=== PATIENT | male | born 1945 | race Caucasian/White ===

== ENCOUNTER 2020-06-03 08:02 | Outpatient (REF) | payer MEDICARE, SELFPAY ==
[2020-06-03 12:08] LABS: INTERNATIONAL NORM RATIO 2.5 (0.9-1.1); Prothrombin Time 30.5 SEC (10.8-13.0)
== END 2020-06-03 08:03 | disposition home or self-care (01) ==
LOC: HO.LHD 08:02
PROVIDERS: Visit Provider Family Medicine
DX: I48.0 Paroxysmal atrial fibrillation (principal); Z79.01 Long term (current) use of anticoagulants
CPT/HCPCS: 36415; 85610

== ENCOUNTER 2020-06-17 08:21 | Outpatient (REF) | payer MEDICARE, SELFPAY ==
[2020-06-17 11:37] LABS: INTERNATIONAL NORM RATIO 2.1 (0.9-1.1); Prothrombin Time 25.1 SEC (10.8-13.0)
== END 2020-06-17 08:22 | disposition home or self-care (01) ==
LOC: HO.LHD 08:21
PROVIDERS: Visit Provider Family Medicine
DX: I48.0 Paroxysmal atrial fibrillation (principal); Z79.01 Long term (current) use of anticoagulants
CPT/HCPCS: 36415; 85610

== ENCOUNTER 2020-07-01 04:15 | Outpatient (REF) | payer MEDICARE, SELFPAY ==
[2020-07-01 10:42] LABS: Basophils Percent Auto 0.1 % (0-2); Eosinophils Absolute Auto 0.1 X10*3/uL (0.0-0.4); Eosinophils Percent Auto 1.6 % (0-4); Lymphocytes Absolute Auto 0.9 X10*3/uL (1.2-4.9)
[2020-07-01 10:44] LABS: Hematocrit 44.4 % (42-52); Hemoglobin 14.1 g/dl (14.0-18.0); Imm Gran Abs Auto 0.01 X10*3/uL (0.00-0.03); Imm Gran Pct Auto 0.1 % (0.0-0.4); Lymphocytes Percent Auto 11.4 % (20-40); Mean Corpuscular HGB Conc 31.8 g/dl (31.0-36.0); Mean Corpuscular Hemoglobin 31.5 pg (27.0-33.0); Mean Corpuscular Volume 99.3 fL (80-98); Mean Platelet Volume 10.9 fL (9.4-12.4); Monocytes Absolute Auto 0.4 X10*3/uL (0.1-1.2); Monocytes Percent Auto 5.9 % (2-11); Neutrophils Percent Auto 80.9 % (45-73); Red Blood Count 4.47 X10*6/uL (4.60-5.80); White Blood Count 7.5 X10*3/uL (4.8-10.8)
[2020-07-01 10:48] LABS: Platelet Count 63 X10*3/uL (160-400)
[2020-07-01 11:04] LABS: Lithium 0.53 mmol/L (0.60-1.20); Prothrombin Time 24.1 SEC (10.8-13.0)
[2020-07-01 11:16] LABS: Anion Gap 13 (12-20); Blood Urea Nitrogen 17 mg/dL (9-16); Carbon Dioxide 27 mmol/L (22-29); Chloride 108 mmol/L (96-108); Estimated Glomerular Filt Rate > 60; Potassium 4.4 mmol/l (3.3-5.1); Sodium 144 mmol/L (135-145)
== END 2020-07-01 04:16 | disposition home or self-care (01) ==
LOC: HO.LHD 04:15
PROVIDERS: Visit Provider Family Medicine
DX: D69.6 Thrombocytopenia, unspecified (principal); I10 Essential (primary) hypertension; Z79.899 Other long term (current) drug therapy; I48.0 Paroxysmal atrial fibrillation
CPT/HCPCS: 36415; 80051; 80178; 82565; 84520; 85025; 85610

== ENCOUNTER 2020-07-15 05:08 | Outpatient (REF) | payer MEDICARE, SELFPAY ==
[2020-07-15 10:51] LABS: INTERNATIONAL NORM RATIO 3.2 (0.9-1.1); Prothrombin Time 38.1 SEC (10.8-13.0)
== END 2020-07-15 05:09 | disposition home or self-care (01) ==
LOC: HO.LHD 05:08
PROVIDERS: Visit Provider Family Medicine
DX: I48.0 Paroxysmal atrial fibrillation (principal); Z79.01 Long term (current) use of anticoagulants
CPT/HCPCS: 36415; 85610

== ENCOUNTER 2020-07-22 08:10 | Outpatient (REF) | payer MEDICARE, SELFPAY ==
[2020-07-22 11:35] LABS: INTERNATIONAL NORM RATIO 3.6 (0.9-1.1); Prothrombin Time 43.9 SEC (10.8-13.0)
== END 2020-07-22 08:11 | disposition home or self-care (01) ==
LOC: HO.LHD 08:10
PROVIDERS: Visit Provider Family Medicine
DX: I48.0 Paroxysmal atrial fibrillation (principal); Z79.01 Long term (current) use of anticoagulants
CPT/HCPCS: 36415; 85610

== ENCOUNTER 2020-07-28 | Outpatient (REF) | payer MEDICARE, SELFPAY ==
[2020-07-28 11:42] LABS: INTERNATIONAL NORM RATIO 1.3 (0.9-1.1); Prothrombin Time 15.4 SEC (10.8-13.0)
== END 2020-07-28 00:01 | disposition home or self-care (01) ==
LOC: HO.LHD
PROVIDERS: Visit Provider Family Medicine
DX: I48.91 Unspecified atrial fibrillation (principal); Z79.01 Long term (current) use of anticoagulants
CPT/HCPCS: 36415; 85610

== ENCOUNTER 2020-07-31 | Outpatient (REF) | payer MEDICARE, SELFPAY ==
[2020-07-31 10:50] LABS: INTERNATIONAL NORM RATIO 1.1 (0.9-1.1); Prothrombin Time 13.4 SEC (10.8-13.0)
== END 2020-07-31 00:01 | disposition home or self-care (01) ==
LOC: HO.LHD
PROVIDERS: Visit Provider Family Medicine
DX: I48.0 Paroxysmal atrial fibrillation (principal); Z79.01 Long term (current) use of anticoagulants
CPT/HCPCS: 36415; 85610

== ENCOUNTER 2020-08-08 08:49 | Outpatient (REF) | payer MEDICARE, SELFPAY ==
[2020-08-08 11:37] LABS: INTERNATIONAL NORM RATIO 2.7 (0.9-1.1); Prothrombin Time 32.3 SEC (10.8-13.0)
== END 2020-08-08 08:50 | disposition home or self-care (01) ==
LOC: HO.LHD 08:49
PROVIDERS: Visit Provider Family Medicine
DX: I48.0 Paroxysmal atrial fibrillation (principal); Z79.01 Long term (current) use of anticoagulants
CPT/HCPCS: 36415; 85610

== ENCOUNTER 2020-08-13 08:22 | Outpatient (REF) | payer MEDICARE, SELFPAY ==
[2020-08-13 11:19] LABS: Prothrombin Time 35.6 SEC (10.8-13.0)
== END 2020-08-13 08:23 | disposition home or self-care (01) ==
LOC: HO.LHD 08:22
PROVIDERS: Visit Provider Family Medicine
DX: I48.0 Paroxysmal atrial fibrillation (principal); Z79.01 Long term (current) use of anticoagulants
CPT/HCPCS: 36415; 85610

== ENCOUNTER 2020-08-20 05:33 | Outpatient (REF) | payer MEDICARE, SELFPAY ==
[2020-08-20 11:01] LABS: Prothrombin Time 35.5 SEC (10.8-13.0)
== END 2020-08-20 05:34 | disposition home or self-care (01) ==
LOC: HO.LHD 05:33
PROVIDERS: Visit Provider Family Medicine
DX: I48.0 Paroxysmal atrial fibrillation (principal); Z79.01 Long term (current) use of anticoagulants
CPT/HCPCS: 36415; 85610

== ENCOUNTER 2020-09-03 | Outpatient (REF) | payer MEDICARE, SELFPAY ==
[2020-09-03 10:59] LABS: Prothrombin Time 48.3 SEC (10.8-13.0)
== END 2020-09-03 00:01 ==
LOC: HO.LHD
PROVIDERS: Visit Provider Family Medicine
DX: I48.0 Paroxysmal atrial fibrillation (principal); Z79.01 Long term (current) use of anticoagulants
CPT/HCPCS: 36415; 85610

== ENCOUNTER 2020-09-10 | Outpatient (REF) | payer MEDICARE, SELFPAY ==
[2020-09-10 11:15] LABS: INTERNATIONAL NORM RATIO 3.5 (0.9-1.1); Prothrombin Time 42.2 SEC (10.8-13.0)
== END 2020-09-10 00:01 | disposition home or self-care (01) ==
LOC: HO.LHD
PROVIDERS: Visit Provider Family Medicine
DX: I48.0 Paroxysmal atrial fibrillation (principal); Z79.01 Long term (current) use of anticoagulants
CPT/HCPCS: 36415; 85610

== ENCOUNTER 2020-09-18 05:00 | Outpatient (REF) | payer MEDICARE, SELFPAY ==
[2020-09-18 11:27] LABS: INTERNATIONAL NORM RATIO 2.6 (0.9-1.1); Prothrombin Time 30.7 SEC (10.8-13.0)
== END 2020-09-18 05:01 | disposition home or self-care (01) ==
LOC: HO.LHD 05:00
PROVIDERS: Visit Provider Family Medicine
DX: I48.0 Paroxysmal atrial fibrillation (principal); Z79.01 Long term (current) use of anticoagulants
CPT/HCPCS: 36415; 85610

== ENCOUNTER 2020-10-02 13:52 | Outpatient (REF) | payer MEDICARE, SELFPAY ==
[2020-10-02 11:23] LABS: INTERNATIONAL NORM RATIO 3.9 (0.9-1.1); Prothrombin Time 46.5 SEC (10.8-13.0)
== END 2020-10-02 13:53 | disposition home or self-care (01) ==
LOC: HO.LHD 13:52
PROVIDERS: Visit Provider Family Medicine
DX: E03.9 Hypothyroidism, unspecified (principal)
CPT/HCPCS: 36415; 84439; 85610

== ENCOUNTER 2020-10-04 09:57 | Outpatient (REF) | payer MEDICARE, SELFPAY ==
--- NOTE | ~2020-10-04 | XR_ITS ---
EXAMINATION: XR CHEST CLINICAL INFORMATION: Shortness of breath. COMPARISON: 09/27/2018 chest radiograph. TECHNIQUE: 2 views of the chest were obtained. FINDINGS: An infiltrate is seen in the right lower lobe. The right upper lung field and left lung are clear. There are no pleural effusions. The heart and mediastinal structures are unremarkable. A left-sided pacemaker appears in good position. XR/XR chest 2V IMPRESSION: Right lower lobe infiltrate.
[2020-10-04 11:13] LABS: Eosinophils Absolute Auto 0.1 X10*3/uL (0.0-0.4); Hemoglobin 13.9 g/dl (14.0-18.0); Imm Gran Abs Auto 0.01 X10*3/uL (0.00-0.03); Imm Gran Pct Auto 0.2 % (0.0-0.4); MANUAL DIFF FLAG SCAN; Monocytes Absolute Auto 0.3 X10*3/uL (0.1-1.2); PLT CLUMP 1; SCAN SMEAR FLAG 1
[2020-10-04 11:15] LABS: Hematocrit 42.9 % (42-52); Lymphocytes Absolute Auto 0.6 X10*3/uL (1.2-4.9); Lymphocytes Percent Auto 11.8 % (20-40); Mean Corpuscular HGB Conc 32.4 g/dl (31.0-36.0); Mean Corpuscular Volume 95.5 fL (80-98); Mean Platelet Volume 10.8 fL (9.4-12.4); Monocytes Percent Auto 6.6 % (2-11); Neutrophils Absolute Auto 4.2 X10*3/uL (2.0-8.3); Neutrophils Percent Auto 80.4 % (45-73); Red Blood Count 4.49 X10*6/uL (4.60-5.80); Red Cell Distribution Width 14.2 % (11.0-16.0); White Blood Count 5.2 X10*3/uL (4.8-10.8)
[2020-10-04 11:19] LABS: Platelet Count 63 X10*3/uL (160-400)
[2020-10-04 11:37] LABS: Lithium 0.62 mmol/L (0.60-1.20)
[2020-10-04 11:42] LABS: SLIDE REVIEW VERIFIED
[2020-10-04 11:51] LABS: Alanine Aminotransferase 17 U/L (0-40); Albumin Level 3.8 g/dL (3.5-5.0); Alkaline Phosphatase 110 U/L (39-117); Anion Gap 12 (12-20); Aspartate Amino Transferase 13 U/L (5-37); Bilirubin Total 0.6 mg/dL (0.0-1.0); Blood Urea Nitrogen 12 mg/dL (9-16); Calcium 7.9 mg/dL (8.4-10.2); Carbon Dioxide 25 mmol/L (22-29); Chloride 107 mmol/L (96-108); Estimated Glomerular Filt Rate 54; Glucose Fasting 125 mg/dL (60-99); Sodium 140 mmol/L (135-145); Total Protein 6.5 g/dL (6.5-8.0)
== END 2020-10-04 09:58 | disposition home or self-care (01) ==
LOC: HO.LAB 09:57
PROVIDERS: PCP Family Medicine; Visit Provider Family Medicine
DX: R06.02 Shortness of breath (principal); R63.1 Polydipsia; Z79.899 Other long term (current) drug therapy
CPT/HCPCS: 36415; 71046; 80053; 80178; 85025

== ENCOUNTER 2020-10-28 07:10 | Outpatient (REF) | payer MEDICARE, SELFPAY ==
[2020-10-28 11:21] LABS: INTERNATIONAL NORM RATIO 2.1 (0.9-1.1); Prothrombin Time 25.4 SEC (10.8-13.0)
== END 2020-10-28 07:11 | disposition home or self-care (01) ==
LOC: HO.LHD 07:10
PROVIDERS: Visit Provider Family Medicine
DX: I48.0 Paroxysmal atrial fibrillation (principal); Z79.01 Long term (current) use of anticoagulants
CPT/HCPCS: 36415; 85610

== ENCOUNTER 2020-11-11 06:56 | Outpatient (REF) | payer MEDICARE, SELFPAY ==
[2020-11-11 11:24] LABS: INTERNATIONAL NORM RATIO 2.2 (0.9-1.1); Prothrombin Time 26.9 SEC (10.8-13.0)
== END 2020-11-11 06:57 | disposition home or self-care (01) ==
LOC: HO.LHD 06:56
PROVIDERS: Visit Provider Family Medicine
DX: I48.0 Paroxysmal atrial fibrillation (principal)
CPT/HCPCS: 36415; 85610

== ENCOUNTER 2020-11-25 07:01 | Outpatient (REF) | payer MEDICARE, SELFPAY ==
[2020-11-25 12:04] LABS: INTERNATIONAL NORM RATIO 3.9 (0.9-1.1); Prothrombin Time 47.5 SEC (10.8-13.0)
== END 2020-11-25 07:02 | disposition home or self-care (01) ==
LOC: HO.LHD 07:01
PROVIDERS: Visit Provider Family Medicine
DX: I48.0 Paroxysmal atrial fibrillation (principal)
CPT/HCPCS: 36415; 85610

== ENCOUNTER 2020-11-27 07:19 | Outpatient (REF) | payer MEDICARE, SELFPAY ==
[2020-11-27 11:44] LABS: INTERNATIONAL NORM RATIO 3.9 (0.9-1.1)
== END 2020-11-27 07:20 | disposition home or self-care (01) ==
LOC: HO.LHD 07:19
PROVIDERS: Visit Provider Family Medicine
DX: I48.0 Paroxysmal atrial fibrillation (principal)
CPT/HCPCS: 36415; 85610

== ENCOUNTER 2020-12-04 00:10 | Outpatient (REF) | payer MEDICARE, SELFPAY ==
[2020-12-04 11:15] LABS: INTERNATIONAL NORM RATIO 1.9 (0.9-1.1); Prothrombin Time 22.2 SEC (10.8-13.0)
== END 2020-12-04 00:11 | disposition home or self-care (01) ==
LOC: HO.LHD 00:10
PROVIDERS: Visit Provider Family Medicine
DX: I48.0 Paroxysmal atrial fibrillation (principal)
CPT/HCPCS: 36415; 85610

== ENCOUNTER 2020-12-11 01:50 | Outpatient (REF) | payer MEDICARE, SELFPAY ==
[2020-12-11 13:17] LABS: INTERNATIONAL NORM RATIO 1.9 (0.9-1.1); Prothrombin Time 23.1 SEC (10.8-13.0)
== END 2020-12-11 01:51 | disposition home or self-care (01) ==
LOC: HO.LHD 01:50
PROVIDERS: Visit Provider Family Medicine
DX: I48.0 Paroxysmal atrial fibrillation (principal); Z79.01 Long term (current) use of anticoagulants; Z51.81 Encounter for therapeutic drug level monitoring
CPT/HCPCS: 36415; 85610

== ENCOUNTER 2020-12-25 01:07 | Outpatient (REF) | payer MEDICARE, SELFPAY ==
[2020-12-25 11:50] LABS: INTERNATIONAL NORM RATIO 1.7 (0.9-1.1); Prothrombin Time 19.8 SEC (10.8-13.0)
== END 2020-12-25 01:08 | disposition home or self-care (01) ==
LOC: HO.LHD 01:07
PROVIDERS: Visit Provider Family Medicine
DX: I48.0 Paroxysmal atrial fibrillation (principal)
CPT/HCPCS: 36415; 85610

== ENCOUNTER 2021-01-08 00:35 | Outpatient (REF) | payer MEDICARE, SELFPAY ==
[2021-01-08 11:40] LABS: INTERNATIONAL NORM RATIO 1.5 (0.9-1.1); Prothrombin Time 17.6 SEC (10.8-13.0)
== END 2021-01-08 00:36 | disposition home or self-care (01) ==
LOC: HO.LHD 00:35
PROVIDERS: Visit Provider Family Medicine
DX: I48.0 Paroxysmal atrial fibrillation (principal)
CPT/HCPCS: 36415; 85610

== ENCOUNTER 2021-01-30 08:36 | Outpatient (REF) | payer MEDICARE, SELFPAY ==
[2021-01-30 11:15] LABS: INTERNATIONAL NORM RATIO 1.4 (0.9-1.1); Prothrombin Time 17.2 SEC (10.8-13.0)
== END 2021-01-30 08:37 | disposition home or self-care (01) ==
LOC: HO.LHD 08:36
PROVIDERS: Visit Provider Family Medicine
DX: I48.0 Paroxysmal atrial fibrillation (principal)
CPT/HCPCS: 36415; 85610

== ENCOUNTER 2021-02-05 06:37 | Outpatient (REF) | payer MEDICARE, SELFPAY ==
[2021-02-05 11:09] LABS: INTERNATIONAL NORM RATIO 1.6 (0.9-1.1); Prothrombin Time 18.6 SEC (10.8-13.0)
== END 2021-02-05 06:38 | disposition home or self-care (01) ==
LOC: HO.LHD 06:37
PROVIDERS: Visit Provider Family Medicine
DX: I48.0 Paroxysmal atrial fibrillation (principal)
CPT/HCPCS: 36415; 85610

== ENCOUNTER 2021-02-19 00:39 | Outpatient (REF) | payer MEDICARE, SELFPAY ==
[2021-02-19 11:59] LABS: INTERNATIONAL NORM RATIO 1.9 (0.9-1.1); Prothrombin Time 23.3 SEC (10.8-13.0)
== END 2021-02-19 00:40 | disposition home or self-care (01) ==
LOC: HO.LHD 00:39
PROVIDERS: Visit Provider Family Medicine
DX: I48.0 Paroxysmal atrial fibrillation (principal)
CPT/HCPCS: 36415; 85610

== ENCOUNTER → 2021-02-23 14:35 | Outpatient (BNVA) | payer MEDICARE, SELFPAY | PROVIDERS: PCP Family Medicine; Visit Provider Internal Medicine Cardiovascular Disease | DX: Z45.018 Encounter for adjustment and management of other part of cardiac pacemaker (principal); R06.02 Shortness of breath; I48.92 Unspecified atrial flutter | CPT/HCPCS: 93005; 99212 ==

== ENCOUNTER 2021-03-05 01:12 | Outpatient (REF) | payer MEDICARE, SELFPAY ==
[2021-03-05 11:23] LABS: INTERNATIONAL NORM RATIO 1.8 (0.9-1.1); Prothrombin Time 20.8 SEC (9.9-13.0)
== END 2021-03-05 01:13 | disposition home or self-care (01) ==
LOC: HO.LHD 01:12
PROVIDERS: Visit Provider Family Medicine
DX: Z13.89 Encounter for screening for other disorder (principal)
CPT/HCPCS: 36415; 85610

== ENCOUNTER 2021-03-17 10:08 | Emergency (ER) | payer MEDICARE, SELFPAY ==
--- NOTE | 2021-03-17 | ECG_ITS ---
Test Reason : SOB,RAPID HR Blood Pressure : / mmHG Vent. Rate : 061 BPM Atrial Rate : 078 BPM P-R Int : 242 ms QRS Dur : 162 ms QT Int : 478 ms P-R-T Axes : -28 -32 122 degrees QTc Int : 481 ms Poor data quality AV dual-paced rhythm Abnormal ECG When compared with ECG of 27-SEP-2018 12:45, Poor data quality in current ECG precludes serial comparison Referred By: Radha Florian Electronically Signed By:FAYE HIGGINS MD
--- NOTE | ~2021-03-17 | XR_ITS ---
EXAMINATION: XR CHEST CLINICAL INFORMATION: SOB, chest pain COMPARISON: None TECHNIQUE: 2 views of the chest were obtained. FINDINGS: The lungs are well-expanded and clear of acute process. The heart size and pulmonary vascularity is normal. There are dual pacer electrodes in right atrium and right ventricle. No gross bony abnormality seen. XR/XR chest 2V IMPRESSION: Unremarkable chest exam.
[2021-03-17 10:15] VITALS: BP 158/90; PULSE 65; O2SAT 94
[2021-03-17 10:17] VITALS: BP 156/78; PULSE 64; RESP 18; TEMP 36.8; O2SAT 97; BMI 34.7
--- NOTE | 2021-03-17 10:33 | ED.ARRPALP ---
HPI - Arrhythmia/Palpitations General Chief Complaint: Arrhythmia/Palpitations Stated Complaint: tachy, dizzy Time Seen by Provider: 03/17/21 10:19 Source: patient and EMS Mode of arrival: EMS Limitations: no limitations History of Present Illness HPI narrative: 75-year-old male with a past medical history of atrial flutter on coumadin, SSS s/p pacemaker, hypertension, thrombocytopenia, asthma here with complaints of shortness of breath, palpitations. Patient tells me he has chronic shortness of breath and has had this intermittently on off for months. He did note this morning when he woke up at 04:00 to the bathroom he had a sensation of chest ?fluttering. This has been intermittent throughout the morning since. He does not feel like it is worsened with position changes. He denies any associated pain, leg swelling, leg pain, fevers, chills, cough. Of note, the patient was seen by Dr. Martini on February 23. At that time he was complaining of shortness of breath. He had his pacemaker interrogated. Due to complaints of shortness of breath an echocardiogram was ordered to r/o LV dysfunction which has not been completed. Related Data Home Medications Medication Instructions Recorded Confirmed atorvastatin 80 mg tablet 80 mg PO DAILY 02/23/21 02/23/21 bupropion HCl 300 mg 24 hr tablet, 300 mg PO QAM 02/23/21 02/23/21 extended release folic acid 1 mg tablet 1 mg PO DAILY 02/23/21 02/23/21 gabapentin 300 mg capsule 300 mg PO BID 02/23/21 02/23/21 levothyroxine 50 mcg capsule 50 mcg PO DAILY 02/23/21 02/23/21 lithium carbonate 300 mg capsule 300 mg PO BID 02/23/21 02/23/21 metoprolol tartrate 25 mg tablet 25 mg PO DAILY 02/23/21 02/23/21 warfarin 1 mg tablet 1 mg PO DAILY 02/23/21 02/23/21 warfarin 5 mg tablet 5 mg PO DAILY 02/23/21 02/23/21 Allergies Allergy/AdvReac Type Severity Reaction Status Date / Time methylphenidate [Ritalin] Allergy Unknown Verified 04/17/20 00:00 ragweed pollen [RAGWEED] Allergy Unknown SNEEZE Unverified 05/15/20 15:13 tizanidine [Zanaflex] Allergy Unknown Verified 04/17/20 00:00 Review of Systems Review of Systems: Yes all other systems are reviewed and are negative Constitutional: Constitutional: Reports no additional constitutional complaints, Denies body ache(s), Denies chills, Denies fever(s), Denies headache(s) and Denies weakness Eyes: Eyes: Reports no additional eye complaints and Denies change in vision ENT: Reports system reviewed and no additional complaints, except as documented, Denies dizziness, Denies headache(s), Denies nasal congestion, Denies nasal discharge and Denies neck pain Cardiovascular: Cardiovascular: Reports no additional cardiovascular complaints, Denies chest pain, Denies leg edema, Reports palpitations and Reports dyspnea Respiratory: Respiratory: Reports no additional respiratory complaints, Denies cough and Reports dyspnea Gastrointestinal: Gastrointestinal: Reports no additional gastrointestinal complaints, Denies abdominal pain, Denies diarrhea, Denies nausea and Denies vomiting Genitourinary: Genitourinary: Denies urinary incontinence Musculoskeletal: Musculoskeletal: Reports no additional musculoskeletal complaints, Denies back pain, Denies arthralgias, Denies joint swelling, Denies neck pain, Denies numbness and Denies tingling Integumentary/Breasts: Skin/Breast: Reports system reviewed and no additional complaints, except as docu and Denies rash Neurologic: Reports system reviewed and no additional complaints, except as documented, Denies Abnormal speech present, Denies dizziness, Denies headache(s), Denies numbness, Denies tingling and Denies weakness Endocrine: Endocrine: Reports palpitations PMFSH Past Medical History Attestation statement: The following information was validated with the patient. Source: old records reviewed and nursing notes reviewed Medical History (Updated 03/17/21 @ 13:49 by Ashu Brooke NP) Asthma Cardiac pacemaker in situ DJD (degenerative joint disease) High cholesterol HTN (hypertension) Hypothyroidism IBS (irritable bowel syndrome) Parkinsons Paroxysmal atrial flutter Peripheral neuropathy Psychiatric diagnosis Sick sinus syndrome Social History Social History Alcohol intake: current Alcohol intake frequency: a few times a week Alcohol type: beer Patient Tobacco Use Status: Former Tobacco user Use of substances other than those prescribed or required for medical reasons: No Advance Directives: Yes Advance Directives on File: Yes Advance Directives Date on File: 03/17/21 Physical Exam Vital Signs: Vital Signs: Last Vital Signs Temp 98.2 F 03/17/21 10:17 Pulse 68 03/17/21 12:23 Resp 18 03/17/21 12:23 BP 117/67 03/17/21 12:23 Pulse Ox 93 03/17/21 12:23 Oxygen Flow Rate 3 03/17/21 10:17 Body Mass Index 34.7 Const: General: cooperative, healthy appearing, comfortable and no acute distress Orientation/consciousness: patient oriented x3 Limitations: no limitations HENMT: Head: Yes normal to inspection Ears: hearing grossly normal bilaterally General nose exam: Normal external nose present Face and sinus: Yes normal facial exam Mouth: Normal oral and palatal mucosa present Throat: Yes posterior oropharynx normal Eyes: General: appearance normal, both eyes and all related structures Pupils: Equal, round and reactive pupils present Neck: Neck: Yes normal visual inspection Chest: Chest palpation & inspection: normal inspection of the chest Resp: Other: Diminished breath sounds bilaterally. Speaking short phrases Effort & Inspection: normal respiratory effort Cardio: Rate: regular rate Rhythm: regular rhythm Peripheral pulses: Peripheral pulses 2+ throughout GI: Inspection: Yes normal to inspection Palpation (GI): Soft to palpation and nontender Auscultation: normal bowel sounds Back/Spine/Pelvis: Thoracic/Lumbar Spine: thoracic and lumbar spine normal to inspection Skin: General skin exam: no rashes or lesions noted Neuro: General: patient oriented x3, no focal motor deficits and normal sensation to monofilament Cranial nerves: Yes Equal, round and reactive pupils present Cognition (Neuro): normal cognition Speech: No Abnormal speech present Gait exam (Neuro): Normal gait present Motor exam (neuro): 5/5 motor strength present throughout Extrem: General: Yes normal to inspection, Yes no pedal edema and Yes no calf tenderness Course Course Course Narrative: 75-year-old male here with complaints of a chronic shortness of breath now with symptoms of chest fluttering intermittent since 04:00. No other complaints. Patient is hemodynamically stable. He has a atrial paced rhythm with a rate of 61 on arrival. Mild shortness of breath noted with speaking. Diminished breath sounds with stable saturations 94% on room air. Will check EKG, chest x-ray, labs. 1040-reviewed records from Dr. Roy office. 1115-chest x-ray unremarkable. Initial set of labs showed indeterminate troponin but otherwise labs look at baseline for patient. EKG shows no ischemic changes. He does have an atrial paced rhythm with a rate of 60. Plan for repeat 3 hour troponin. Will also perform an ambulatory oxygen saturation. 1133-patient walked with a steady gait with a pulse oximeter of 93-95% with no tachypnea on RA. 1430-repeat troponin delta. Patient is speaking full sentences. Oxygen saturation stable on room air. He can follow up outpatient with his providers. Reviewed worrisome signs and symptoms and when to return to the emergency department. Comfortable discharge home. MDM - Arrhythmia/Palpitations Differential Diagnosis Differential diagnosis: Likely palpitations, anxiety and artial flutter Medical Records Attestation: I reviewed the patient's medical records. Lab Data Attestation: I reviewed the patient's lab results. Result diagrams: 03/17/21 10:33 03/17/21 10:33 Labs: Lab Results 03/17/21 03/17/21 03/17/21 Range/Units 10:33 10:33 10:33 WBC 8.8 (4.8-10.8) X10*3/uL RBC 4.44 L (4.60-5.80) X10*6/uL Hgb 14.2 (14.0-18.0) g/dl Hct 44.0 (42-52) % MCV 99.1 H (80-98) fL MCH 32.0 (27.0-33.0) pg MCHC 32.3 (31.0-36.0) g/dl RDW 14.5 (11.0-16.0) % Plt Count 62 L (160-400) X10*3/uL MPV 10.9 (9.4-12.4) fL Immature Gran % (Auto) 0.5 H (0.0-0.4) % Neut % (Auto) 81.6 H (45-73) % Lymph % (Auto) 10.7 L (20-40) % Smith % (Auto) 5.7 (2-11) % Eos % (Auto) 1.4 (0-4) % Baso % (Auto) 0.1 (0-2) % Lymph # (Auto) 1.0 L (1.2-4.9) X10*3/uL Smith # (Auto) 0.5 (0.1-1.2) X10*3/uL Eos # (Auto) 0.1 (0.0-0.4) X10*3/uL Baso # (Auto) 0.0 (0.0-0.2) X10*3/uL Abs Immat Gran (auto) 0.04 H (0.00-0.03) X10*3/uL Absolute Neuts (auto) 7.2 (2.0-8.3) X10*3/uL Absolute Nucleated RBC 0.000 (0.0-0.012) X10*3/uL Nucleated RBC % (auto) 0.0 (0.0-0.2) /100WBC PT 18.6 H (9.9-13.0) SEC INR 1.6 H (0.9-1.1) Sodium 141 (135-145) mmol/L Potassium 4.1 (3.3-5.1) mmol/L Chloride 110 H (96-108) mmol/L Carbon Dioxide 25 (22-29) mmol/L Anion Gap 10 L (12-20) BUN 20 H D (9-16) mg/dL Creatinine 1.14 (0.5-1.4) mg/dL Estim Creat Clear Calc 76.6 Estimated GFR > 60 Random Glucose 103 (60-115) mg/dL Calcium 8.2 L (8.4-10.2) mg/dL Magnesium (1.6-2.6) mg/dL Total Bilirubin (0.0-1.0) mg/dL Direct Bilirubin (0.0-0.5) mg/dL AST (5-37) U/L ALT (0-40) U/L Alkaline Phosphatase (39-117) U/L Troponin I High Sens (<3.5-35.0) ng/L B-Natriuretic Peptide (<100) pg/mL Total Protein (6.5-8.0) g/dL Albumin (3.5-5.0) g/dL 03/17/21 03/17/21 03/17/21 Range/Units 10:33 10:33 13:15 WBC (4.8-10.8) X10*3/uL RBC (4.60-5.80) X10*6/uL Hgb (14.0-18.0) g/dl Hct (42-52) % MCV (80-98) fL MCH (27.0-33.0) pg MCHC (31.0-36.0) g/dl RDW (11.0-16.0) % Plt Count (160-400) X10*3/uL MPV (9.4-12.4) fL Immature Gran % (Auto) (0.0-0.4) % Neut % (Auto) (45-73) % Lymph % (Auto) (20-40) % Smith % (Auto) (2-11) % Eos % (Auto) (0-4) % Baso % (Auto) (0-2) % Lymph # (Auto) (1.2-4.9) X10*3/uL Smith # (Auto) (0.1-1.2) X10*3/uL Eos # (Auto) (0.0-0.4) X10*3/uL Baso # (Auto) (0.0-0.2) X10*3/uL Abs Immat Gran (auto) (0.00-0.03) X10*3/uL Absolute Neuts (auto) (2.0-8.3) X10*3/uL Absolute Nucleated RBC (0.0-0.012) X10*3/uL Nucleated RBC % (auto) (0.0-0.2) /100WBC PT (9.9-13.0) SEC INR (0.9-1.1) Sodium (135-145) mmol/L Potassium (3.3-5.1) mmol/L Chloride (96-108) mmol/L Carbon Dioxide (22-29) mmol/L Anion Gap (12-20) BUN (9-16) mg/dL Creatinine (0.5-1.4) mg/dL Estim Creat Clear Calc Estimated GFR Random Glucose (60-115) mg/dL Calcium (8.4-10.2) mg/dL Magnesium 2.3 (1.6-2.6) mg/dL Total Bilirubin 0.5 (0.0-1.0) mg/dL Direct Bilirubin 0.2 (0.0-0.5) mg/dL AST 13 (5-37) U/L ALT < 6 (0-40) U/L Alkaline Phosphatase 91 (39-117) U/L Troponin I High Sens 4.1 5.4 (<3.5-35.0) ng/L B-Natriuretic Peptide 57 (<100) pg/mL Total Protein 6.5 (6.5-8.0) g/dL Albumin 3.8 (3.5-5.0) g/dL Imaging Data Chest x-ray: Attestation: I personally reviewed and interpreted this imaging study as follows: Radiologist's impression: [facility] [place], [place] [id number] ReportSigned Patient: Louie Cloud CMR#: [id number]: 1945cct:[id number]/Sex: 75 / MADM Date: 03/17/21Loc: EDAttending Dr: Ordering Physician: ASHU BROOKE NP Date of Service: 03/17/21 Procedure(s): XR chest 2V Accession Number(s): [id number] cc: ASHU BROOKE NP~ EXAMINATION: XR CHEST CLINICAL INFORMATION: SOB, chest pain COMPARISON: None TECHNIQUE: 2 views of the chest were obtained. FINDINGS: The lungs are well-expanded and clear of acute process. The heart size and pulmonary vascularity is normal. There are dual pacer electrodes in right atrium and right ventricle. No gross bony abnormality seen. XR/XR chest 2V IMPRESSION: Unremarkable chest exam. ECG Data Attestation: I personally reviewed and interpreted this ECG as follows: ECG interpretation date: 03/17/21 ECG interpretation time: 10:14 Interpretation: Atrial paced rhythm with a rate of 61 Discharge Plan Discharge Clinical Impression: SOB (shortness of breath) on exertion, Palpitations Patient Disposition: Home, Self-Care Instructions: Heart Palpitations (ED), Dyspnea (ED) Additional Instructions: Your EKG, chest x-ray and labs are all normal Prescriptions: No Action gabapentin 300 mg capsule 300 mg PO BID RF: 0 warfarin 5 mg tablet 5 mg PO DAILY RF: 0 levothyroxine 50 mcg capsule 50 mcg PO DAILY RF: 0 metoprolol tartrate 25 mg tablet 25 mg PO DAILY RF: 0 warfarin 1 mg tablet 1 mg PO DAILY RF: 0 folic acid 1 mg tablet 1 mg PO DAILY RF: 0 atorvastatin 80 mg tablet 80 mg PO DAILY RF: 0 bupropion HCl 300 mg tablet extended release 24 hr 300 mg PO QAM RF: 0 lithium carbonate 300 mg capsule 300 mg PO BID RF: 0 Referrals: Manjit Roy MD [Primary Care Provider] - 2 days Interventions: ED Discharge Assessment Last Done: 03/17/21 14:17 Discharge Date/Time: 03/17/21 14:18
[2021-03-17 10:36] VITALS: PULSE 64
--- NOTE | 2021-03-17 10:37 | PC.NURSE ---
IV placed to left AC by EMS. Labs obtained and sent to lab. Pt in x-ray for cxr. VSS. A-fib v-paced on monitor.
[2021-03-17 10:43] LABS: Basophils Percent Auto 0.1 % (0-2); Eosinophils Absolute Auto 0.1 X10*3/uL (0.0-0.4); Red Cell Distribution Width 14.5 % (11.0-16.0)
[2021-03-17 10:45] LABS: Eosinophils Percent Auto 1.4 % (0-4); Hemoglobin 14.2 g/dl (14.0-18.0); Imm Gran Abs Auto 0.04 X10*3/uL (0.00-0.03); Imm Gran Pct Auto 0.5 % (0.0-0.4); Lymphocytes Percent Auto 10.7 % (20-40); Mean Corpuscular HGB Conc 32.3 g/dl (31.0-36.0); Mean Corpuscular Volume 99.1 fL (80-98); Mean Platelet Volume 10.9 fL (9.4-12.4); Monocytes Absolute Auto 0.5 X10*3/uL (0.1-1.2); Monocytes Percent Auto 5.7 % (2-11); Neutrophils Absolute Auto 7.2 X10*3/uL (2.0-8.3); Neutrophils Percent Auto 81.6 % (45-73); Platelet Count 62 X10*3/uL (160-400); Red Blood Count 4.44 X10*6/uL (4.60-5.80); White Blood Count 8.8 X10*3/uL (4.8-10.8)
[2021-03-17 10:47] LABS: INTERNATIONAL NORM RATIO 1.6 (0.9-1.1); MANUAL DIFF FLAG NO; Prothrombin Time 18.6 SEC (9.9-13.0)
[2021-03-17 11:04] LABS: Anion Gap 10 (12-20); Blood Urea Nitrogen 20 mg/dL (9-16); Calcium 8.2 mg/dL (8.4-10.2); Carbon Dioxide 25 mmol/L (22-29); Chloride 110 mmol/L (96-108); Creatinine Clr Calc Pharmacy 76.6; Estimated Glomerular Filt Rate > 60; Glucose Random 103 mg/dL (60-115); Potassium 4.1 mmol/L (3.3-5.1); Sodium 141 mmol/L (135-145)
[2021-03-17 11:07] LABS: B Type Natriuretic Peptide 57 pg/mL (<100); Troponin-I High Sensitivity 4.1 ng/L (<3.5-35.0)
[2021-03-17 11:08] LABS: Alanine Aminotransferase < 6 U/L (0-40); Albumin Level 3.8 g/dL (3.5-5.0); Alkaline Phosphatase 91 U/L (39-117); Aspartate Amino Transferase 13 U/L (5-37); Bilirubin Direct 0.2 mg/dL (0.0-0.5); Bilirubin Total 0.5 mg/dL (0.0-1.0); Magnesium 2.3 mg/dL (1.6-2.6); Total Protein 6.5 g/dL (6.5-8.0)
[2021-03-17 11:27] VITALS: BP 157/78; PULSE 80; RESP 20; O2SAT 94
--- NOTE | 2021-03-17 11:29 | PC.NURSE ---
Pt's sats 93-95% on room air. Sats do not change/drop with ambulation.
[2021-03-17 12:23] VITALS: BP 117/67; PULSE 68; RESP 18; O2SAT 93
--- NOTE | 2021-03-17 13:25 | PC.NURSE ---
Repeat trop sent, pt remains a fib on tele, denies complaints or needs.
[2021-03-17 13:43] LABS: Troponin-I High Sensitivity 5.4 ng/L (<3.5-35.0)
== END 2021-03-17 14:18 | disposition home or self-care (01) ==
PROVIDERS: Nurse Practitioner Family; Emergency Provider Emergency Medicine; PCP Family Medicine
DX: R06.02 Shortness of breath (principal); R00.2 Palpitations; I48.92 Unspecified atrial flutter; I10 Essential (primary) hypertension; J45.909 Unspecified asthma, uncomplicated; G20 Parkinson's disease; Z79.01 Long term (current) use of anticoagulants; Z79.899 Other long term (current) drug therapy; Z95.0 Presence of cardiac pacemaker
CPT/HCPCS: 36415; 71046; 80048; 80076; 83735; 83880; 84484; 85025; 85610; 93005; 99285

== ENCOUNTER 2021-03-19 07:22 | Outpatient (REF) | payer MEDICARE, SELFPAY ==
[2021-03-19 12:23] LABS: Prothrombin Time 22.7 SEC (9.9-13.0)
== END 2021-03-19 07:23 | disposition home or self-care (01) ==
LOC: HO.LHD 07:22
PROVIDERS: Visit Provider Family Medicine
DX: I48.0 Paroxysmal atrial fibrillation (principal)
CPT/HCPCS: 36415; 85610

== ENCOUNTER 2021-04-02 07:20 | Outpatient (REF) | payer MEDICARE, SELFPAY ==
[2021-04-02 11:32] LABS: INTERNATIONAL NORM RATIO 1.9 (0.9-1.1); Prothrombin Time 22.3 SEC (9.9-13.0)
[2021-04-02 12:03] LABS: Free T4 (Free Thyroxine) 1.04 ng/dL (0.71-1.85); Thyroid Stimulating Hormone 1.08 uIU/mL (0.32-4.0)
== END 2021-04-02 07:21 | disposition home or self-care (01) ==
LOC: HO.LHD 07:20
PROVIDERS: Visit Provider Family Medicine
DX: I48.0 Paroxysmal atrial fibrillation (principal); E03.9 Hypothyroidism, unspecified; Z79.899 Other long term (current) drug therapy
CPT/HCPCS: 36415; 80178; 84439; 84443; 85610

== ENCOUNTER → 2021-04-16 07:03 | Outpatient (REF) | payer MEDICARE, SELFPAY ==
[2021-04-16 10:45] LABS: INTERNATIONAL NORM RATIO 1.4 (0.9-1.1); Prothrombin Time 16.4 SEC (9.9-13.0)
--- NOTE | 2021-04-16 12:53 | CA_ITS ---
Transthoracic Echocardiogram Patient (Last, First, Middle): Louie Cloud C Gender: Male Date of : 1945 Age: 76 Procedure Date: 04/16/2021 Procedure Type: Transthoracic Echocardiogram Location: OP Height: 187.96 cm Weight: 122.47 kg BSA: 2.47 m2 Heart Rate: bpm BP: 130 / 70 mmHg Compound Worker: Referring MD: Fly Martini MD Corporate Human Resources Manager: Fly Martini MD Symptoms: R06.02 - Shortness of breath Study Quality: Fair ECG Rhythm: Sinus Conclusions: - 1. Normal LV systolic function with impaired relaxation filling pattern 2. Normal cardiac valvular Doppler 3. Normal RV systolic pressure 4. Mildly dilated ascending aorta at 3.9 cm 5. No gross pericardial effusion Findings Left Ventricle Normal left ventricular size, thickness, and systolic function. The visually estimated ejection fraction is between 55-60%. There is paradoxical septal motion consistent with a right ventricular pacemaker. Spectral Doppler is indicative of an impaired relaxation filling pattern. E/E prime ratio is between 8 and 15 consistent with indeterminate filling pressures. Right Ventricle Normal right ventricular cavity size and systolic function. There is a pacemaker wire seen in the right ventricle. Atria The left atrium is likely dilated. Interatrial shunt cannot be excluded. The right atrium is normal in size. A pacemaker wire is identified in the right atrium. Aortic Valve The aortic valve was not well visualized. There is no aortic valve stenosis. There is no aortic valve regurgitation. Mitral Valve There is mild anterior mitral leaflet thickening. There is mild mitral annular calcification. There is trace mitral valve regurgitation. There is no mitral valve stenosis. Pulmonic Valve The pulmonic valve was not well visualized. Tricuspid Valve Likely normal tricuspid valve structure and function. There is trace tricuspid valve regurgitation. The right ventricular systolic pressure is normal. The right ventricular systolic pressure is 34 mmHg. Normal right atrial pressure. There is no evidence of pulmonary hypertension. Great Vessels The pulmonary artery was not well visualized. There is mild dilatation of the ascending aorta measuring 3.90 cm. Venous The inferior vena cava is normal in size and collapses greater than 50% with inspiration. Pericardium/Pleural There is no evidence of pericardial effusion. Prior Study Comparison Changes noted compared to prior study dated: 04/07/2020. Ascending aorta is noted to be mildly dilated on this study. Measurements 2D Linear Measurements RVIDd: 3.50 RVIDd Index: 1.42 IVSd: 0.97 0.6-0.9/0.6-1.0 cm LVIDd: 5.92 3.9-5.3/4.2-5.9 cm LVIDd Index: 2.40 2.4-3.2/2.2-3.1 cm/m2 LVIDs: 3.86 2.0-3.6 cm LVPWd: 1.24 0.7-1.1 cm Ao Root: 3.70 2.1-3.5 cm LA Diam: 4.80 2.7-3.8/3.0-4.0 cm LAIDs Index: 1.94 1.5-2.3 cm/m2 LV Mass: 343.30 67-162/88-224 g LV Mass Index: 138.99 43-95/49-115 g/m2 LVOT Diam: 2.40 3.0+(-)1.3 cm 2D Systolic Function EF 4C: 48.00 >55% EF 2C: 70.90 >55% EF BiP: 60.20 >55% Mitral Valve MV Pk E: 0.48 MV PK A: 0.91 MV Decel Time: 403.00 E/A: 0.50 E'Lateral: 5.98 E'Medial: 3.92 E/E' Med: 12.20 E/E' Lat: 8.00 Aortic Valve AoV Pk Navid: 1.43 AoV Mn Navid: 1.09 AoV VTI: 0.28 AoV Pk Grad: 8.00 Aov Mn Grad: 5.00 LIZZ Cont.VTI: 3.30 LVOT LVOT Pk Navid: 0.97 LVOT Mn Navid: 0.65 LVOT VTI: 0.20 LVOT Pk Grad: 4.00 LVOT Mn Grad: 2.00 LVOT Diam: 2.40 LVOT Area: 4.52 Diastolic Function MV Pk E: 0.48 MV Pk A: 0.91 E/A: 0.50 E'Medial: 3.92 E/E' Med: 12.20 E' Laterial: 5.98 E/E' Lat: 8.00 Right Ventricle TAPSE (mm): 18.00 TVS' Navid: 9.60 Tricuspid Valve TR Pk Navid: 2.55 TR Pk Grad: 26.00 RA Press: 8.00 RVSP: 34.00 Great Vessels Aorta Ao Root-2D: 3.70 2.0-3.7 cm Ao Asc: 3.90 2.1-3.4 cm Ao Arch: 3.50 Updated in Other Vendor System with Status of Final Fly Martini MD electronically signed on 04/17/2021 3:22:20 PM with status of Final
== END ==
LOC: HO.CARD 07:03
PROVIDERS: Family Medicine; Visit Provider Internal Medicine Cardiovascular Disease
DX: R06.02 Shortness of breath (principal); I48.0 Paroxysmal atrial fibrillation
CPT/HCPCS: 36415; 85610; 93306

== ENCOUNTER → 2021-04-21 14:52 | Outpatient (BNVA) | payer MEDICARE, SELFPAY | PROVIDERS: PCP Family Medicine; Referring Provider Family Medicine; Visit Provider Internal Medicine Cardiovascular Disease | DX: I48.92 Unspecified atrial flutter (principal); Z79.01 Long term (current) use of anticoagulants; Z45.018 Encounter for adjustment and management of other part of cardiac pacemaker | CPT/HCPCS: 99212 ==

== ENCOUNTER 2021-04-23 08:17 | Outpatient (REF) | payer MEDICARE, SELFPAY ==
[2021-04-23 10:00] LABS: INTERNATIONAL NORM RATIO 1.7 (0.9-1.1); Prothrombin Time 19.5 SEC (9.9-13.0)
== END 2021-04-23 08:18 | disposition home or self-care (01) ==
LOC: HO.LHD 08:17
PROVIDERS: Visit Provider Family Medicine
DX: I48.0 Paroxysmal atrial fibrillation (principal)
CPT/HCPCS: 36415; 85610

== ENCOUNTER 2021-05-07 05:00 | Outpatient (REF) | payer MEDICARE, SELFPAY ==
[2021-05-07 13:13] LABS: INTERNATIONAL NORM RATIO 1.7 (0.9-1.1); Prothrombin Time 19.2 SEC (9.9-13.0)
== END 2021-05-07 05:01 ==
LOC: HO.LHD 05:00
PROVIDERS: Visit Provider Family Medicine
DX: I48.0 Paroxysmal atrial fibrillation (principal)
CPT/HCPCS: 36415; 85610

== ENCOUNTER 2021-05-21 10:54 | Outpatient (REF) | payer MEDICARE, SELFPAY ==
[2021-05-21 10:10] LABS: INTERNATIONAL NORM RATIO 1.7 (0.9-1.1); Prothrombin Time 19.6 SEC (9.9-13.0)
== END 2021-05-21 10:55 | disposition home or self-care (01) ==
LOC: HO.LDS 10:54
PROVIDERS: Visit Provider Family Medicine
DX: I48.0 Paroxysmal atrial fibrillation (principal)
CPT/HCPCS: 36415; 85610

== ENCOUNTER 2021-06-04 11:47 | Outpatient (REF) | payer MEDICARE, SELFPAY ==
[2021-06-04 11:38] LABS: INTERNATIONAL NORM RATIO 1.5 (0.9-1.1); Prothrombin Time 16.8 SEC (9.9-13.0)
== END 2021-06-04 11:48 | disposition home or self-care (01) ==
LOC: HO.LHD 11:47
PROVIDERS: Family Medicine; Visit Provider Internal Medicine
DX: I48.0 Paroxysmal atrial fibrillation (principal)
CPT/HCPCS: 36415; 85610

== ENCOUNTER 2021-06-18 06:54 | Outpatient (REF) | payer MEDICARE, SELFPAY ==
[2021-06-18 10:24] LABS: Prothrombin Time 23.5 SEC (9.9-13.0)
== END 2021-06-18 06:55 | disposition home or self-care (01) ==
LOC: HO.LHD 06:54
PROVIDERS: Visit Provider Family Medicine
DX: I48.0 Paroxysmal atrial fibrillation (principal)
CPT/HCPCS: 36415; 85610

== ENCOUNTER 2021-07-02 05:47 | Outpatient (REF) | payer MEDICARE, SELFPAY ==
[2021-07-02 11:37] LABS: INTERNATIONAL NORM RATIO 1.5 (0.9-1.1); Prothrombin Time 16.6 SEC (9.9-13.0)
== END 2021-07-02 05:48 | disposition home or self-care (01) ==
LOC: HO.LHD 05:47
PROVIDERS: Visit Provider Family Medicine
DX: I48.0 Paroxysmal atrial fibrillation (principal)
CPT/HCPCS: 36415; 85610

== ENCOUNTER 2021-07-16 13:19 | Outpatient (REF) | payer MEDICARE, SELFPAY ==
[2021-07-16 11:04] LABS: INTERNATIONAL NORM RATIO 1.6 (0.9-1.1); Prothrombin Time 18.4 SEC (9.9-13.0)
== END 2021-07-16 13:20 | disposition home or self-care (01) ==
LOC: HO.LHD 13:19
PROVIDERS: Visit Provider Family Medicine
DX: I48.0 Paroxysmal atrial fibrillation (principal)
CPT/HCPCS: 36415; 85610

== ENCOUNTER 2021-07-30 12:03 | Outpatient (REF) | payer MEDICARE, SELFPAY ==
[2021-07-30 10:43] LABS: Prothrombin Time 22.7 SEC (9.9-13.0)
== END 2021-07-30 12:04 | disposition home or self-care (01) ==
LOC: HO.LHD 12:03
PROVIDERS: Visit Provider Family Medicine
DX: I48.0 Paroxysmal atrial fibrillation (principal)
CPT/HCPCS: 36415; 85610

== ENCOUNTER 2021-08-13 06:59 | Outpatient (REF) | payer MEDICARE, SELFPAY ==
[2021-08-13 11:37] LABS: INTERNATIONAL NORM RATIO 1.7 (0.9-1.1); Prothrombin Time 19.4 SEC (9.9-13.0)
== END 2021-08-13 07:00 | disposition home or self-care (01) ==
LOC: HO.LHD 06:59
PROVIDERS: Visit Provider Family Medicine
DX: I48.0 Paroxysmal atrial fibrillation (principal)
CPT/HCPCS: 36415; 85610

== ENCOUNTER 2021-08-27 12:41 | Outpatient (REF) | payer MEDICARE, SELFPAY ==
[2021-08-27 11:47] LABS: INTERNATIONAL NORM RATIO 1.7 (0.9-1.1); Prothrombin Time 19.2 SEC (9.9-13.0)
== END 2021-08-27 12:42 | disposition home or self-care (01) ==
LOC: HO.LHD 12:41
PROVIDERS: Visit Provider Family Medicine
DX: I48.0 Paroxysmal atrial fibrillation (principal)
CPT/HCPCS: 36415; 85610

== ENCOUNTER 2021-09-10 11:12 | Outpatient (REF) | payer MEDICARE, SELFPAY ==
[2021-09-10 11:56] LABS: INTERNATIONAL NORM RATIO 1.6 (0.9-1.1); Prothrombin Time 18.6 SEC (9.9-13.0)
== END 2021-09-10 11:13 | disposition home or self-care (01) ==
LOC: HO.LHD 11:12
PROVIDERS: Visit Provider Family Medicine
DX: I48.0 Paroxysmal atrial fibrillation (principal)
CPT/HCPCS: 36415; 85610

== ENCOUNTER 2021-09-24 14:14 | Outpatient (REF) | payer MEDICARE, SELFPAY ==
[2021-09-24 10:24] LABS: INTERNATIONAL NORM RATIO 2.7 (0.9-1.1); Prothrombin Time 30.9 SEC (9.9-13.0)
== END 2021-09-24 14:15 | disposition home or self-care (01) ==
LOC: HO.LHD 14:14
PROVIDERS: Visit Provider Family Medicine
DX: I48.0 Paroxysmal atrial fibrillation (principal)
CPT/HCPCS: 36415; 85610

== ENCOUNTER 2021-10-01 10:22 | Outpatient (REF) | payer MEDICARE, SELFPAY ==
[2021-10-01 09:38] LABS: INTERNATIONAL NORM RATIO 2.7 (0.9-1.1); Prothrombin Time 31.2 SEC (9.9-13.0)
== END 2021-10-01 10:23 | disposition home or self-care (01) ==
LOC: HO.LHD 10:22
PROVIDERS: Visit Provider Family Medicine
DX: I48.0 Paroxysmal atrial fibrillation (principal)
CPT/HCPCS: 36415; 85610

== ENCOUNTER 2021-10-15 13:23 | Outpatient (REF) | payer MEDICARE, SELFPAY ==
[2021-10-15 11:08] LABS: Prothrombin Time 22.6 SEC (9.9-13.0)
== END 2021-10-15 13:24 | disposition home or self-care (01) ==
LOC: HO.LHD 13:23
PROVIDERS: Visit Provider Family Medicine
DX: I48.0 Paroxysmal atrial fibrillation (principal)
CPT/HCPCS: 36415; 85610

== ENCOUNTER → 2021-10-20 15:18 | Outpatient (BNVA) | payer MEDICARE, SELFPAY | PROVIDERS: PCP Family Medicine; Visit Provider Internal Medicine Cardiovascular Disease | DX: Z45.018 Encounter for adjustment and management of other part of cardiac pacemaker (principal); I48.92 Unspecified atrial flutter | CPT/HCPCS: 99212 ==

== ENCOUNTER 2021-10-29 11:16 | Outpatient (REF) | payer MEDICARE, SELFPAY ==
[2021-10-29 12:03] LABS: INTERNATIONAL NORM RATIO 2.1 (0.9-1.1); Prothrombin Time 23.8 SEC (9.9-13.0)
== END 2021-10-29 11:17 | disposition home or self-care (01) ==
LOC: HO.LHD 11:16
PROVIDERS: Visit Provider Family Medicine
DX: I48.0 Paroxysmal atrial fibrillation (principal)
CPT/HCPCS: 36415; 85610

== ENCOUNTER 2021-11-11 08:54 | Outpatient (REF) | payer MEDICARE, SELFPAY ==
[2021-11-11 12:49] LABS: MANUAL DIFF FLAG NO
[2021-11-11 12:56] LABS: INTERNATIONAL NORM RATIO 1.2 (0.9-1.1); Prothrombin Time 13.7 SEC (9.9-13.0)
[2021-11-11 13:01] LABS: Eosinophils Absolute Auto 0.1 X10*3/uL (0.0-0.4); Eosinophils Percent Auto 1.6 % (0-4); Hematocrit 43.7 % (42.0-52.0); Hemoglobin 13.2 g/dl (14.0-18.0); Imm Gran Abs Auto 0.04 X10*3/uL (0.00-0.03); Imm Gran Pct Auto 0.4 % (0.0-0.4); Lymphocytes Absolute Auto 1.1 X10*3/uL (1.2-4.9); Lymphocytes Percent Auto 12.6 % (20-40); Mean Corpuscular HGB Conc 30.2 g/dl (31.0-36.0); Mean Corpuscular Hemoglobin 30.5 pg (27.0-33.0); Mean Corpuscular Volume 100.9 fL (80.0-98.0); Mean Platelet Volume 10.9 fL (9.4-12.4); Monocytes Absolute Auto 0.4 X10*3/uL (0.1-1.2); Monocytes Percent Auto 4.3 % (2-11); Neutrophils Absolute Auto 7.3 x10*3/uL (2.0-8.3); Neutrophils Percent Auto 81.1 % (45-73); Platelet Count 67 X10*3/uL (160-400); Red Blood Count 4.33 X10*6/uL (4.60-5.80); Red Cell Distribution Width 14.3 % (11.0-16.0)
[2021-11-11 13:21] LABS: Alanine Aminotransferase 8 U/L (0-40); Albumin Level 3.5 g/dL (3.5-5.0); Alkaline Phosphatase 83 U/L (39-117); Anion Gap 12 (12-20); Aspartate Amino Transferase 10 U/L (5-37); Bilirubin Total 0.5 mg/dL (0.0-1.0); Blood Urea Nitrogen 15 mg/dL (9-16); Calcium 8.6 mg/dL (8.4-10.2); Carbon Dioxide 26 mmol/L (22-29); Chloride 110 mmol/L (96-108); Estimated Glomerular Filt Rate 55; Glucose Random 114 mg/dL (60-115); Sodium 144 mmol/L (135-145); Total Protein 6.5 g/dL (6.5-8.0)
[2021-11-11 13:41] LABS: Free T4 (Free Thyroxine) 1.08 ng/dL (0.71-1.85)
[2021-11-11 13:47] LABS: Lithium 0.67 mmol/L (0.60-1.20)
== END 2021-11-11 08:55 | disposition home or self-care (01) ==
LOC: HO.LHD 08:54
PROVIDERS: Visit Provider Family Medicine
DX: I48.0 Paroxysmal atrial fibrillation (principal); I10 Essential (primary) hypertension; D64.9 Anemia, unspecified; E03.9 Hypothyroidism, unspecified; Z79.899 Other long term (current) drug therapy
CPT/HCPCS: 36415; 80053; 80178; 84439; 85025; 85610

== ENCOUNTER 2021-11-16 | Outpatient (REF) | payer MEDICARE, SELFPAY ==
[2021-11-16 12:25] LABS: INTERNATIONAL NORM RATIO 1.2 (0.9-1.1); Prothrombin Time 13.5 SEC (9.9-13.0)
== END 2021-11-16 00:01 ==
LOC: HO.LHD
PROVIDERS: Visit Provider Family Medicine
DX: I48.0 Paroxysmal atrial fibrillation (principal)
CPT/HCPCS: 36415; 85610

== ENCOUNTER 2021-11-23 11:30 | Outpatient (REF) | payer MEDICARE, SELFPAY ==
[2021-11-23 10:47] LABS: INTERNATIONAL NORM RATIO 1.5 (0.9-1.1); Prothrombin Time 16.9 SEC (9.9-13.0)
== END 2021-11-23 11:31 | disposition home or self-care (01) ==
LOC: HO.LHD 11:30
PROVIDERS: Visit Provider Family Medicine
DX: I48.0 Paroxysmal atrial fibrillation (principal)
CPT/HCPCS: 36415; 85610

== ENCOUNTER 2021-11-30 09:04 | Outpatient (REF) | payer MEDICARE, SELFPAY ==
[2021-11-30 13:06] LABS: INTERNATIONAL NORM RATIO 2.7 (0.9-1.1); Prothrombin Time 31.9 SEC (9.9-13.0)
== END 2021-11-30 09:05 | disposition home or self-care (01) ==
LOC: HO.LHD 09:04
PROVIDERS: Visit Provider Family Medicine
DX: I48.0 Paroxysmal atrial fibrillation (principal)
CPT/HCPCS: 36415; 85610

== ENCOUNTER 2021-12-10 06:56 | Outpatient (REF) | payer MEDICARE, SELFPAY ==
[2021-12-10 11:05] LABS: INTERNATIONAL NORM RATIO 1.8 (0.9-1.1); Prothrombin Time 21.1 SEC (9.9-13.0)
== END 2021-12-10 06:57 | disposition home or self-care (01) ==
LOC: HO.LHD 06:56
PROVIDERS: Visit Provider Family Medicine
DX: I48.0 Paroxysmal atrial fibrillation (principal)
CPT/HCPCS: 36415; 85610

== ENCOUNTER 2021-12-24 | Outpatient (REF) | payer MEDICARE, SELFPAY ==
[2021-12-24 10:51] LABS: INTERNATIONAL NORM RATIO 2.6 (0.9-1.1); Prothrombin Time 29.9 SEC (9.9-13.0)
== END 2021-12-24 00:01 | disposition home or self-care (01) ==
LOC: HO.LHD
PROVIDERS: Visit Provider Family Medicine
DX: I48.0 Paroxysmal atrial fibrillation (principal)
CPT/HCPCS: 36415; 85610

== ENCOUNTER 2022-01-07 13:16 | Outpatient (REF) | payer MEDICARE, SELFPAY ==
[2022-01-07 11:56] LABS: Prothrombin Time 65.9 SEC (9.9-13.0)
[2022-01-07 13:09] LABS: INTERNATIONAL NORM RATIO 5.6 (0.9-1.1)
== END 2022-01-07 13:17 | disposition home or self-care (01) ==
LOC: HO.LHD 13:16
PROVIDERS: Visit Provider Family Medicine
DX: I48.0 Paroxysmal atrial fibrillation (principal)
CPT/HCPCS: 36415; 85610

== ENCOUNTER 2022-01-07 15:20 | Emergency (ER) | payer MEDICARE, SELFPAY ==
--- NOTE | ~2022-01-07 | XR_ITS ---
EXAMINATION: XR CHEST CLINICAL INFORMATION: Cough, shortness of breath COMPARISON: Chest x-ray 03/17/2021 TECHNIQUE: Frontal view of the chest was obtained. 5:22 PM FINDINGS: No change position of pacemaker leads in right atrium and right ventricle. Cardiac and mediastinal contours unchanged. No acute abnormality. There is no pulmonary vascular congestion. No focal consolidation, pleural effusion or pneumothorax. Degenerative spur of the left humeral head and glenoid at the inferior glenohumeral joint. Joint narrowing of the right glenohumeral joint. Mild degenerative spondylosis of dorsal spine. XR/XR chest 1V IMPRESSION: No acute abnormality of chest.
[2022-01-07 16:35] VITALS: BP 96/69; PULSE 100; RESP 16; TEMP 35.7; O2SAT 100; BMI 35.4
--- NOTE | 2022-01-07 16:44 | ECG_ITS ---
Test Reason : WEAKNESS Blood Pressure : / mmHG Vent. Rate : 101 BPM Atrial Rate : 104 BPM P-R Int : 000 ms QRS Dur : 184 ms QT Int : 474 ms P-R-T Axes : 000 -32 110 degrees QTc Int : 614 ms Ventricular-paced rhythm Underlying atrial rhythm is undetermined,? atrial flutter Abnormal ECG When compared with ECG of 17-MAR-2021 10:14, Vent. rate has increased BY 40 BPM Referred By: Generic ED Physician Electronically Signed By:FAYE HIGGINS MD
[2022-01-07 17:13] LABS: MANUAL DIFF FLAG NO
[2022-01-07 17:17] LABS: Basophils Percent Auto 0.1 % (0-2); Eosinophils Absolute Auto 0.1 X10*3/uL (0.0-0.4); Eosinophils Percent Auto 1.3 % (0-4); Hematocrit 37.3 % (42.0-52.0); Hemoglobin 11.3 g/dl (14.0-18.0); Imm Gran Abs Auto 0.02 X10*3/uL (0.00-0.03); Imm Gran Pct Auto 0.2 % (0.0-0.4); Lymphocytes Absolute Auto 0.8 X10*3/uL (1.2-4.9); Lymphocytes Percent Auto 8.7 % (20-40); Mean Corpuscular HGB Conc 30.3 g/dl (31.0-36.0); Mean Corpuscular Hemoglobin 29.5 pg (27.0-33.0); Mean Corpuscular Volume 97.4 fL (80.0-98.0); Mean Platelet Volume 11.9 fL (9.4-12.4); Monocytes Absolute Auto 0.5 X10*3/uL (0.1-1.2); Monocytes Percent Auto 5.1 % (2-11); Neutrophils Absolute Auto 8.1 x10*3/uL (2.0-8.3); Neutrophils Percent Auto 84.6 % (45-73); Red Blood Count 3.83 X10*6/uL (4.60-5.80); Red Cell Distribution Width 14.3 % (11.0-16.0); White Blood Count 9.5 X10*3/uL (4.8-10.8)
[2022-01-07 17:19] LABS: Platelet Count 62 X10*3/uL (160-400)
[2022-01-07 17:33] LABS: Troponin-I High Sensitivity 5.8 ng/L (<3.5-35.0)
[2022-01-07 17:34] LABS: B Type Natriuretic Peptide 1045 pg/mL (<100)
[2022-01-07 17:36] LABS: COVID-19 Test Negative (Negative)
[2022-01-07 17:36] LABS: Alanine Aminotransferase < 6 U/L (0-40); Albumin Level 3.7 g/dL (3.5-5.0); Alkaline Phosphatase 90 U/L (39-117); Anion Gap 11 (12-20); Aspartate Amino Transferase 7 U/L (5-37); Bilirubin Direct 0.6 mg/dL (0.0-0.5); Bilirubin Total 1.3 mg/dL (0.0-1.0); Blood Urea Nitrogen 17 mg/dL (9-16); Calcium 8.9 mg/dL (8.4-10.2); Carbon Dioxide 25 mmol/L (22-29); Chloride 108 mmol/L (96-108); Creatinine Clr Calc Pharmacy 56.1; Estimated Glomerular Filt Rate 44; Glucose Random 109 mg/dL (60-115); Potassium 4.6 mmol/L (3.3-5.1); Sodium 139 mmol/L (135-145); Total Protein 6.7 g/dL (6.5-8.0)
[2022-01-07 17:59] LABS: IDNOW Serial# 16C4AD1C; Influenza A Negative (Negative); Influenza B2 Negative (Negative)
[2022-01-07 18:07] LABS: INTERNATIONAL NORM RATIO 5.6 (0.9-1.1)
--- NOTE | 2022-01-07 18:13 | PC.NURSE ---
CRITICAL INR 5.6 DR. HOWARD AWARE.
== END 2022-01-07 20:55 | disposition left against medical advice (07) ==
PROVIDERS: Emergency Provider Emergency Medicine; PCP Family Medicine
DX: R06.02 Shortness of breath (principal); R26.2 Difficulty in walking, not elsewhere classified; Z20.822 Contact with and (suspected) exposure to COVID-19
CPT/HCPCS: 36415; 71045; 80048; 80076; 83880; 84484; 85025; 85610; 87502; 87635; 93005; 99281; 99283

== ENCOUNTER 2022-01-19 14:12 | Outpatient (REF) | payer MEDICARE, SELFPAY ==
[2022-01-19 11:57] LABS: Prothrombin Time 46.5 SEC (9.9-13.0)
== END 2022-01-19 14:13 | disposition home or self-care (01) ==
LOC: HO.LHD 14:12
PROVIDERS: Visit Provider Internal Medicine
DX: I48.0 Paroxysmal atrial fibrillation (principal)
CPT/HCPCS: 36415; 85610

== ENCOUNTER 2022-01-22 10:02 | Inpatient (IN) | payer MEDICARE, SELFPAY ==
[2022-01-22] VITALS (13 sets, daily range): BP systolic 88–122; BP diastolic 58–82; PULSE 93–104; RESP 15–22; TEMP 36.5–36.8; O2SAT 93–100; BMI 32.6
--- NOTE | ~2022-01-22 | CT_ITS ---
EXAMINATION: CT CHEST WITHOUT IV CONTRAST CT ABDOMEN AND PELVIS WITHOUT IV CONTRAST CLINICAL INFORMATION: Left flank ecchymosis. Status post fall. COMPARISON: CXR from 01/22/2022 TECHNIQUE: Noncontrast multidetector CT imaging examination of the chest, abdomen and pelvis was performed. Axial images are displayed at 0.6 mm and 5 mm slice thickness. Coronal and sagittal reformatted images were generated at the technologist's workstation and submitted for review. This CT examination was performed using dose optimization techniques as appropriate, variously including the following: *Automated exposure control *Adjustment of mA and/or kV according to patient size (this includes techniques or standardized protocols for targeted exams where dose is matched to indication/reason for exam; i.e. extremities or head) *Use of iterative reconstruction technique DLP: 1460 mGy-cm FINDINGS: CHEST - LUNGS AND PLEURA: Mild centrilobular emphysema. Bronchial hicks appear to be diffusely thickened. Patchy groundglass opacities are predominantly centrally distributed in both lungs, particularly upper lobes. Also, there is smooth thickening of interlobular septa. Findings are consistent with pulmonary edema. 0.6 cm noncalcified subpleural nodule at the lateral right lung apex (image 73, series 7). Several micronodules are detected in the right lung, as well. Small pleural effusions. No pneumothorax. MEDIASTINUM/LOWER NECK: Left prepectoral region cardiac pacemaker with intact transvenous leads extending to the right atrium and apex of right ventricle. Cardiomegaly. No pericardial effusion. Atherosclerotic calcification of coronary arteries. Mild atherosclerosis of thoracic aorta. The mildly dilated ascending thoracic aorta measures up to 4 cm AP diameter. The esophagus has normal wall thickness. No mediastinal mass. Thyroid gland is grossly unremarkable. LYMPHATICS: No pathologic sized axillary, hilar or mediastinal lymph nodes. CHEST WALL/BONES: The patchy opacity in subcutaneous tissues tissues anterior to the left pectoralis major muscle could represent mild hemorrhage. Correlate for bruising in this region. No sternal fracture. No fracture or malalignment of the degenerated thoracic spine. Severe osteoarthritis of glenohumeral joints. Moderate osteoarthritis of sternoclavicular joints. ABDOMEN AND PELVIS - HEPATOBILIARY: Liver has normal size, contour and attenuation. Gallbladder is unremarkable. No intrahepatic or extrahepatic bile duct dilatation. PANCREAS: No edema, mass or pancreatic ductal dilatation. SPLEEN: Normal. ADRENAL GLANDS: Normal. KIDNEYS AND URETERS: Mild bilateral renal cortical atrophy. Mild nonspecific bilateral perinephric edema. No nephrolithiasis or hydronephrosis. 2.5 cm simple cyst of the left kidney. No imaging follow-up is recommended for simple cysts. A small, 0.9 cm focus of the posterior right lower pole appears to represent a cyst. No suspicious renal lesion detected on these noncontrast images. BOWEL AND PERITONEUM: No dilated bowel loops. There appears to be a small lipoma of the third portion of the duodenum. Diverticula of the colon without diverticulitis. No abdominal free fluid or pneumoperitoneum. ABDOMINAL WALL: Unremarkable. VESSELS: Atherosclerotic calcification of the abdominal aorta without aneurysm. No retroperitoneal hematoma. LYMPH NODES: No pathologic sized lymph nodes in the abdomen or pelvis. No inguinal lymphadenopathy. BLADDER AND PELVIC VISCERA: Urinary bladder is grossly normal. Prostate gland is unremarkable. No pelvic free fluid. MUSCULOSKELETAL: Lumbar vertebra have well preserved height and alignment. Degenerative loss of disc space, vacuum disc phenomenon and osteophyte formation at L4-5 and L5-S1. Multilevel facet arthropathy lumbar spine. Mild osteoarthritis of the hips. No evidence of proximal femoral fracture or acetabular injury. CT/CT abdomen pelvis wo con IMPRESSION: * A focal area of patchy opacity in subcutaneous tissues in the left prepectoral region could represent minor hemorrhage from recent trauma. Query if there is any bruising of the left chest wall. No evidence of rib fracture or pneumothorax. * Mild pulmonary emphysema and several micronodules in the right lung. Also, there is a 0.6 cm nodule of the lateral right lung apex. Based on use of Fleischner Society guidelines, recommend chest CT follow-up in the next 3-6 months. * Cardiomegaly, pulmonary edema and small pleural effusions. * No acute skeletal findings.
--- NOTE | ~2022-01-22 | CT_ITS ---
EXAMINATION: CT HEAD WITHOUT CONTRAST CLINICAL INFORMATION: Unresponsive. Evaluate for stroke. COMPARISON: None TECHNIQUE: Contiguous axial imaging was performed from the skull base to vertex without intravenous administration of contrast. This CT examination was performed using dose optimization techniques as appropriate, variously including the following: *Automated exposure control *Adjustment of mA and/or kV according to patient size (this includes techniques or standardized protocols for targeted exams where dose is matched to indication/reason for exam; i.e. extremities or head) *Use of iterative reconstruction technique DLP: 989 mGy-cm FINDINGS: There is no evidence of acute intracranial hemorrhage or territorial infarction. No abnormal mass effect or midline shift is seen. Diop to white matter differentiation is well preserved. No extra-axial fluid collections are identified. Both lateral ventricles are symmetrical in size enlarged. There is diffuse periventricular hypodensity in both cerebral hemispheres without mass effect. The osseous structures and soft tissues are normal. The mastoid air cells and visualized portions of the paranasal sinuses are well aerated. There is an endotracheal tube in the mid phalanx. CT/CT head/brain wo con IMPRESSION: No acute intracranial process. Mild cerebral volume loss with chronic chronic small vessel ischemic changes. No major change compared to previous study 01/22/2022
--- NOTE | ~2022-01-22 | CT_ITS ---
EXAMINATION: CT HEAD W/O IV CONTRAST CT CERVICAL SPINE W/O IV CONTRAST CLINICAL INFORMATION: History of fall. COMPARISON: Brain MRI from 07/10/2018. TECHNIQUE: Head - Contiguous axial imaging of the head was performed from the skull base to the vertex without the administration of intravenous contrast, and axial images are reconstructed at 2 mm and 5 mm slice thickness. Cervical spine - A volumetric, helical CT acquisition of the cervical spine was obtained without contrast; in addition to the standard set of axial images, multiplanar reformatted images were provided in the coronal and sagittal imaging planes. This CT examination was performed using dose optimization techniques as appropriate, variously including the following: *Automated exposure control *Adjustment of mA and/or kV according to patient size (this includes techniques or standardized protocols for targeted exams where dose is matched to indication/reason for exam; i.e. extremities or head) *Use of iterative reconstruction technique DLP: 1556 mGy-cm (total) FINDINGS: HEAD: No intracranial hemorrhage, extra-axial fluid collection, focal mass effect or midline shift. Atherosclerotic calcification of cavernous carotid arteries. Chronic, mild small vessel ischemic changes of supratentorial white matter. The buck-white matter differentiation is maintained. No evidence of an acute major vascular territory infarction. Chronic moderate parenchymal volume loss with commensurate prominence of the ventricles and sulci; no hydrocephalus. No acute findings within the posterior fossa. The calvarium is intact. The visualized paranasal sinuses, mastoid air cells and middle ear cavities are well aerated. No acute intraorbital pathology. CERVICAL SPINE: The craniocervical junction is normal. The cervical vertebra are normal in height and alignment. No acute fractures or prevertebral soft tissue swelling. There is degenerative subarticular sclerosis and osseous spurring at the atlantodental articulation. Multilevel degenerative disc disease as manifest by loss of disc height, endplate irregularities, endplate sclerosis and osteophyte formation C3-C4, C4-C5, C5-C6 and C6-C7. Multilevel facet osteoarthritis and uncovertebral joint hypertrophy resulting in varying degrees of multilevel bilateral neural foraminal stenosis. No focal fluid collection or hematoma in the neck. Thyroid gland is grossly unremarkable but not optimally evaluated due to motion degradation of images through the lower neck. There is smooth interlobular septal thickening and groundglass opacity at the visualized lung apices. This could represent cardiogenic edema. No pneumothorax. CT/CT cervical spine wo con IMPRESSION: * No intracranial hemorrhage or other acute intracranial pathology. * No fracture or traumatic subluxation in the degenerated cervical spine. * The finding of interlobular septal thickening and groundglass opacity at the lung apices is probably from cardiogenic edema.
--- NOTE | ~2022-01-22 | XR_ITS ---
EXAMINATION: XR CHEST CLINICAL INFORMATION: Orogastric tube placement COMPARISON: January 27, 2022 TECHNIQUE: AP portable view of the chest was obtained. FINDINGS: Endotracheal tube tip is approximately 5 cm above the sonia. Enteric catheter is seen traversing below the diaphragm with weighted bulb and the region of the stomach. Right subclavian central venous catheter seen with its tip within the distal superior vena cava. Dual-chamber pacemaker in place. There are regions of airspace disease seen most prominently within the retrocardiac area as well as some streaky disease seen within the perihilar regions. This appears somewhat improved compared to previous study of January 27, 2022 and may represent some improvement in pulmonary edema. XR/XR chest 1V IMPRESSION: Enteric catheter seen traversing below the hemidiaphragms. Continued airspace disease but improved from previous study and may represent some improving pulmonary edema.
--- NOTE | ~2022-01-22 | XR_ITS ---
EXAMINATION: XR CHEST CLINICAL INFORMATION: Weakness. Fall. COMPARISON: Previous chest x-ray most recent December 2021 TECHNIQUE: Frontal view of the chest was obtained. FINDINGS: The cardiac silhouette is enlarged but stable. There is a left subclavian dual chamber pacemaker that appears unchanged. The lung volumes are low. There is crowding of the central bronchovascular markings. There is no pleural effusion or pneumothorax area there degenerative changes of the spine and shoulders. XR/XR chest 1V IMPRESSION: No evidence for acute disease in the chest. Low lung volumes and crowding of the central bronchovascular markings.
--- NOTE | ~2022-01-22 | XR_ITS ---
EXAMINATION: XR CHEST CLINICAL INFORMATION: Line placement and orogastric tube placement. COMPARISON: Portable chest 01/22/2022, 01/07/2022 TECHNIQUE: Portable supine AP view of the chest is performed at 1104 hours. FINDINGS: ET tube is 3.3 cm above sonia. Orogastric tube is in the abdomen with distal end extending into the distal stomach beyond field of view. There is a right subclavian central venous line with tip at mid superior vena cava. Bipolar pacemaker again seen. There is no basilar pneumothorax on this supine exam. Cardiopericardial silhouette is within limits of normal size. Vascularity within normal. There is patchy airspace opacities right suprahilar region, new from prior study. The costophrenic sulci are clear. XR/XR chest 1V IMPRESSION: -ET tubes 3.3 cm above sonia. -Orogastric tube below diaphragm overlying stomach. -Right central venous line tip mid SVC. -Right perihilar patchy airspace opacities, new from 01/22/2022. No effusion.
--- NOTE | ~2022-01-22 | XR_ITS ---
EXAMINATION: PORTABLE CHEST 1 VIEW CLINICAL INFORMATION: s/p cardiac arrest and CPR, w new hypoxemia . COMPARISON: Study earlier today. TECHNIQUE: Portable frontal view of the chest was obtained. FINDINGS: Endotracheal tube tip approximately 4 cm above the sonia. Right subclavian vein central venous catheter tip overlying the mid superior vena cava. Dobbhoff tube below level the diaphragm. Lungs are hypoexpanded with central vascular prominence and airspace disease with a bat wing configuration suggesting pulmonary edema more prominent than earlier today. Cardiac silhouette within normal limits for size for this technique. Dual-lead pacemaker seen with lead tips overlying expected right atrium and right ventricle. XR/XR chest 1V IMPRESSION: Tubes and lines as described. Increased batwing airspace disease in the perihilar distribution concerning for worsened pulmonary edema. Aspiration or infectious etiology considered less likely
--- NOTE | 2022-01-22 10:12 | ED_ITS ---
HPI - Weakness General Chief complaint: Weakness Stated complaint: GENERAL WEAKNESS PER EMS Time Seen by Provider: 01/22/22 10:12 Source: patient Mode of arrival: EMS Limitations: other (poor historian) History of Present Illness HPI Narrative: called by PCP - worsening weakness, FTT, not taking his medications for undisclosed past few weeks including lithium and coumadin he is hallucinating. He has been falling at home. He denies injury to me but admits he is not taking his medications. He has a flat affect and is withdrawn. MD Complaint: generalized weakness (not taking medications, falling) Onset (ago): week(s) (few) Duration: constant Location: generalized Severity: severe Quality: dull Relieving factors: rest Exacerbating factors: exertion Context: other (not compliant with medications - decompensated) Associated symptoms: loss of appetite and other (malaise, falls) Related Data Home Medications Medication Instructions Recorded Confirmed bupropion HCl 300 mg 24 hr tablet, 300 mg PO QAM 02/23/21 01/22/22 extended release gabapentin 300 mg capsule 600 mg PO BEDTIME 02/23/21 01/22/22 levothyroxine 50 mcg capsule 50 mcg PO DAILY 02/23/21 01/22/22 lithium carbonate 300 mg capsule 300 mg PO BID 02/23/21 01/22/22 warfarin 1 mg tablet 1 mg PO Q48H 02/23/21 01/22/22 warfarin 5 mg tablet 5 mg PO DAILY 02/23/21 01/22/22 carbidopa 25 mg-levodopa 100 mg 1 tab PO QID 10/20/21 01/22/22 tablet metoprolol succinate 50 mg 50 mg PO DAILY 10/20/21 01/22/22 tablet,extended release 24 hr albuterol sulfate 90 mcg/actuation 2 puff INHALATION Q4H PRN 01/22/22 01/22/22 aerosol inhaler atorvastatin 20 mg tablet 20 mg PO BEDTIME 01/22/22 01/22/22 folic acid 1 mg tablet 1 tab PO DAILY 01/22/22 01/22/22 Allergies Allergy/AdvReac Type Severity Reaction Status Date / Time methylphenidate [Ritalin] Allergy Unknown Verified 04/17/20 00:00 ragweed pollen [RAGWEED] Allergy Unknown SNEEZE Unverified 05/15/20 15:13 tizanidine [Zanaflex] Allergy Unknown Verified 04/17/20 00:00 Review of Systems Review of Systems: Constitutional : No Fever, No Chills, pos Fatigue, pos Malaise ENT/Mouth : No sore throat, No Rhinorrhea Eyes: No Eye Pain, No Swelling, No Redness Cardiovascular : No Chest Pain, No SOB Respiratory :pos Cough, No Sputum, No Wheezing Gastrointestinal : No Nausea, No Vomiting, No Diarrhea, No abdominal Pain Genitourinary : No Dysuria, No Urinary Frequency, No Hematuria, Musculoskeletal : No joint pain, No Myalgias, No Joint Swelling Skin : No Skin Lesions, No rash Neuro : pos Weakness, No Numbness, No Dizziness, No Headache Psych : No Anxiety/Panic, pos Depression, pos hallucinations Heme/Lymph: No Bruising, No Bleeding,No Lymphadenopathy Endocrine : No Polyuria, No Polydipsia All other systems reviewed and are negative [facility] Past Medical History Source: old records reviewed Medical History Asthma Cardiac pacemaker in situ DJD (degenerative joint disease) High cholesterol HTN (hypertension) Hypothyroidism IBS (irritable bowel syndrome) Parkinsons Paroxysmal atrial flutter Peripheral neuropathy Psychiatric diagnosis Sick sinus syndrome Social History Social History Alcohol intake: current Alcohol intake frequency: a few times a week Alcohol type: beer Patient Tobacco Use Status: Former Tobacco user Advance Directives: Yes Advance Directives on File: Yes Advance Directives Date on File: 03/17/21 Physical Exam Vital Signs: Vital Signs: Last Vital Signs Temp 97.7 F 01/22/22 14:37 Pulse 95 01/22/22 14:37 Resp 16 01/22/22 14:37 BP 103/61 01/22/22 14:37 Pulse Ox 99 01/22/22 12:24 BMI result Body Mass Index 32.6 Appearance: Alert. Oriented X2. No acute distress. Flat affect, unkempt, di sheveled Eyes: Pupils equal, round and reactive to light. ENT: Pharynx mild dry MM Neck: Normal inspection. Neck supple. CVS: Normal heart rate and rhythm. Pulses normal. Respiratory: No respiratory distress. Breath sounds normal. Abdomen: Soft and nontender. Contusions non tense and not firm noted L chest wall and L hip area but no large hematoma felt under the skin Skin: Skin warm and dry. Normal skin color. Normal skin turgor. Extremities: 1+ pitting bilateral lower extremity edema. No calf ttp bruising noted on both knees but full ROM Neuro: Oriented X 2 (thinks it is 2020). No motor deficit. No sensory deficit. CN 2-12 intact Course Course Course Narrative: lithium is elevated IVF x 2L ordered, patient apparently has been taking his lithium INR also elevated but HR stable H/H stable - CT scan ordered FFP and Vit K ordered patietn is obese IBW = 82 kg = 2460 30cc/kg bolus ordered H/H stable, no signs of internal bleeding will hold kcentra hypotension due to dehydration at this time and not infection or severe sepsis BP improved, CBC likely hemodilution , recheck of hematoma on L hip, L chest wall no expansion noted they are not tense some improvement in Cr patient is making urine MDM - Weakness MDM Narrative Medical decision making narrative: 76 yo male with hx of mental health disease, PAF on coumadin, SSS with PPM, HTN, HLD, comes from home with c/o not taking care of himself or taking his medications at this time will obtain villatoro labs, CT head/cspine given falls. Obtain UA and CXR for infection. If he is medically cleared will refer to psych team given hallucinations and decompensation off of his psychiatric medications. Lab Data Result diagrams: 01/22/22 15:26 01/22/22 15:26 Labs: Lab Results 01/22/22 01/22/22 01/22/22 Range/Units 10:54 10:54 10:54 WBC 8.3 (4.8-10.8) X10*3/uL RBC 3.68 L (4.60-5.80) X10*6/uL Hgb 10.7 L (14.0-18.0) g/dl Hct 36.7 L (42.0-52.0) % MCV 99.7 H (80.0-98.0) fL MCH 29.1 (27.0-33.0) pg MCHC 29.2 L (31.0-36.0) g/dl RDW 15.3 (11.0-16.0) % Plt Count 54 L (160-400) X10*3/uL MPV 12.0 (9.4-12.4) fL Immature Gran % (Auto) 0.6 H (0.0-0.4) % Neut % (Auto) 88.9 H (45-73) % Lymph % (Auto) 5.5 L (20-40) % Anderson % (Auto) 4.2 (2-11) % Eos % (Auto) 0.7 (0-4) % Baso % (Auto) 0.1 (0-2) % Lymph # (Auto) 0.5 L (1.2-4.9) X10*3/uL Anderson # (Auto) 0.4 (0.1-1.2) X10*3/uL Eos # (Auto) 0.1 (0.0-0.4) X10*3/uL Baso # (Auto) 0.0 (0.0-0.2) X10*3/uL Abs Immat Gran (auto) 0.05 H (0.00-0.03) X10*3/uL Absolute Neuts (auto) 7.4 (2.0-8.3) x10*3/uL Absolute Nucleated RBC 0.000 (0.0-0.012) X10*3/uL Nucleated RBC % (auto) 0.0 (0.0-0.2) /100WBC PT (9.9-13.0) SEC INR (0.9-1.1) APTT (24.1-38.0) SEC Sodium 137 (135-145) mmol/L Potassium 4.4 (3.3-5.1) mmol/L Chloride 105 (96-108) mmol/L Carbon Dioxide 24 (22-29) mmol/L Anion Gap 12 (12-20) BUN 33 H D (9-16) mg/dL Creatinine 1.84 H (0.5-1.4) mg/dL Estim Creat Clear Calc 45.4 Estimated GFR 36 Random Glucose 75 (60-115) mg/dL Calcium 8.7 (8.4-10.2) mg/dL Magnesium 2.6 (1.6-2.6) mg/dL Total Bilirubin 2.4 H (0.0-1.0) mg/dL Direct Bilirubin 1.2 H (0.0-0.5) mg/dL AST 10 D (5-37) U/L ALT < 6 (0-40) U/L Alkaline Phosphatase 102 (39-117) U/L Total Creatine Kinase 25 L (38-174) U/L Troponin I High Sens (<3.5-35.0) ng/L B-Natriuretic Peptide (<100) pg/mL Total Protein 6.6 (6.5-8.0) g/dL Albumin 3.5 (3.5-5.0) g/dL Lipase 39 (8-78) U/L TSH (0.32-4.0) uIU/mL Urine Color Urine Appearance Urine pH (5.0-8.0) Ur Specific [place] (1.005-1.025) Urine Protein (NEG-TRACE) MG/DL Urine Glucose (UA) (NEG) MG/DL Urine Ketones (NEG) MG/DL Urine Blood (NEG) Urine Nitrite (NEG) Ur Leukocyte Esterase (NEG) Salicylates < 5.0 L (15-30) mg/dL Acetaminophen < 1 (<30) mcg/mL [place] (0.60-1.20) mmol/L COVID-19 ([facility]) Negative (Negative) COVID-19 Clin Com See Note Blood Type Antibody Screen 01/22/22 01/22/22 01/22/22 Range/Units 10:54 10:54 10:54 WBC (4.8-10.8) X10*3/uL RBC (4.60-5.80) X10*6/uL Hgb (14.0-18.0) g/dl Hct (42.0-52.0) % MCV (80.0-98.0) fL MCH (27.0-33.0) pg MCHC (31.0-36.0) g/dl RDW (11.0-16.0) % Plt Count (160-400) X10*3/uL MPV (9.4-12.4) fL Immature Gran % (Auto) (0.0-0.4) % Neut % (Auto) (45-73) % Lymph % (Auto) (20-40) % Anderson % (Auto) (2-11) % Eos % (Auto) (0-4) % Baso % (Auto) (0-2) % Lymph # (Auto) (1.2-4.9) X10*3/uL [place] # (Auto) (0.1-1.2) X10*3/uL Eos # (Auto) (0.0-0.4) X10*3/uL Baso # (Auto) (0.0-0.2) X10*3/uL Abs Immat Gran (auto) (0.00-0.03) X10*3/uL Absolute Neuts (auto) (2.0-8.3) x10*3/uL Absolute Nucleated RBC (0.0-0.012) X10*3/uL Nucleated RBC % (auto) (0.0-0.2) /100WBC PT 124.1 H (9.9-13.0) SEC INR 10.4 H* D (0.9-1.1) APTT 70.8 H* (24.1-38.0) SEC Sodium (135-145) mmol/L Potassium (3.3-5.1) mmol/L Chloride (96-108) mmol/L Carbon Dioxide (22-29) mmol/L Anion Gap (12-20) BUN (9-16) mg/dL Creatinine (0.5-1.4) mg/dL Estim Creat Clear Calc Estimated GFR Random Glucose (60-115) mg/dL Calcium (8.4-10.2) mg/dL Magnesium (1.6-2.6) mg/dL Total Bilirubin (0.0-1.0) mg/dL Direct Bilirubin (0.0-0.5) mg/dL AST (5-37) U/L ALT (0-40) U/L Alkaline Phosphatase (39-117) U/L Total Creatine Kinase (38-174) U/L Troponin I High Sens 6.0 (<3.5-35.0) ng/L B-Natriuretic Peptide (<100) pg/mL Total Protein (6.5-8.0) g/dL Albumin (3.5-5.0) g/dL Lipase (8-78) U/L TSH 1.52 (0.32-4.0) uIU/mL Urine Color Urine Appearance Urine pH (5.0-8.0) Ur Specific [place] (1.005-1.025) Urine Protein (NEG-TRACE) MG/DL Urine Glucose (UA) (NEG) MG/DL Urine Ketones (NEG) MG/DL Urine Blood (NEG) Urine Nitrite (NEG) Ur Leukocyte Esterase (NEG) Salicylates (15-30) mg/dL Acetaminophen (<30) mcg/mL [place] (0.60-1.20) mmol/L COVID-19 ([facility]) (Negative) COVID-19 Clin Com Blood Type Antibody Screen 01/22/22 01/22/22 01/22/22 Range/Units 10:54 12:14 13:12 WBC (4.8-10.8) X10*3/uL RBC (4.60-5.80) X10*6/uL Hgb (14.0-18.0) g/dl Hct (42.0-52.0) % MCV (80.0-98.0) fL MCH (27.0-33.0) pg MCHC (31.0-36.0) g/dl RDW (11.0-16.0) % Plt Count (160-400) X10*3/uL MPV (9.4-12.4) fL Immature Gran % (Auto) (0.0-0.4) % Neut % (Auto) (45-73) % Lymph % (Auto) (20-40) % Anderson % (Auto) (2-11) % Eos % (Auto) (0-4) % Baso % (Auto) (0-2) % Lymph # (Auto) (1.2-4.9) X10*3/uL [place] # (Auto) (0.1-1.2) X10*3/uL Eos # (Auto) (0.0-0.4) X10*3/uL Baso # (Auto) (0.0-0.2) X10*3/uL Abs Immat Gran (auto) (0.00-0.03) X10*3/uL Absolute Neuts (auto) (2.0-8.3) x10*3/uL Absolute Nucleated RBC (0.0-0.012) X10*3/uL Nucleated RBC % (auto) (0.0-0.2) /100WBC PT (9.9-13.0) SEC INR (0.9-1.1) APTT (24.1-38.0) SEC Sodium (135-145) mmol/L Potassium (3.3-5.1) mmol/L Chloride (96-108) mmol/L Carbon Dioxide (22-29) mmol/L Anion Gap (12-20) BUN (9-16) mg/dL Creatinine (0.5-1.4) mg/dL Estim Creat Clear Calc Estimated GFR Random Glucose (60-115) mg/dL Calcium (8.4-10.2) mg/dL Magnesium (1.6-2.6) mg/dL Total Bilirubin (0.0-1.0) mg/dL Direct Bilirubin (0.0-0.5) mg/dL AST (5-37) U/L ALT (0-40) U/L Alkaline Phosphatase (39-117) U/L Total Creatine Kinase (38-174) U/L Troponin I High Sens (<3.5-35.0) ng/L B-Natriuretic Peptide 1391 H (<100) pg/mL Total Protein (6.5-8.0) g/dL Albumin (3.5-5.0) g/dL Lipase (8-78) U/L TSH (0.32-4.0) uIU/mL Urine Color Urine Appearance Urine pH (5.0-8.0) Ur Specific [place] (1.005-1.025) Urine Protein (NEG-TRACE) MG/DL Urine Glucose (UA) (NEG) MG/DL Urine Ketones (NEG) MG/DL Urine Blood (NEG) Urine Nitrite (NEG) Ur Leukocyte Esterase (NEG) Salicylates (15-30) mg/dL Acetaminophen (<30) mcg/mL [place] 1.95 H* (0.60-1.20) mmol/L COVID-19 ([facility]) (Negative) COVID-19 Clin Com Blood Type A Negative Antibody Screen NEGATIVE 01/22/22 01/22/22 01/22/22 Range/Units 14:47 15:26 15:26 WBC 8.1 (4.8-10.8) X10*3/uL RBC 3.27 L (4.60-5.80) X10*6/uL Hgb 9.5 L (14.0-18.0) g/dl Hct 33.0 L (42.0-52.0) % MCV 100.9 H (80.0-98.0) fL MCH 29.1 (27.0-33.0) pg MCHC 28.8 L (31.0-36.0) g/dl RDW 15.2 (11.0-16.0) % Plt Count 47 L (160-400) X10*3/uL MPV 12.9 H (9.4-12.4) fL Immature Gran % (Auto) (0.0-0.4) % Neut % (Auto) (45-73) % Lymph % (Auto) (20-40) % [place] % (Auto) (2-11) % Eos % (Auto) (0-4) % Baso % (Auto) (0-2) % Lymph # (Auto) (1.2-4.9) X10*3/uL [place] # (Auto) (0.1-1.2) X10*3/uL Eos # (Auto) (0.0-0.4) X10*3/uL Baso # (Auto) (0.0-0.2) X10*3/uL Abs Immat Gran (auto) (0.00-0.03) X10*3/uL Absolute Neuts (auto) (2.0-8.3) x10*3/uL Absolute Nucleated RBC 0.000 (0.0-0.012) X10*3/uL Nucleated RBC % (auto) 0.0 (0.0-0.2) /100WBC PT (9.9-13.0) SEC INR (0.9-1.1) APTT (24.1-38.0) SEC Sodium (135-145) mmol/L Potassium (3.3-5.1) mmol/L Chloride (96-108) mmol/L Carbon Dioxide (22-29) mmol/L Anion Gap (12-20) BUN (9-16) mg/dL Creatinine 1.72 H (0.5-1.4) mg/dL Estim Creat Clear Calc 48.5 Estimated GFR 39 Random Glucose (60-115) mg/dL Calcium (8.4-10.2) mg/dL Magnesium (1.6-2.6) mg/dL Total Bilirubin (0.0-1.0) mg/dL Direct Bilirubin (0.0-0.5) mg/dL AST (5-37) U/L ALT (0-40) U/L Alkaline Phosphatase (39-117) U/L Total Creatine Kinase (38-174) U/L Troponin I High Sens (<3.5-35.0) ng/L B-Natriuretic Peptide (<100) pg/mL Total Protein (6.5-8.0) g/dL Albumin (3.5-5.0) g/dL Lipase (8-78) U/L TSH (0.32-4.0) uIU/mL Urine Color YELLOW Urine Appearance CLEAR Urine pH 6.0 (5.0-8.0) Ur Specific [place] 1.010 (1.005-1.025) Urine Protein NEG (NEG-TRACE) MG/DL Urine Glucose (UA) NEG (NEG) MG/DL Urine Ketones NEG (NEG) MG/DL Urine Blood NEG (NEG) Urine Nitrite NEG (NEG) Ur Leukocyte Esterase NEG (NEG) Salicylates (15-30) mg/dL Acetaminophen (<30) mcg/mL [place] (0.60-1.20) mmol/L COVID-19 ([facility]) (Negative) COVID-19 Clin Com Blood Type Antibody Screen ECG Data Attestation: I personally reviewed and interpreted this ECG as follows: ECG interpretation date: 01/22/22 ECG interpretation time: 11:01 Interpretation: Rate: 100 Rhythm: ventricular paced [place]: left wide complex ST T wave : large t waves - paced rhythm qTC: prolonged prior studies: no acute ischemia The study has been interpreted contemporaneously by me. Critical Care Time Critical Care Time Critical Care Time: Yes Total Critical Care Time: 60 Attestation: repeat labs, IVF x 2L, reversal of elevated INR vit K and FFP, discussion with PCP, admission to hospital, villatoro CT scan for trauma I attest to this time spent taking care of the patient Discharge Plan Discharge Clinical Impression: Adult failure to thrive, AUGUST (acute kidney injury), Elevated INR, Elevated lithium level Patient Disposition: Admitted As Inpatient
--- NOTE | 2022-01-22 10:17 | ECG_ITS ---
Test Reason : weakness Blood Pressure : / mmHG Vent. Rate : 100 BPM Atrial Rate : 100 BPM P-R Int : 000 ms QRS Dur : 230 ms QT Int : 514 ms P-R-T Axes : 000 -44 109 degrees QTc Int : 663 ms Ventricular-paced rhythm Abnormal ECG When compared with ECG of 07-JAN-2022 16:52, No significant change was found Referred By: Erica Ventura Electronically Signed By:Sanjay Collins
[2022-01-22 11:00] LABS: MANUAL DIFF FLAG NO
[2022-01-22 11:01] LABS: Basophils Percent Auto 0.1 % (0-2); Eosinophils Absolute Auto 0.1 X10*3/uL (0.0-0.4); Eosinophils Percent Auto 0.7 % (0-4); Hematocrit 36.7 % (42.0-52.0); Hemoglobin 10.7 g/dl (14.0-18.0); Imm Gran Abs Auto 0.05 X10*3/uL (0.00-0.03); Imm Gran Pct Auto 0.6 % (0.0-0.4); Lymphocytes Absolute Auto 0.5 X10*3/uL (1.2-4.9); Lymphocytes Percent Auto 5.5 % (20-40); Mean Corpuscular HGB Conc 29.2 g/dl (31.0-36.0); Mean Corpuscular Hemoglobin 29.1 pg (27.0-33.0); Mean Corpuscular Volume 99.7 fL (80.0-98.0); Monocytes Absolute Auto 0.4 X10*3/uL (0.1-1.2); Monocytes Percent Auto 4.2 % (2-11); Neutrophils Absolute Auto 7.4 x10*3/uL (2.0-8.3); Neutrophils Percent Auto 88.9 % (45-73); Red Blood Count 3.68 X10*6/uL (4.60-5.80); Red Cell Distribution Width 15.3 % (11.0-16.0); White Blood Count 8.3 X10*3/uL (4.8-10.8)
[2022-01-22 11:02] LABS: Platelet Count 54 X10*3/uL (160-400)
[2022-01-22] MEDS: 0.9 % Sodium Chloride 500 ML IV ×2 (11:06→14:08)
[2022-01-22 11:16] LABS: Prothrombin Time 124.1 SEC (9.9-13.0)
[2022-01-22 11:17] LABS: COVID-19 Test Negative (Negative)
[2022-01-22 11:26] LABS: Acetaminophen LAB < 1 mcg/mL (<30); Alanine Aminotransferase < 6 U/L (0-40); Albumin Level 3.5 g/dL (3.5-5.0); Alkaline Phosphatase 102 U/L (39-117); Anion Gap 12 (12-20); Aspartate Amino Transferase 10 U/L (5-37); Bilirubin Direct 1.2 mg/dL (0.0-0.5); Bilirubin Total 2.4 mg/dL (0.0-1.0); Blood Urea Nitrogen 33 mg/dL (9-16); Calcium 8.7 mg/dL (8.4-10.2); Carbon Dioxide 24 mmol/L (22-29); Chloride 105 mmol/L (96-108); Creatinine Clr Calc Pharmacy 45.4; Estimated Glomerular Filt Rate 36; Glucose Random 75 mg/dL (60-115); Lipase 39 U/L (8-78); Lithium 1.95 mmol/L (0.60-1.20); Magnesium 2.6 mg/dL (1.6-2.6); Potassium 4.4 mmol/L (3.3-5.1); Salicylate < 5.0 mg/dL (15-30); Sodium 137 mmol/L (135-145); Total Protein 6.6 g/dL (6.5-8.0)
--- NOTE | 2022-01-22 11:26 | PHA.MEDREC ---
Pharmacy Consult ? Medication Reconciliation Pharmacy has completed the medication reconciliation. Per Dr. Ventura, patient does not know medications, reports he has not taking medications . I contacted Dr. Roy's office for an update list of medications. They reported that patient is on warfarin. They tried to switch him to Xarelto but that was not cover then Eliquis was too expensive so patient preferred to stay on warfarin. Current dose is 5 mg and 6 mg alternating however the office report that INR levels have been wacky therefore if patient is admitted or housed in the Emergency department INR will have to be closely monitor. Patient is receiving 1 mg and 5 mg from the pharmacy which could cause for patient error. On medication list from grayson's office - colace, lactulose and flexeril had not been recently filled therefore I left out of medication list. Agatha Donohue, BrianD
[2022-01-22 11:28] LABS: INTERNATIONAL NORM RATIO 10.4 (0.9-1.1)
[2022-01-22 11:29] LABS: Partial Thromboplastin Time 70.8 SEC (24.1-38.0)
[2022-01-22 11:44] LABS: TSH reflex Free T4 1.52 uIU/mL (0.32-4.0)
--- NOTE | 2022-01-22 11:50 | PC.NURSE ---
aware of hypotensiion. Second IV established. IVF infusing. Pt being moved to monitored bed.
[2022-01-22] MEDS: Phytonadione (Vit K1) 10 MG in 0.9 % Sodium Chloride 50 ML 51 MG IV (12:19)
[2022-01-22] MEDS: 0.9 % Sodium Chloride 1,000 ML 999 ML IV ×3 (12:20→16:55)
[2022-01-22 13:48] LABS: B Type Natriuretic Peptide 1391 pg/mL (<100)
[2022-01-22 15:11] LABS: Appearance Urine CLEAR; Color Urine YELLOW; Glucose Urine UA NEG (NEG); Leukocyte Esterase Urine NEG (NEG); Nitrite Urine NEG (NEG); Urine Blood NEG (NEG); Urine Ketones NEG (NEG); Urine Protein NEG (NEG-TRACE)
[2022-01-22 15:34] LABS: Hemoglobin 9.5 g/dl (14.0-18.0); Mean Corpuscular HGB Conc 28.8 g/dl (31.0-36.0); Mean Corpuscular Hemoglobin 29.1 pg (27.0-33.0); Mean Corpuscular Volume 100.9 fL (80.0-98.0); Mean Platelet Volume 12.9 fL (9.4-12.4); Red Blood Count 3.27 X10*6/uL (4.60-5.80); Red Cell Distribution Width 15.2 % (11.0-16.0); White Blood Count 8.1 X10*3/uL (4.8-10.8)
[2022-01-22 15:41] LABS: Platelet Count 47 X10*3/uL (160-400)
[2022-01-22 15:47] LABS: Creatinine Clr Calc Pharmacy 48.5; Estimated Glomerular Filt Rate 39
--- NOTE | 2022-01-22 16:58 | PC.NURSE ---
Addendum entered by Cruz Fierro 01/22/22 23:17: pt alert and oriented to self, not ox3 Original Note: pt a&ox3, hypotensive - bp 70s/50s, hospitalist notified. pt placed in trendelenburg. NaCl started per hospitalist order. bp 104/73. no new orders at this time.
--- NOTE | 2022-01-22 17:32 | P.HPHOSP_ITS ---
History of Present Illness Date of Service: 01/22/22 Attending physician on admission: Rose Marie Pa Chief Complaint: Generalized weakness/ Failure to thrive 76-year-old gentleman with past medical history of atrial fibrillation on Coumadin, history of Parkinson's disease, hypothyroidism, depression on lithium, hypertension sent to [facility] by PCP for not doing well for 1-1/2 weeks was evaluated by PCP few days ago with generalized weakness, decreased by mouth intake, no acute cause was found but since symptoms persisted with worsening lethargy falls, and confusion, patient unable to provide history in the emergency room therefore call patient's friend she helps him with his medications according to her patient has been mostly in bed for last 1 week has had only 2 meals , is unable to take his afternoon and evening medications of Sinemet otherwise has been taking all other medications, at baseline patient is able to ambulate and drive a car, she denies any recent stay travel, no sick contacts no recent bout of nausea vomiting diarrhea, no urinary symptoms of urgency frequency, in the emergency room workup revealed an elevated BNP of 1 391, lithium level of 1.95 TSH is within normal limits INR 10.4, patient noted to have significant left anterior chest wall bruising, he is confused noted to have low blood pressures patient treated in the emergency room with IV fluids, vitamin K, and FFP, underwent extensive imaging studies CT chest showed left prepectoral patchy opacity that seems to be consistent with left anterior chest wall bruising, no evidence of rib fractures or pneumothorax noted, CT abdomen showed no acute abnormality patient is now being admitted to [facility] due to lithium toxicity, supratherapeutic INR and failure to thrive. Review of Systems Review of Systems: General no headache, no dizziness no fever chills. CVS no chest pain, no palpitation. Respiratory no cough, no sob. Gastrointestinal no nausea no vomiting, no abdominal pain no urinary urgency, no frequency Musculoskeletal no pain Yes all other systems are reviewed and are negative [facility] Medical History Asthma Cardiac pacemaker in situ DJD (degenerative joint disease) High cholesterol HTN (hypertension) Hypothyroidism IBS (irritable bowel syndrome) Parkinsons Paroxysmal atrial flutter Peripheral neuropathy Psychiatric diagnosis Sick sinus syndrome Pertinent family history: History of coronary artery disease on dad's side of family Social History Alcohol intake: current Alcohol intake frequency: a few times a week Alcohol type: beer Patient Tobacco Use Status: Former Tobacco user Advance Directives: Yes Advance Directives on File: Yes Advance Directives Date on File: 03/17/21 service: No Current occupational status: disabled Meds Allergies Allergy/AdvReac Type Severity Reaction Status Date / Time methylphenidate [Ritalin] Allergy Unknown Verified 04/17/20 00:00 ragweed pollen [RAGWEED] Allergy Unknown SNEEZE Unverified 05/15/20 15:13 tizanidine [Zanaflex] Allergy Unknown Verified 04/17/20 00:00 Active Medications: Current Medications Acetaminophen (Acetaminophen 325 Mg Tablet) 650 mg PO Q6H PRN PRN Reason: Pain, Mild (Pain Scale 1-3) Albuterol Sulfate (Albuterol Sulfate 90 Mcg 8 Gm Inhaler) 2 puff INHALE Q4H PRN PRN Reason: Wheezing Atorvastatin Calcium (Atorvastatin Calcium 20 Mg Tablet) 20 mg PO BEDTIME [facility] Bupropion HCl (Bupropion Hcl Xl 300 Mg Tab.Er.24h) 300 mg PO DAILY [facility] Carbidopa/Levodopa (Carbidopa/Levodopa 25/100 Tablet) 1 tab PO QID ZACK Last Admin: 01/22/22 16:58 Dose: Not Given Documented by: Folic Acid (Folic Acid 1 Mg Tablet) 1 mg PO DAILY [facility] Gabapentin (Gabapentin 300 Mg Capsule) 600 mg PO BEDTIME [facility] Sodium Chloride (Ns) 1,000 mls @ 999 mls/hr IV .Q1H1M ZACK Stop: 01/22/22 18:00 Last Admin: 01/22/22 16:55 Dose: 999 mls/hr Documented by: Dextrose/Sodium Chloride (D5ns) 1,000 mls @ 100 mls/hr IVCONT .Q10H [facility] Levothyroxine Sodium (Levothyroxine Sodium 50 Mcg Tablet) 50 mcg PO DAILY@0600 [facility] Ondansetron HCl (Ondansetron Hcl 4 Mg/2 Ml Vial) 4 mg IVPUSH Q8H PRN PRN Reason: Nausea and Vomiting Pharmacy Consult (Consult Rx Perform Med Rec) 1 each MISCELLANE ONCE PRN PRN Reason: Consult order Sodium Chloride (0.9 % Sodium Chloride Flush 3 Ml Syringe) 3 ml IVFLUSH QSHIFT [facility] Home Medications Medication Instructions Recorded Confirmed Last Taken Type bupropion HCl 300 mg 24 hr tablet, 300 mg PO QAM 02/23/21 01/22/22 Unknown History extended release gabapentin 300 mg capsule 600 mg PO BEDTIME 02/23/21 01/22/22 Unknown History levothyroxine 50 mcg capsule 50 mcg PO DAILY 02/23/21 01/22/22 Unknown History lithium carbonate 300 mg capsule 300 mg PO BID 02/23/21 01/22/22 Unknown History warfarin 1 mg tablet 1 mg PO Q48H 02/23/21 01/22/22 Unknown History warfarin 5 mg tablet 5 mg PO DAILY 02/23/21 01/22/22 Unknown History carbidopa 25 mg-levodopa 100 mg 1 tab PO QID 10/20/21 01/22/22 Unknown History tablet metoprolol succinate 50 mg 50 mg PO DAILY 10/20/21 01/22/22 Unknown History tablet,extended release 24 hr albuterol sulfate 90 mcg/actuation 2 puff INHALATION Q4H PRN 01/22/22 01/22/22 Unknown History aerosol inhaler atorvastatin 20 mg tablet 20 mg PO BEDTIME 01/22/22 01/22/22 Unknown History folic acid 1 mg tablet 1 tab PO DAILY 01/22/22 01/22/22 Unknown History Physical Exam Vital Signs and Narrative: Vital Signs: Last Vital Signs Temp 97.7 F 01/22/22 14:37 Pulse 95 01/22/22 17:25 Resp 18 01/22/22 17:25 BP 96/63 01/22/22 17:25 Pulse Ox 100 01/22/22 16:00 BMI result Body Mass Index 32.6 Const: Other: General awake alert pleasantly confused, no acute distress. HEENT pupils equal round reactive to light and accommodation Neck supple no JVD. CVS regular rate rhythm, Respiratory lungs clear to auscultation, no respiratory distress, no wheeze, no rhonchi. Gastrointestinal abdomen obese, soft, nontender, bowel sounds audible, no guarding , no rigidity. Extremities no edema. Neuro nonfocal, moving all 4 extremity, speech clear. Skin large bruise left anterior chest wall, mild tenderness to palpation Psych poor insight Musculoskeletal no deformity Results Labs CBC and Chem 7: 01/22/22 15:26 01/23/22 04:58 Labs: Laboratory Results - last 24 hr 01/22/22 01/22/22 01/22/22 10:54 10:54 10:54 MCV 99.7 H MCH 29.1 MCHC 29.2 L RDW 15.3 Plt Count 54 L MPV 12.0 Immature Gran % (Auto) 0.6 H Neut % (Auto) 88.9 H Lymph % (Auto) 5.5 L [place] % (Auto) 4.2 Eos % (Auto) 0.7 Baso % (Auto) 0.1 Lymph # (Auto) 0.5 L [place] # (Auto) 0.4 Eos # (Auto) 0.1 Baso # (Auto) 0.0 Abs Immat Gran (auto) 0.05 H Absolute Neuts (auto) 7.4 Absolute Nucleated RBC 0.000 Nucleated RBC % (auto) 0.0 PT INR APTT Anion Gap 12 Estim Creat Clear Calc 45.4 Estimated GFR 36 Random Glucose 75 Calcium 8.7 Magnesium 2.6 Total Bilirubin 2.4 H Direct Bilirubin 1.2 H AST 10 D ALT < 6 Alkaline Phosphatase 102 Total Creatine Kinase 25 L Troponin I High Sens B-Natriuretic Peptide Total Protein 6.6 Albumin 3.5 Lipase 39 TSH Urine Color Urine Appearance Urine pH Ur Specific [place] Urine Protein Urine Glucose (UA) Urine Ketones Urine Blood Urine Nitrite Ur Leukocyte Esterase Salicylates < 5.0 L Acetaminophen < 1 [place] COVID-19 ([facility]) Negative COVID-19 Clin Com See Note Blood Type Antibody Screen 01/22/22 01/22/22 01/22/22 10:54 10:54 10:54 MCV MCH MCHC RDW Plt Count MPV Immature Gran % (Auto) Neut % (Auto) Lymph % (Auto) [place] % (Auto) Eos % (Auto) Baso % (Auto) Lymph # (Auto) [place] # (Auto) Eos # (Auto) Baso # (Auto) Abs Immat Gran (auto) Absolute Neuts (auto) Absolute Nucleated RBC Nucleated RBC % (auto) PT 124.1 H INR 10.4 H* D APTT 70.8 H* Anion Gap Estim Creat Clear Calc Estimated GFR Random Glucose Calcium Magnesium Total Bilirubin Direct Bilirubin AST ALT Alkaline Phosphatase Total Creatine Kinase Troponin I High Sens 6.0 B-Natriuretic Peptide Total Protein Albumin Lipase TSH 1.52 Urine Color Urine Appearance Urine pH Ur Specific [place] Urine Protein Urine Glucose (UA) Urine Ketones Urine Blood Urine Nitrite Ur Leukocyte Esterase Salicylates Acetaminophen [place] COVID-19 ([facility]) COVID-19 [employer] Com Blood Type Antibody Screen 01/22/22 01/22/22 01/22/22 10:54 12:14 13:12 MCV MCH MCHC RDW Plt Count MPV Immature Gran % (Auto) Neut % (Auto) Lymph % (Auto) [place] % (Auto) Eos % (Auto) Baso % (Auto) Lymph # (Auto) [place] # (Auto) Eos # (Auto) Baso # (Auto) Abs Immat Gran (auto) Absolute Neuts (auto) Absolute Nucleated RBC Nucleated RBC % (auto) PT INR APTT Anion Gap Estim Creat Clear Calc Estimated GFR Random Glucose Calcium Magnesium Total Bilirubin Direct Bilirubin AST ALT Alkaline Phosphatase Total Creatine Kinase Troponin I High Sens B-Natriuretic Peptide 1391 H Total Protein Albumin Lipase TSH Urine Color Urine Appearance Urine pH Ur Specific [place] Urine Protein Urine Glucose (UA) Urine Ketones Urine Blood Urine Nitrite Ur Leukocyte Esterase Salicylates Acetaminophen [place] 1.95 H* COVID-19 ([place]) [employer]19 [place] Blood Type A Negative Antibody Screen NEGATIVE 01/22/22 01/22/22 01/22/22 14:47 15:26 15:26 MCV 100.9 H MCH 29.1 MCHC 28.8 L RDW 15.2 Plt Count 47 L MPV 12.9 H Immature Gran % (Auto) Neut % (Auto) Lymph % (Auto) [place] % (Auto) Eos % (Auto) Baso % (Auto) Lymph # (Auto) [place] # (Auto) Eos # (Auto) Baso # (Auto) Abs Immat Gran (auto) Absolute Neuts (auto) Absolute Nucleated RBC 0.000 Nucleated RBC % (auto) 0.0 PT INR APTT Anion Gap Estim Creat Clear Calc 48.5 Estimated GFR 39 Random Glucose Calcium Magnesium Total Bilirubin Direct Bilirubin AST ALT Alkaline Phosphatase Total Creatine Kinase Troponin I High Sens B-Natriuretic Peptide Total Protein Albumin Lipase TSH Urine Color YELLOW Urine Appearance CLEAR Urine pH 6.0 Ur Specific [place] 1.010 Urine Protein NEG Urine Glucose (UA) NEG Urine Ketones NEG Urine Blood NEG Urine Nitrite NEG Ur Leukocyte Esterase NEG Salicylates Acetaminophen [place] COVID-19 ([place]) COVID-19 [employer] Com Blood Type Antibody Screen Imaging Radiologist's Impressions: Impressions Chest X-Ray 01/22/22 10:42 IMPRESSION: No evidence for acute disease in the chest. Low lung volumes and crowding of the central bronchovascular markings. Cervical Spine CT 01/22/22 11:17 IMPRESSION: * No intracranial hemorrhage or other acute intracranial pathology. * No fracture or traumatic subluxation in the degenerated cervical spine. * The finding of interlobular septal thickening and groundglass opacity at the lung apices is probably from cardiogenic edema. Head CT 01/22/22 11:17 IMPRESSION: * No intracranial hemorrhage or other acute intracranial pathology. * No fracture or traumatic subluxation in the degenerated cervical spine. * The finding of interlobular septal thickening and groundglass opacity at the lung apices is probably from cardiogenic edema. Abdomen/Pelvis CT 01/22/22 12:38 IMPRESSION: * A focal area of patchy opacity in subcutaneous tissues in the left prepectoral region could represent minor hemorrhage from recent trauma. Query if there is any bruising of the left chest wall. No evidence of rib fracture or pneumothorax. * Mild pulmonary emphysema and several micronodules in the right lung. Also, there is a 0.6 cm nodule of the lateral right lung apex. Based on use of Fleischner Society guidelines, recommend chest CT follow-up in the next 3-6 months. * Cardiomegaly, pulmonary edema and small pleural effusions. * No acute skeletal findings. Chest CT 01/22/22 12:38 IMPRESSION: * A focal area of patchy opacity in subcutaneous tissues in the left prepectoral region could represent minor hemorrhage from recent trauma. Query if there is any bruising of the left chest wall. No evidence of rib fracture or pneumothorax. * Mild pulmonary emphysema and several micronodules in the right lung. Also, there is a 0.6 cm nodule of the lateral right lung apex. Based on use of Fleischner Society guidelines, recommend chest CT follow-up in the next 3-6 months. * Cardiomegaly, pulmonary edema and small pleural effusions. * No acute skeletal findings. Assessment and Plan (1) Adult failure to thrive: Status: Acute (2) AUGUST (acute kidney injury): Status: Acute (3) Elevated INR: Status: Acute (4) Elevated lithium level: Status: Acute (5) HTN (hypertension): Status: Acute (6) Cardiac pacemaker in situ: Status: Acute (7) SOB (shortness of breath) on exertion: Status: Acute Plan 76-year-old gentleman with past medical history significant for atrial fibrillation, dyslipidemia, hypertension, Parkinson's disease, depression on lithium presented to [facility] with symptoms of generalized weakness decreased by mouth intake, confusion and lethargy patient diagnosed to have lithium toxicity, hypotension, supratherapeutic INR, acute encephalopathy and acute kidney injury patient will be admitted to intermediate care unit for continued monitoring and treatment. Acute toxic metabolic encephalopathy Likely due to lithium toxicity/will obtain respiratory viral panel to rule out infection, chest x-ray showed no acute abnormality, UA unremarkable, CT head showed no intracranial hemorrhage or acute abnormality Hallucinating, follow clinical course, hold lithium follow repeat level [place] toxicity Likely due to acute kidney injury, hold lithium repeat level, IV fluid Paroxysmal atrial flutter EKG showed ventricular paced rhythm on beta-blockers and Coumadin will hold both due to low blood pressure and elevated INR Supratherapeutic INR Patient received vitamin K and fresh frozen plasma will follow PT INR at a.m. hold Coumadin Acute kidney injury Due to poor by mouth intake likely pre renal will give IV fluids and follow renal function avoid nephrotoxins and hypotension Hypotension no evidence of sepsis likely due to decreased by mouth intake will aggressively treat with IV fluids hold metoprolol Dyslipidemia continue statin Parkinson's disease continue Sinemet Failure to thrive /falls left anterior chest wall hematoma likely due to fall, will obtain PT eval Thrombocytopenia seems chronic Elevated BNP 1391 clinically patient not in heart failure, follow clinical course. Right lung apex 0.6 cm nodule, outpatient CT chest in 3-6 months recommended DVT prophylaxis patient with supratherapeutic INR Spoke with patient's friend Stacy Jon [phone], verified history with her and informed her about patient's clinical condition, she administer medications to patient during daytime patient is supposed to take only Sinemet in afternoon and evening by himself. Patient will need 2 night inpatient hospitalization due to lithium toxicity with acute toxic metabolic encephalopathy and hypotension required IV hydration, medication adjustment and close clinical follow-up. Quality Stroke Does the patient have a stroke diagnosis?: No VTE Prior VTE?: No VTE Risk Level:: Medical - moderate - high VTE Device Contraindication: Treatment Not Indicated VTE Drug Contraindication: Treatment Not Indicated
[2022-01-22] MEDS: Dextrose 5 % and 0.9 % NaCl 1,000 ML 100 ML IVCONT (19:33)
[2022-01-22 22:11] LABS: INTERNATIONAL NORM RATIO 2.2 (0.9-1.1)
[2022-01-22] MEDS: Gabapentin 300 MG CAPSULE 600 MG PO (22:37)
[2022-01-22] MEDS: Atorvastatin Calcium 20 MG TABLET PO (22:37)
[2022-01-22] MEDS: Hydrocortisone Sod Succ/PF 100 MG VIAL IVPUSH (22:37)
[2022-01-22] MEDS: Carbidopa/Levodopa 25/100 TABLET 1 TAB PO (22:37)
[2022-01-22] MEDS: Albumin Human 25 % 100 ML IV (22:38)
--- NOTE | 2022-01-22 23:18 | PC.NURSE ---
pt sleeping, rousable, alert and oriented to self, pt remains hypotensive with a HR 80-106. medicated per provider order.
[2022-01-23] VITALS (7 sets, daily range): BP systolic 102–120; BP diastolic 63–82; PULSE 92–100; RESP 18–24; TEMP 36.2–36.6; O2SAT 92–97
[2022-01-23] MEDS: Albumin Human 25 % 100 ML IV (00:23)
[2022-01-23] MEDS: Midodrine HCl 5 MG TABLET PO (00:24)
[2022-01-23 06:10] LABS: INTERNATIONAL NORM RATIO 1.8 (0.9-1.1); Prothrombin Time 20.5 SEC (9.9-13.0)
[2022-01-23 06:28] LABS: Anion Gap 12 (12-20); Blood Urea Nitrogen 27 mg/dL (9-16); Calcium 7.9 mg/dL (8.4-10.2); Carbon Dioxide 18 mmol/L (22-29); Chloride 113 mmol/L (96-108); Creatinine Clr Calc Pharmacy 53.5; Estimated Glomerular Filt Rate 43; Glucose Random 124 mg/dL (60-115); Potassium 4.4 mmol/L (3.3-5.1); Sodium 139 mmol/L (135-145)
[2022-01-23] MEDS: Dextrose 5 % and 0.9 % NaCl 1,000 ML 100 ML IVCONT (06:36)
[2022-01-23] MEDS: Levothyroxine Sodium 50 MCG TABLET PO (06:36)
[2022-01-23] MEDS: buPROPion HCl XL 300 MG TAB.ER.24H PO (09:09)
[2022-01-23] MEDS: Carbidopa/Levodopa 25/100 TABLET 1 TAB PO ×4 (09:09→19:30)
[2022-01-23] MEDS: Folic Acid 1 MG TABLET PO (09:09)
[2022-01-23] MEDS: 0.9 % Sodium Chloride Flush 3 ML SYRINGE IVFLUSH (09:10)
--- NOTE | 2022-01-23 09:20 | MHC.CM.PN ---
PATIENT IS NOT ABLE TO ACCURATELY ANSWER ASSESSMENT QUESTIONS. HE IS ALERT TO SELF ONLY DURING CONVERSATION CALL TO HCP ANIKET @ [phone]. ANIKET HAS BEEN CARING FOR PATIENT FOR APPROXIMATELY TWENTY YEARS. HE LIVES ON THE FIRST FLOOR OF A TWO FAMILY HOME, AND HCP LIVES UPSTAIRS. ANIKET REPORTS THAT PATIENT BECAME ILL 2 WEEKS AGO AND STARTED HALLUCINATING 1.5 WEEKS AGO ANIKET STATES THAT PATIENT HAS BEEN NONCOMPLIANT WITH HIS MEDICATIONS. SHE CAN GET HIM TO TAKE HIS MORNING MEDICATIONS, BUT THEN PATIENT IS ALONE THROUGHOUT THE DAY AND DOES NOT TAKE THEM PATIENT SEES DR GEMMA LOPEZ FOR PSYCHIATRIC NEEDS AND DR ROJAS FOR PARKINSON'S MAMANGEMENT HE HAS BEEN COVID VACCINATED X 2 ANIKET WILL INFORM THIS INSULATION EXTRUDER OPERATOR OF DATES WHEN SHE LOCATES HIS CARD. REQUEST FOR REFERRALS TO [facility], NOW PLACED. IN THE EVENT THAT PATIENT IS UNABLE TO PARTICIPATE IN REHAB, ANIKET IS AWARE, AND AGREEABLE TO, [facility] APPLICATION REQUEST BEING SENT TO [facility] FACE SHEET FAXED TO [phone] IMM 01/23 DISCUSSED AND COPY IN CHART ORIGINAL TO BE MAILED CERTIFIED TO ANIKET'S ADDRESS ON FILE
[2022-01-23 13:35] LABS: Adenovirus PCR Not Detected (Not Detect.); Bordetella parapertussis PCR Not Detected (Not Detect.); Bordetella pertussis PCR Not Detected (Not Detect.); Chlamydia pneumoniae PCR Not Detected (Not Detect.); Coronavirus 229E PCR Not Detected (Not Detect.); Coronavirus HKU1 PCR Not Detected (Not Detect.); Coronavirus NL63 PCR Not Detected (Not Detect.); Coronavirus OC43 PCR Not Detected (Not Detect.); Human metapneumovirus PCR Not Detected (Not Detect.); Influenza A PCR Not Detected (Not Detect.); Influenza B PCR Not Detected (Not Detect.); Mycoplasma pneumoniae PCR Not Detected (Not Detect.); Parainfluenza 1 PCR Not Detected (Not Detect.); Parainfluenza 2 PCR Not Detected (Not Detect.); Parainfluenza 3 PCR Not Detected (Not Detect.); Parainfluenza 4 PCR Not Detected (Not Detect.); RSV PCR Not Detected (Not Detect.); Rhino/Enterovirus PCR Not Detected (Not Detect.); SARS-CoV-2 PCR Not Detected (Not Detect.)
--- NOTE | 2022-01-23 13:53 | HO.PM.IMPN ---
Subjective Subjective Date of Service: 01/23/22 Interval History: Patient more awake alert complaining of being thirsty, denies pain, no shortness of breath, no headache, no dizziness, remains pleasantly confused, no hallucinations noted this morning Review of Systems General no headache, no dizziness, no fever chills. CVS no chest pain, no palpitation. Respiratory no cough, no sob. Gastrointestinal no nausea, no vomiting, no abdominal pain Review of Systems: Yes all other systems are reviewed and are negative Physical Exam Vital Signs: Vital Signs: Last Vital Signs Temp 97.8 F 01/23/22 11:28 Pulse 98 01/23/22 11:28 Resp 18 01/23/22 11:28 BP 105/71 01/23/22 11:28 Pulse Ox 96 01/23/22 11:28 BMI result Body Mass Index 32.6 Const: Other: General awake alert pleasantly confused, no acute distress.? HEENT pupils equal round reactive to light and accommodation Neck? supple no JVD. CVS? regular rate rhythm, Respiratory lungs clear to auscultation, no respiratory distress, no wheeze, no rhonchi. Gastrointestinal abdomen obese, soft, nontender, bowel sounds audible, no guarding , no rigidity. Extremities no? edema, long nails Neuro nonfocal, moving all 4 extremity, speech clear. Skin large bruise left anterior chest wall Psych poor insight Musculoskeletal no deformity Objective Data Active Medications Acetaminophen (Acetaminophen 325 Mg Tablet) 650 mg PO Q6H PRN PRN Reason: Pain, Mild (Pain Scale 1-3) Albuterol Sulfate (Albuterol Sulfate 90 Mcg 8 Gm Inhaler) 2 puff INHALE Q4H PRN PRN Reason: Wheezing Atorvastatin Calcium (Atorvastatin Calcium 20 Mg Tablet) 20 mg PO BEDTIME [facility] Last Admin: 01/22/22 22:37 Dose: 20 mg Documented by: JOSIAH Bupropion HCl (Bupropion Hcl Xl 300 Mg Tab.Er.24h) 300 mg PO DAILY [facility] Last Admin: 01/23/22 09:09 Dose: 300 mg Documented by: AMANDA Carbidopa/Levodopa (Carbidopa/Levodopa 25/100 Tablet) 1 tab PO QID [facility] Last Admin: 01/23/22 13:41 Dose: 1 tab Documented by: GABRIELLA Folic Acid (Folic Acid 1 Mg Tablet) 1 mg PO DAILY [facility] Last Admin: 01/23/22 09:09 Dose: 1 mg Documented by: AMANDA Gabapentin (Gabapentin 300 Mg Capsule) 600 mg PO BEDTIME [facility] Last Admin: 01/22/22 22:37 Dose: 600 mg Documented by: JOSIAH Levothyroxine Sodium (Levothyroxine Sodium 50 Mcg Tablet) 50 mcg PO DAILY@0600 [facility] Last Admin: 01/23/22 06:36 Dose: 50 mcg Documented by: CORKY Ondansetron HCl (Ondansetron Hcl 4 Mg/2 Ml Vial) 4 mg IVPUSH Q8H PRN PRN Reason: Nausea and Vomiting Pharmacy Consult (Consult Rx Perform Med Rec) 1 each MISCELLANE ONCE PRN PRN Reason: Consult order Sodium Chloride (0.9 % Sodium Chloride Flush 3 Ml Syringe) 3 ml IVFLUSH QSHIFT [facility] Last Admin: 01/23/22 09:10 Dose: 3 ml Documented by: AMANDA Labs CBC & Chem 7: 01/22/22 15:26 01/23/22 04:58 Labs: Laboratory Results - last 24 hr 01/22/22 01/22/22 01/22/22 12:14 14:47 15:26 MCV MCH MCHC RDW Plt Count MPV Absolute Nucleated RBC Nucleated RBC % (auto) PT INR Anion Gap Estim Creat Clear Calc 48.5 Estimated GFR 39 Random Glucose Calcium Urine Color YELLOW Urine Appearance CLEAR Urine pH 6.0 Ur Specific [place] 1.010 Urine Protein NEG Urine Glucose (UA) NEG Urine Ketones NEG Urine Blood NEG Urine Nitrite NEG Ur Leukocyte Esterase NEG Respiratory Panel [place] Adenovirus (Rapid PCR) B.pert (TEM-PCR) B.parapertussis DNA PCR C. pneumoniae DNA (PCR) Coronavirus OC43 (PCR) Coronavirus HKU1 (PCR) Coronavirus 229E (PCR) Coronavirus NL63 (PCR) Human Metapneumovir PCR Influenza A (RT-PCR) Influenza B (RT-PCR) M. pneumoniae (PCR) Parainfluenza 1 (PCR) Parainfluenza 2 (PCR) Parainfluenza 3 (PCR) Parainfluenza 4 (PCR) RSV (PCR) Entero/Rhino (PCR) SARS-CoV-2 RNA (RT-PCR) Blood Type A Negative Antibody Screen NEGATIVE 01/22/22 01/22/22 01/23/22 15:26 20:58 04:58 MCV 100.9 H MCH 29.1 MCHC 28.8 L RDW 15.2 Plt Count 47 L MPV 12.9 H Absolute Nucleated RBC 0.000 Nucleated RBC % (auto) 0.0 PT 25.0 H 20.5 H INR 2.2 H D 1.8 H Anion Gap Estim Creat Clear Calc Estimated GFR Random Glucose Calcium Urine Color Urine Appearance Urine pH Ur Specific [place] Urine Protein Urine Glucose (UA) Urine Ketones Urine Blood Urine Nitrite Ur Leukocyte Esterase Respiratory Panel [place] Adenovirus (Rapid PCR) B.pert (TEM-PCR) B.parapertussis DNA PCR C. pneumoniae DNA (PCR) Coronavirus OC43 (PCR) Coronavirus HKU1 (PCR) Coronavirus 229E (PCR) Coronavirus NL63 (PCR) Human Metapneumovir PCR Influenza A (RT-PCR) Influenza B (RT-PCR) M. pneumoniae (PCR) Parainfluenza 1 (PCR) Parainfluenza 2 (PCR) Parainfluenza 3 (PCR) Parainfluenza 4 (PCR) RSV (PCR) Entero/Rhino (PCR) SARS-CoV-2 RNA (RT-PCR) Blood Type Antibody Screen 01/23/22 01/23/22 04:58 09:25 MCV MCH MCHC RDW Plt Count MPV Absolute Nucleated RBC Nucleated RBC % (auto) PT INR Anion Gap 12 Estim Creat Clear Calc 53.5 Estimated GFR 43 Random Glucose 124 H D Calcium 7.9 L D Urine Color Urine Appearance Urine pH Ur Specific [place] Urine Protein Urine Glucose (UA) Urine Ketones Urine Blood Urine Nitrite Ur Leukocyte Esterase Respiratory Panel [place] SEE NOTE Adenovirus (Rapid PCR) Not Detected B.pert (TEM-PCR) Not Detected B.parapertussis DNA PCR Not Detected C. pneumoniae DNA (PCR) Not Detected Coronavirus OC43 (PCR) Not Detected Coronavirus HKU1 (PCR) Not Detected Coronavirus 229E (PCR) Not Detected Coronavirus NL63 (PCR) Not Detected Human Metapneumovir PCR Not Detected Influenza A (RT-PCR) Not Detected Influenza B (RT-PCR) Not Detected M. pneumoniae (PCR) Not Detected Parainfluenza 1 (PCR) Not Detected Parainfluenza 2 (PCR) Not Detected Parainfluenza 3 (PCR) Not Detected Parainfluenza 4 (PCR) Not Detected RSV (PCR) Not Detected Entero/Rhino (PCR) Not Detected SARS-CoV-2 RNA (RT-PCR) Not Detected Blood Type Antibody Screen Assessment and Plan (1) Adult failure to thrive: Status: Acute (2) AUGUST (acute kidney injury): Status: Acute (3) Elevated INR: Status: Acute (4) Elevated lithium level: Status: Acute (5) Paroxysmal atrial flutter: Status: Acute Plan 76-year-old gentleman with past medical history significant for atrial fibrillation, dyslipidemia, hypertension, Parkinson's disease, depression on lithium presented to [facility] with symptoms of generalized weakness decreased by mouth intake, confusion and lethargy patient diagnosed to have lithium toxicity, hypotension, supratherapeutic INR, acute encephalopathy and acute kidney injury patient will be admitted to intermediate care unit for continued monitoring and treatment. Acute toxic metabolic encephalopathy More awake alert remains pleasantly confused Likely due to lithium toxicity/respiratory viral panel neg, chest x-ray showed no acute abnormality, UA unremarkable, CT head showed no intracranial hemorrhage or acute abnormality follow clinical course, hold lithium follow repeat level [place] toxicity Likely due to acute kidney injury, hold lithium repeat level, IV fluid Paroxysmal atrial flutter EKG showed ventricular paced rhythm on beta-blockers and Coumadin will hold both due to low blood pressure and elevated INR Supratherapeutic INR Patient received vitamin K and fresh frozen plasma INR dropped to 1.8,will resume Coumadin Acute kidney injury Creatinine trending down, push by mouth fluid,and follow renal function avoid nephrotoxins and hypotension Hypotension no evidence of sepsis likely due to decreased by mouth intake will aggressively treat with IV fluids hold metoprolol Dyslipidemia continue statin Parkinson's disease continue Sinemet Failure to thrive /falls left anterior chest wall hematoma likely due to fall, will obtain PT eval Thrombocytopenia seems chronic Elevated BNP 1391 chest x-ray showed fluid overload, clinically patient not in heart failure, follow clinical course. Right lung apex 0.6 cm nodule, outpatient CT chest in 3-6 months recommended DVT prophylaxis on coumadin INR 1.8 Patient will need continued inpatient hospitalization due to lithium toxicity with acute toxic metabolic encephalopathy and acute renal failure requiring IV hydration and medication adjustment Quality Stroke Does the patient have a stroke diagnosis?: No VTE Prior VTE?: No VTE Risk Level:: Medical - moderate - high VTE Device Contraindication: Treatment Not Indicated VTE Drug Contraindication: Treatment Not Indicated
[2022-01-23] MEDS: Lactated Ringers 1,000 ML 80 ML IVCONT (15:06)
[2022-01-23] MEDS: Warfarin Sodium 1 MG TABLET PO (18:11)
[2022-01-23] MEDS: Gabapentin 300 MG CAPSULE 600 MG PO (19:30)
[2022-01-23] MEDS: Atorvastatin Calcium 20 MG TABLET PO (19:30)
[2022-01-24] VITALS (7 sets, daily range): BP systolic 97–115; BP diastolic 62–81; PULSE 90–103; RESP 17–18; TEMP 36.4–37.1; O2SAT 92–95
[2022-01-24] MEDS: Lactated Ringers 1,000 ML 80 ML IVCONT ×2 (04:03→17:46)
[2022-01-24] MEDS: Levothyroxine Sodium 50 MCG TABLET PO (05:53)
[2022-01-24 06:40] LABS: INTERNATIONAL NORM RATIO 1.6 (0.9-1.1); Prothrombin Time 18.1 SEC (9.9-13.0)
[2022-01-24 06:49] LABS: Lithium 1.35 mmol/L (0.60-1.20)
[2022-01-24 06:57] LABS: Anion Gap 10 (12-20); Blood Urea Nitrogen 21 mg/dL (9-16); Calcium 8.4 mg/dL (8.4-10.2); Carbon Dioxide 21 mmol/L (22-29); Chloride 114 mmol/L (96-108); Creatinine Clr Calc Pharmacy 54.2; Estimated Glomerular Filt Rate 44; Glucose Random 108 mg/dL (60-115); Potassium 3.8 mmol/L (3.3-5.1); Sodium 141 mmol/L (135-145)
[2022-01-24] MEDS: Folic Acid 1 MG TABLET PO (11:34)
[2022-01-24] MEDS: buPROPion HCl XL 300 MG TAB.ER.24H PO (11:34)
[2022-01-24] MEDS: Carbidopa/Levodopa 25/100 TABLET 1 TAB PO ×4 (11:35→22:13)
[2022-01-24] MEDS: 0.9 % Sodium Chloride Flush 3 ML SYRINGE IVFLUSH ×3 (11:35→22:13)
--- NOTE | 2022-01-24 13:33 | HO.PM.IMPN ---
Subjective Subjective Date of Service: 01/24/22 Interval History: More awake alert , this morning answering questions appropriately, aware he is in [facility], continue to feel thirsty, denies pain, no acute issues overnight tolerating diet. Review of Systems General awake alert pleasantly confused, no acute distress.? HEENT pupils equal round reactive to light and accommodation Neck? supple no JVD. CVS? regular rate rhythm, Respiratory lungs clear to auscultation, no respiratory distress, no wheeze, no rhonchi. Gastrointestinal abdomen obese, soft, nontender, bowel sounds audible, no guarding , no rigidity. Extremities no? edema, long nails Neuro nonfocal, moving all 4 extremity, speech clear. Skin large bruise left anterior chest wall Psych poor insight Musculoskeletal no deformity Review of Systems: Yes all other systems are reviewed and are negative Physical Exam Vital Signs: Vital Signs: Last Vital Signs Temp 97.8 F 01/24/22 11:43 Pulse 103 H 01/24/22 11:43 Resp 18 01/24/22 11:43 BP 106/73 01/24/22 11:43 Pulse Ox 95 01/24/22 11:43 BMI result Body Mass Index 32.6 Objective Data Active Medications Acetaminophen (Acetaminophen 325 Mg Tablet) 650 mg PO Q6H PRN PRN Reason: Pain, Mild (Pain Scale 1-3) Albuterol Sulfate (Albuterol Sulfate 90 Mcg 8 Gm Inhaler) 2 puff INHALE Q4H PRN PRN Reason: Wheezing Atorvastatin Calcium (Atorvastatin Calcium 20 Mg Tablet) 20 mg PO BEDTIME [facility] Last Admin: 01/23/22 19:30 Dose: 20 mg Documented by: SULAIMAN Bupropion HCl (Bupropion Hcl Xl 300 Mg Tab.Er.24h) 300 mg PO DAILY [facility] Last Admin: 01/24/22 11:34 Dose: 300 mg Documented by: FELI Carbidopa/Levodopa (Carbidopa/Levodopa 25/100 Tablet) 1 tab PO QID [facility] Last Admin: 01/24/22 11:35 Dose: 1 tab Documented by: FELI Folic Acid (Folic Acid 1 Mg Tablet) 1 mg PO DAILY [facility] Last Admin: 01/24/22 11:34 Dose: 1 mg Documented by: FELI Gabapentin (Gabapentin 300 Mg Capsule) 600 mg PO BEDTIME [facility] Last Admin: 01/23/22 19:30 Dose: 600 mg Documented by: SULAIMAN Comments: pt is awake now Lactated Ringer's (Lr) 1,000 mls @ 80 mls/hr IVCONT .[id number] [facility] Last Admin: 01/24/22 04:03 Dose: 80 mls/hr Documented by: SULAIMAN Levothyroxine Sodium (Levothyroxine Sodium 50 Mcg Tablet) 50 mcg PO DAILY@0600 [facility] Last Admin: 01/24/22 05:53 Dose: 50 mcg Documented by: SULAIMAN Ondansetron HCl (Ondansetron Hcl 4 Mg/2 Ml Vial) 4 mg IVPUSH Q8H PRN PRN Reason: Nausea and Vomiting Pharmacy Consult (Consult Rx Perform Med Rec) 1 each MISCELLANE ONCE PRN PRN Reason: Consult order Sodium Chloride (0.9 % Sodium Chloride Flush 3 Ml Syringe) 3 ml IVFLUSH QSHIFT [facility] Last Admin: 01/24/22 11:35 Dose: 3 ml Documented by: FELI Warfarin Sodium (Warfarin Sodium 2.5 Mg Tablet) 2.5 mg PO DAILY@1800 [facility] Labs CBC & Chem 7: 01/22/22 15:26 01/24/22 05:46 Labs: Laboratory Results - last 24 hr 01/23/22 01/24/22 01/24/22 09:25 05:46 05:46 PT 18.1 H INR 1.6 H Anion Gap 10 L Estim Creat Clear Calc 54.2 Estimated GFR 44 Random Glucose 108 Calcium 8.4 D [place] Respiratory Panel [place] SEE NOTE Adenovirus (Rapid PCR) Not Detected B.pert (TEM-PCR) Not Detected B.parapertussis DNA PCR Not Detected C. pneumoniae DNA (PCR) Not Detected Coronavirus OC43 (PCR) Not Detected Coronavirus HKU1 (PCR) Not Detected Coronavirus 229E (PCR) Not Detected Coronavirus NL63 (PCR) Not Detected Human Metapneumovir PCR Not Detected Influenza A (RT-PCR) Not Detected Influenza B (RT-PCR) Not Detected M. pneumoniae (PCR) Not Detected Parainfluenza 1 (PCR) Not Detected Parainfluenza 2 (PCR) Not Detected Parainfluenza 3 (PCR) Not Detected Parainfluenza 4 (PCR) Not Detected RSV (PCR) Not Detected Entero/Rhino (PCR) Not Detected SARS-CoV-2 RNA (RT-PCR) Not Detected 01/24/22 05:46 PT INR Anion Gap Estim Creat Clear Calc Estimated GFR Random Glucose Calcium [place] 1.35 H Respiratory Panel [place] Adenovirus (Rapid PCR) B.pert (TEM-PCR) B.parapertussis DNA PCR C. pneumoniae DNA (PCR) Coronavirus OC43 (PCR) Coronavirus HKU1 (PCR) Coronavirus 229E (PCR) Coronavirus NL63 (PCR) Human Metapneumovir PCR Influenza A (RT-PCR) Influenza B (RT-PCR) M. pneumoniae (PCR) Parainfluenza 1 (PCR) Parainfluenza 2 (PCR) Parainfluenza 3 (PCR) Parainfluenza 4 (PCR) RSV (PCR) Entero/Rhino (PCR) SARS-CoV-2 RNA (RT-PCR) Assessment and Plan (1) Adult failure to thrive: Status: Acute (2) AUGUST (acute kidney injury): Status: Acute (3) Elevated INR: Status: Acute (4) Elevated lithium level: Status: Acute (5) Paroxysmal atrial flutter: Status: Acute Plan 76-year-old gentleman with past medical history significant for atrial fibrillation, dyslipidemia, hypertension, Parkinson's disease, depression on lithium presented to [facility] with symptoms of generalized weakness decreased by mouth intake, confusion and lethargy patient diagnosed to have lithium toxicity, hypotension, supratherapeutic INR, acute encephalopathy and acute kidney injury patient will be admitted to intermediate care unit for continued monitoring and treatment. Acute toxic metabolic encephalopathy More awake alert this morning less confusion. Likely due to lithium toxicity/respiratory viral panel neg, chest x-ray showed no acute abnormality, UA unremarkable, CT head showed no intracranial hemorrhage or acute abnormality follow clinical course, hold lithium repeat level 1.35 [place] toxicity Likely due to acute kidney injury, hold lithium repeat level remains high at 1.35, continue IV fluid History of depression,consult psychiatry Paroxysmal atrial flutter EKG showed ventricular paced rhythm on beta-blockers and Coumadin INR improved from 10.4 to 1.6 Restarted Coumadin and low-dose beta-melva Supratherapeutic INR of 10.4 Patient received vitamin K and fresh frozen plasma INR normalized resume Coumadin Acute kidney injury Creatinine trending down, push by mouth fluid,and IV fluid, follow renal function avoid nephrotoxins and hypotension Hypotension no evidence of sepsis likely due to decreased by mouth intake will aggressively treat with IV fluids, resume low-dose metoprolol since BP improving and heart rate trending Dyslipidemia continue statin Parkinson's disease continue Sinemet Failure to thrive /falls left anterior chest wall hematoma likely due to fall, PT eval pending Thrombocytopenia seems chronic Elevated BNP 1391 chest x-ray showed fluid overload, clinically patient not in heart failure, follow clinical course. Right lung apex 0.6 cm nodule, outpatient CT chest in 3-6 months recommended DVT prophylaxis on coumadin INR 1.6, dose adjusted Patient will need continued inpatient hospitalization due to lithium toxicity with acute toxic metabolic encephalopathy and acute renal failure requiring IV hydration and medication adjustment Quality Stroke Does the patient have a stroke diagnosis?: No VTE Prior VTE?: No VTE Risk Level:: Medical - moderate - high VTE Device Contraindication: Treatment Not Indicated VTE Drug Contraindication: Treatment Not Indicated
[2022-01-24] MEDS: Metoprolol Tartrate 25 MG TABLET PO ×2 (13:56→22:13)
[2022-01-24] MEDS: Warfarin Sodium 2.5 MG TABLET PO (17:46)
[2022-01-24] MEDS: Atorvastatin Calcium 20 MG TABLET PO (22:13)
[2022-01-24] MEDS: Gabapentin 300 MG CAPSULE 600 MG PO (22:13)
[2022-01-25 04:00] VITALS: BP 148/65; PULSE 88; RESP 18; TEMP 36.4; O2SAT 96
[2022-01-25] MEDS: Lactated Ringers 1,000 ML 80 ML IVCONT (06:10)
[2022-01-25] MEDS: Levothyroxine Sodium 50 MCG TABLET PO (06:11)
[2022-01-25 06:43] LABS: INTERNATIONAL NORM RATIO 1.7 (0.9-1.1); Prothrombin Time 19.4 SEC (9.9-13.0)
[2022-01-25 06:57] LABS: Lithium 1.23 mmol/L (0.60-1.20)
[2022-01-25 07:04] LABS: Anion Gap 11 (12-20); Blood Urea Nitrogen 18 mg/dL (9-16); Calcium 8.7 mg/dL (8.4-10.2); Carbon Dioxide 21 mmol/L (22-29); Chloride 112 mmol/L (96-108); Estimated Glomerular Filt Rate 46; Glucose Random 104 mg/dL (60-115); Sodium 140 mmol/L (135-145)
[2022-01-25 07:23] VITALS: BP 115/69; PULSE 101; RESP 18; TEMP 36.7; O2SAT 99
[2022-01-25] MEDS: Carbidopa/Levodopa 25/100 TABLET 1 TAB PO ×4 (10:06→22:57)
[2022-01-25] MEDS: Metoprolol Tartrate 25 MG TABLET PO ×2 (10:06→22:57)
[2022-01-25] MEDS: Folic Acid 1 MG TABLET PO (10:06)
[2022-01-25] MEDS: buPROPion HCl XL 300 MG TAB.ER.24H PO (10:07)
[2022-01-25 11:25] VITALS: BP 105/72; PULSE 103; RESP 18; TEMP 36.8; O2SAT 93
--- NOTE | 2022-01-25 12:19 | P.CNPS_ITS ---
History of Present Illness Date of Service: t Chief Complaint: Failure to thrive Reason for Consult: [place] toxicity Requesting physician: Rose Marie Pa Discussed with referring provider: Yes Sources of Information: patient interviewed and chart reviewed HPI Narrative: The patient is a 76-year-old male, single, with limited social support, living by himself referred to Psychiatry due to lithium toxicity. The patient was admitted for altered mental status and acute kidney injury with shortness of breath. On admission, his lithium level was over 1.2, he was delirious and in no acute distress. Cut And Shoot was held. Since admission, his bleeding has been held and has been tapering down slowly. According to collateral information, the patient lives alone and on the [address] for his house, his primary caregiver provides him his medications. Apparently he has not been eating for the last days and it was unclear he was compliant with his treatment. It is clear that the patient accidentally overdosed on lithium. On interview, the patient admitted having bipolar disorder, he has delayed response and there was evident slow thought process, he stated that he carries a diagnosis of bipolar and he is psychiatrist is Dr. Veronica smith. He adamantly denies suicidal ideation. His speech was very slurred and he looked confused at times but he was pleasant and cooperative. Past Psychiatric History: As per the patient's report he has at least 2 prior admissions into the hospital he carries a diagnosis of bipolar disorder, on lithium. Medical Evaluation Reviewed: Yes Review of Systems Review of Systems Yes Unobtainable due to mental status [facility] Medical History Asthma Cardiac pacemaker in situ DJD (degenerative joint disease) High cholesterol HTN (hypertension) Hypothyroidism IBS (irritable bowel syndrome) Parkinsons Paroxysmal atrial flutter Peripheral neuropathy Psychiatric diagnosis Sick sinus syndrome Family History: Unable to fully assess Social History: Lives alone, he has very limited social support Substance History: Denies Diagnostics Vital Signs (24Hr): Vital Signs - 24 hr 01/24/22 16:00 01/24/22 20:00 01/24/22 23:37 Temperature 98.5 F 98.6 F 97.6 F Pulse Rate 101 H 94 Respiratory Rate 18 18 17 Blood Pressure 106/81 97/70 111/65 Pulse Oximetry 92 93 94 01/25/22 04:00 01/25/22 07:23 01/25/22 11:25 Temperature 97.5 F 98.1 F 98.3 F Pulse Rate 88 101 H 103 H Respiratory Rate 18 18 18 Blood Pressure 148/65 H 115/69 105/72 Pulse Oximetry 96 99 93 BMI result Body Mass Index 32.6 Labs Results: 01/22/22 15:26 01/25/22 05:52 Labs: Laboratory Results - last 48 hr 01/23/22 01/24/22 01/24/22 09:25 05:46 05:46 PT 18.1 H INR 1.6 H Sodium 141 Potassium 3.8 Chloride 114 H Carbon Dioxide 21 L Anion Gap 10 L BUN 21 H Creatinine 1.54 H Estim Creat Clear Calc 54.2 Estimated GFR 44 Random Glucose 108 Calcium 8.4 D [place]oot Respiratory Panel [place] SEE NOTE Adenovirus (Rapid PCR) Not Detected B.pert (TEM-PCR) Not Detected B.parapertussis DNA PCR Not Detected C. pneumoniae DNA (PCR) Not Detected Coronavirus OC43 (PCR) Not Detected Coronavirus HKU1 (PCR) Not Detected Coronavirus 229E (PCR) Not Detected Coronavirus NL63 (PCR) Not Detected Human Metapneumovir PCR Not Detected Influenza A (RT-PCR) Not Detected Influenza B (RT-PCR) Not Detected M. pneumoniae (PCR) Not Detected Parainfluenza 1 (PCR) Not Detected Parainfluenza 2 (PCR) Not Detected Parainfluenza 3 (PCR) Not Detected Parainfluenza 4 (PCR) Not Detected RSV (PCR) Not Detected Entero/Rhino (PCR) Not Detected SARS-CoV-2 RNA (RT-PCR) Not Detected 01/24/22 01/25/22 01/25/22 05:46 05:52 05:52 PT 19.4 H INR 1.7 H Sodium 140 Potassium 4.0 Chloride 112 H Carbon Dioxide 21 L Anion Gap 11 L BUN 18 H Creatinine 1.49 H Estim Creat Clear Calc 56.0 Estimated GFR 46 Random Glucose 104 Calcium 8.7 [place] 1.35 H Respiratory Panel [place] Adenovirus (Rapid PCR) B.pert (TEM-PCR) B.parapertussis DNA PCR C. pneumoniae DNA (PCR) Coronavirus OC43 (PCR) Coronavirus HKU1 (PCR) Coronavirus 229E (PCR) Coronavirus NL63 (PCR) Human Metapneumovir PCR Influenza A (RT-PCR) Influenza B (RT-PCR) M. pneumoniae (PCR) Parainfluenza 1 (PCR) Parainfluenza 2 (PCR) Parainfluenza 3 (PCR) Parainfluenza 4 (PCR) RSV (PCR) Entero/Rhino (PCR) SARS-CoV-2 RNA (RT-PCR) 01/25/22 05:52 PT INR Sodium Potassium Chloride Carbon Dioxide Anion Gap BUN Creatinine Estim Creat Clear Calc Estimated GFR Random Glucose Calcium [place] 1.23 H Respiratory Panel [place] Adenovirus (Rapid PCR) B.pert (TEM-PCR) B.parapertussis DNA PCR C. pneumoniae DNA (PCR) Coronavirus OC43 (PCR) Coronavirus HKU1 (PCR) Coronavirus 229E (PCR) Coronavirus NL63 (PCR) Human Metapneumovir PCR Influenza A (RT-PCR) Influenza B (RT-PCR) M. pneumoniae (PCR) Parainfluenza 1 (PCR) Parainfluenza 2 (PCR) Parainfluenza 3 (PCR) Parainfluenza 4 (PCR) RSV (PCR) Entero/Rhino (PCR) SARS-CoV-2 RNA (RT-PCR) Imaging Radiology Impressions: ITS Impressions Chest X-Ray 01/22/22 10:42 IMPRESSION: No evidence for acute disease in the chest. Low lung volumes and crowding of the central bronchovascular markings. Cervical Spine CT 01/22/22 11:17 IMPRESSION: * No intracranial hemorrhage or other acute intracranial pathology. * No fracture or traumatic subluxation in the degenerated cervical spine. * The finding of interlobular septal thickening and groundglass opacity at the lung apices is probably from cardiogenic edema. Head CT 01/22/22 11:17 IMPRESSION: * No intracranial hemorrhage or other acute intracranial pathology. * No fracture or traumatic subluxation in the degenerated cervical spine. * The finding of interlobular septal thickening and groundglass opacity at the lung apices is probably from cardiogenic edema. Abdomen/Pelvis CT 01/22/22 12:38 IMPRESSION: * A focal area of patchy opacity in subcutaneous tissues in the left prepectoral region could represent minor hemorrhage from recent trauma. Query if there is any bruising of the left chest wall. No evidence of rib fracture or pneumothorax. * Mild pulmonary emphysema and several micronodules in the right lung. Also, there is a 0.6 cm nodule of the lateral right lung apex. Based on use of Fleischner Society guidelines, recommend chest CT follow-up in the next 3-6 months. * Cardiomegaly, pulmonary edema and small pleural effusions. * No acute skeletal findings. Chest CT 01/22/22 12:38 IMPRESSION: * A focal area of patchy opacity in subcutaneous tissues in the left prepectoral region could represent minor hemorrhage from recent trauma. Query if there is any bruising of the left chest wall. No evidence of rib fracture or pneumothorax. * Mild pulmonary emphysema and several micronodules in the right lung. Also, there is a 0.6 cm nodule of the lateral right lung apex. Based on use of Fleischner Society guidelines, recommend chest CT follow-up in the next 3-6 months. * Cardiomegaly, pulmonary edema and small pleural effusions. * No acute skeletal findings. Mental Status Exam Mental Status Exam Patient Appearance: Disheveled Patient Orientation: Person, Place and Situation Level of Consciousness: Awake Patient Behavior: Passive Mood Description: Withdrawn Affect Description: Constricted Ability to Follow Directions: Fair Speech Pattern: Slurred, Impoverished and Long Pauses Hallucinations: None Delusions: Not Present Thought Process: Illogical and Distracted Thought Content: positive for [place] and positive for Poverty of Content Judgement: Poor Medications Medications Current Medications Acetaminophen (Acetaminophen 325 Mg Tablet) 650 mg PO Q6H PRN PRN Reason: Pain, Mild (Pain Scale 1-3) Albuterol Sulfate (Albuterol Sulfate 90 Mcg 8 Gm Inhaler) 2 puff INHALE Q4H PRN PRN Reason: Wheezing Atorvastatin Calcium (Atorvastatin Calcium 20 Mg Tablet) 20 mg PO BEDTIME [facility] Last Admin: 01/24/22 22:13 Dose: 20 mg Documented by: Bupropion HCl (Bupropion Hcl Xl 300 Mg Tab.Er.24h) 300 mg PO DAILY [facility] Last Admin: 01/25/22 10:07 Dose: 300 mg Documented by: Carbidopa/Levodopa (Carbidopa/Levodopa 25/100 Tablet) 1 tab PO QID [facility] Last Admin: 01/25/22 10:06 Dose: 1 tab Documented by: Folic Acid (Folic Acid 1 Mg Tablet) 1 mg PO DAILY [facility] Last Admin: 01/25/22 10:06 Dose: 1 mg Documented by: Gabapentin (Gabapentin 300 Mg Capsule) 600 mg PO BEDTIME [facility] Last Admin: 01/24/22 22:13 Dose: 600 mg Documented by: Lactated Ringer's (Lr) 1,000 mls @ 80 mls/hr IVCONT .[id number] [facility] Last Admin: 01/25/22 06:10 Dose: 80 mls/hr Documented by: Levothyroxine Sodium (Levothyroxine Sodium 50 Mcg Tablet) 50 mcg PO DAILY@0600 [facility] Last Admin: 01/25/22 06:11 Dose: 50 mcg Documented by: Metoprolol Tartrate (Metoprolol Tartrate 25 Mg Tablet) 25 mg PO BID [facility]; Protocol Last Admin: 01/25/22 10:06 Dose: 25 mg Documented by: Ondansetron HCl (Ondansetron Hcl 4 Mg/2 Ml Vial) 4 mg IVPUSH Q8H PRN PRN Reason: Nausea and Vomiting Pharmacy Consult (Consult Rx Perform Med Rec) 1 each MISCELLANE ONCE PRN PRN Reason: Consult order Sodium Chloride (0.9 % Sodium Chloride Flush 3 Ml Syringe) 3 ml IVFLUSH QSHIFT [facility] Last Admin: 01/25/22 10:07 Dose: Not Given Documented by: Warfarin Sodium (Warfarin Sodium 2.5 Mg Tablet) 2.5 mg PO DAILY@1800 [facility] Last Admin: 01/24/22 17:46 Dose: 2.5 mg Documented by: Allergies Allergies Allergy/AdvReac Type Severity Reaction Status Date / Time methylphenidate [Ritalin] Allergy Unknown Verified 04/17/20 00:00 ragweed pollen [RAGWEED] Allergy Unknown SNEEZE Unverified 05/15/20 15:13 tizanidine [Zanaflex] Allergy Unknown Verified 04/17/20 00:00 Assessment & Plan Assessment & Plan (1) Adult failure to thrive: Status: Acute Code(s): R62.7 - Adult failure to thrive (2) AUGUST (acute kidney injury): Status: Acute Code(s): N17.9 - Acute kidney failure, unspecified (3) Elevated INR: Status: Acute Code(s): R79.1 - Abnormal coagulation profile (4) Elevated lithium level: Status: Acute Code(s): R79.89 - Other specified abnormal findings of blood chemistry (5) SOB (shortness of breath) on exertion: Status: Acute Code(s): R06.02 - Shortness of breath (6) HTN (hypertension): Status: Acute Code(s): I10 - Essential (primary) hypertension (7) Cardiac pacemaker in situ: Status: Acute Code(s): Z95.0 - Presence of cardiac pacemaker (8) Paroxysmal atrial flutter: Status: Acute Code(s): I48.92 - Unspecified atrial flutter (9) [place] intoxication: Status: Acute Code(s): T56.891A - Toxic effect of other metals, accidental (unintentional), initial encounter Plan The patient is an elderly male with a history of bipolar disorder who was admitted into the hospital for acute mental status changes with a prior or symptoms of poor appetite and later lithium toxicity. At this moment the patient remains with a high level of lithium and his speech is slurred that is but of pneumonic of lithium toxicity. Plan 1. The patient still delirious, whole psychiatric medications until he clears. 2. Gather collateral information. We will try to contact Dr. Martin her home and ask for more information. 3. If the patient gets agitated tried lorazepam at low doses. 4. Psychiatry will follow. I spent __45____ minutes with the patient and/or on the patient floor today, greater than?50% of which was spent counseling/coordinating care. Informed Consent: further education needed
--- NOTE | 2022-01-25 12:37 | P.PNIM_ITS ---
Subjective Subjective Date of Service: 01/25/22 Interval History: Patient remains pleasantly confused although aware of place and person, denies pain, no nausea, no vomiting , complaining of thirst no acute events overnight. Review of Systems [employer] no headache no dizziness CVS no chest pain GI no nausea no vomiting, no diarrhea, no abdominal pain Review of Systems: Yes all other systems are reviewed and are negative Physical Exam Vital Signs: Vital Signs: Last Vital Signs Temp 98.3 F 01/25/22 11:25 Pulse 103 H 01/25/22 11:25 Resp 18 01/25/22 11:25 BP 105/72 01/25/22 11:25 Pulse Ox 93 01/25/22 11:25 BMI result Body Mass Index 32.6 Const: Other: General awake alert pleasantly confused, no acute distress.? HEENT pupils equal round reactive to light and accommodation, no nystagmus Neck? supple no JVD. CVS? regular rate rhythm, Respiratory lungs clear to auscultation, no respiratory distress, no wheeze, no rhonchi. Gastrointestinal abdomen obese, soft, nontender, bowel sounds audible, no guarding , no rigidity. Extremities no? edema, long nails Neuro nonfocal, speech slurred, confused, moving all 4 extremity, speech clear. Skin large bruise left anterior chest wall Psych poor insight Musculoskeletal no deformity Objective Data Active Medications Acetaminophen (Acetaminophen 325 Mg Tablet) 650 mg PO Q6H PRN PRN Reason: Pain, Mild (Pain Scale 1-3) Albuterol Sulfate (Albuterol Sulfate 90 Mcg 8 Gm Inhaler) 2 puff INHALE Q4H PRN PRN Reason: Wheezing Atorvastatin Calcium (Atorvastatin Calcium 20 Mg Tablet) 20 mg PO BEDTIME [facility] Last Admin: 01/24/22 22:13 Dose: 20 mg Documented by: ANTOIC Bupropion HCl (Bupropion Hcl Xl 300 Mg Tab.Er.24h) 300 mg PO DAILY [facility] Last Admin: 01/25/22 10:07 Dose: 300 mg Documented by: ROBERT Carbidopa/Levodopa (Carbidopa/Levodopa 25/100 Tablet) 1 tab PO QID [facility] Last Admin: 01/25/22 10:06 Dose: 1 tab Documented by: ROBERT Folic Acid (Folic Acid 1 Mg Tablet) 1 mg PO DAILY [facility] Last Admin: 01/25/22 10:06 Dose: 1 mg Documented by: ROBERT Gabapentin (Gabapentin 300 Mg Capsule) 600 mg PO BEDTIME [facility] Last Admin: 01/24/22 22:13 Dose: 600 mg Documented by: ANTLUCIE Lactated Ringer's (Lr) 1,000 mls @ 80 mls/hr IVCONT .[id number] [facility] Last Admin: 01/25/22 06:10 Dose: 80 mls/hr Documented by: MURPHY Levothyroxine Sodium (Levothyroxine Sodium 50 Mcg Tablet) 50 mcg PO DAILY@0600 [facility] Last Admin: 01/25/22 06:11 Dose: 50 mcg Documented by: MURPHY Metoprolol Tartrate (Metoprolol Tartrate 25 Mg Tablet) 25 mg PO BID [facility]; Protocol Last Admin: 01/25/22 10:06 Dose: 25 mg Documented by: ROBERT Ondansetron HCl (Ondansetron Hcl 4 Mg/2 Ml Vial) 4 mg IVPUSH Q8H PRN PRN Reason: Nausea and Vomiting Pharmacy Consult (Consult Rx Perform Med Rec) 1 each MISCELLANE ONCE PRN PRN Reason: Consult order Sodium Chloride (0.9 % Sodium Chloride Flush 3 Ml Syringe) 3 ml IVFLUSH QSHIFT [facility] Last Admin: 01/25/22 10:07 Dose: Not Given Documented by: ROBERT Non-Admin Reason: IV Running Warfarin Sodium (Warfarin Sodium 2.5 Mg Tablet) 2.5 mg PO DAILY@1800 [facility] Last Admin: 01/24/22 17:46 Dose: 2.5 mg Documented by: FELI Labs CBC & Chem 7: 01/22/22 15:26 01/25/22 05:52 Labs: Laboratory Results - last 24 hr 01/25/22 01/25/22 01/25/22 05:52 05:52 05:52 PT 19.4 H INR 1.7 H Anion Gap 11 L Estim Creat Clear Calc 56.0 Estimated GFR 46 Random Glucose 104 Calcium 8.7 [place] 1.23 H Assessment and Plan (1) Adult failure to thrive: Status: Acute (2) AUGUST (acute kidney injury): Status: Acute (3) Elevated INR: Status: Acute (4) Elevated lithium level: Status: Acute (5) Paroxysmal atrial flutter: Status: Acute Plan 76-year-old gentleman with past medical history significant for atrial fibrilla tion, dyslipidemia, hypertension, Parkinson's disease, depression on lithium presented to [facility] with symptoms of generalized weakness decreased by mouth intake, confusion and lethargy patient diagnosed to have lithium toxicity, hypotension, supratherapeutic INR, acute encephalopathy and acute kidney injury patient will be admitted to intermediate care unit for continued monitoring and treatment. Acute toxic metabolic encephalopathy More awake alert remains pleasantly confused with slurred speech Likely due to lithium toxicity respiratory viral panel neg, chest x-ray showed no acute abnormality, UA unremarkable, CT head showed no intracranial hemorrhage or acute abnormality follow clinical course, hold lithium repeat level 1.23 [place] toxicity Likely due to acute kidney injury, hold lithium repeat level remains high at 1.23 continue IV fluid History of bipolar disorder Case discussed with psychiatry Dr. Ledesma, he feels patient remains confused, delirious due to lithium toxicity he recommend not to resume lithium and he will follow patient with medical team Paroxysmal atrial flutter EKG showed ventricular paced rhythm on beta-blockers and Coumadin INR improved from 10.4 to 1.7 Restarted Coumadin dose adjusted, continue beta-melva low-dose at home was on Toprol-XL 50 mg daily Supratherapeutic INR of 10.4 Patient received vitamin K and fresh frozen plasma INR normalized resume Coumadin Acute kidney injury Creatinine trending down, push by mouth fluid,and IV fluid, follow renal function avoid nephrotoxins and hypotension Hypotension Resolved, no evidence of sepsis likely due to decreased by mouth intake continue IV fluid, and low-dose metoprolol Dyslipidemia continue statin Parkinson's disease continue Sinemet Failure to thrive /falls left anterior chest wall hematoma likely due to fall, PT eval pending Thrombocytopenia seems chronic Elevated BNP 1391 chest x-ray showed fluid overload, clinically patient not in heart failure, likely due to atrial fibrillation, follow clinical course. Right lung apex 0.6 cm nodule, outpatient CT chest in 3-6 months recommended DVT prophylaxis on coumadin INR 1.7, dose adjusted Patient will need continued inpatient hospitalization due to lithium toxicity with acute toxic metabolic encephalopathy and acute renal failure requiring IV hydration and medication adjustment. Quality Stroke Does the patient have a stroke diagnosis?: No VTE Prior VTE?: No VTE Risk Level:: Medical - moderate - high VTE Device Contraindication: Treatment Not Indicated VTE Drug Contraindication: Treatment Not Indicated
[2022-01-25 15:54] VITALS: BP 105/70; PULSE 101; RESP 18; TEMP 36.4; O2SAT 94
[2022-01-25] MEDS: Warfarin Sodium 2.5 MG TABLET PO (17:46)
[2022-01-25 20:00] VITALS: BP 104/73; PULSE 102; RESP 18; TEMP 36.7; O2SAT 94
[2022-01-25] MEDS: Atorvastatin Calcium 20 MG TABLET PO (22:57)
[2022-01-25] MEDS: Gabapentin 300 MG CAPSULE 600 MG PO (22:57)
[2022-01-25 23:52] VITALS: BP 116/70; PULSE 89; RESP 18; TEMP 36.3; O2SAT 95
[2022-01-26] MEDS: 0.9 % Sodium Chloride Flush 3 ML SYRINGE IVFLUSH ×2 (00:17→08:32)
[2022-01-26 03:48] VITALS: BP 117/70; PULSE 94; RESP 17; TEMP 37.1; O2SAT 94
[2022-01-26 05:45] LABS: INTERNATIONAL NORM RATIO 1.8 (0.9-1.1)
[2022-01-26] MEDS: Levothyroxine Sodium 50 MCG TABLET PO (06:14)
[2022-01-26 07:45] VITALS: BP 107/74; PULSE 101; RESP 18; TEMP 37.2; O2SAT 94
[2022-01-26] MEDS: Carbidopa/Levodopa 25/100 TABLET 1 TAB PO ×4 (08:32→21:20)
[2022-01-26] MEDS: buPROPion HCl XL 300 MG TAB.ER.24H PO (08:32)
[2022-01-26] MEDS: Metoprolol Tartrate 25 MG TABLET PO ×2 (08:32→21:20)
[2022-01-26] MEDS: Folic Acid 1 MG TABLET PO (08:32)
[2022-01-26] MEDS: Dextrose 5 % and Lactated Ring 1,000 ML 100 ML IVCONT (08:32)
[2022-01-26 08:43] LABS: Anion Gap 13 (12-20); Blood Urea Nitrogen 18 mg/dL (9-16); Calcium 8.8 mg/dL (8.4-10.2); Carbon Dioxide 20 mmol/L (22-29); Chloride 112 mmol/L (96-108); Creatinine Clr Calc Pharmacy 59.7; Estimated Glomerular Filt Rate 49; Glucose Random 114 mg/dL (60-115); Potassium 4.3 mmol/L (3.3-5.1); Sodium 141 mmol/L (135-145)
[2022-01-26 08:44] LABS: Folate 19.9 ng/mL (> or = 4.0); Vitamin B12 257 pg/mL (200-900)
[2022-01-26 11:27] VITALS: BP 102/70; PULSE 95; RESP 18; TEMP 37.3; O2SAT 96
--- NOTE | 2022-01-26 12:22 | P.PNIM_ITS ---
Subjective Subjective Date of Service: 01/26/22 Interval History: Patient awake alert to place, noted to be moaning intermittently, denies pain on further questioning wants to be left alone refused breakfast. 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 supple no JVD. CVS? regular rate rhythm, Respiratory lungs clear to auscultation, no respiratory distress, no wheeze, no rhonchi. Gastrointestinal abdomen obese, soft, nontender, bowel sounds audible, no guarding , no rigidity. Extremities no? edema, long nails Neuro nonfocal, speech slurred,, moving all 4 extremity, speech clear. Skin large bruise left anterior chest wall/left arm Psych poor insight Musculoskeletal no deformity Objective Data Active Medications Acetaminophen (Acetaminophen 325 Mg Tablet) 650 mg PO Q6H PRN PRN Reason: Pain, Mild (Pain Scale 1-3) Albuterol Sulfate (Albuterol Sulfate 90 Mcg 8 Gm Inhaler) 2 puff INHALE Q4H PRN PRN Reason: Wheezing Atorvastatin Calcium (Atorvastatin Calcium 20 Mg Tablet) 20 mg PO BEDTIME REPLACED BY [facility] Last Admin: 01/25/22 22:57 Dose: 20 mg Documented by: GOVIND Bupropion HCl (Bupropion Hcl Xl 300 Mg Tab.Er.24h) 300 mg PO DAILY REPLACED BY [facility] Last Admin: 01/26/22 08:32 Dose: 300 mg Documented by: CAROLIN Carbidopa/Levodopa (Carbidopa/Levodopa 25/100 Tablet) 1 tab PO QID REPLACED BY [facility] Last Admin: 01/26/22 08:32 Dose: 1 tab Documented by: CAROLIN Folic Acid (Folic Acid 1 Mg Tablet) 1 mg PO DAILY REPLACED BY [facility] Last Admin: 01/26/22 08:32 Dose: 1 mg Documented by: CAROLIN Gabapentin (Gabapentin 300 Mg Capsule) 600 mg PO BEDTIME REPLACED BY [facility] Last Admin: 01/25/22 22:57 Dose: 600 mg Documented by: GOVIND Dextrose/Lactated Ringer's (D5lr) 1,000 mls @ 100 mls/hr IVCONT .Q10H REPLACED BY [facility] Last Admin: 01/26/22 08:32 Dose: 100 mls/hr Documented by: CAROLIN Levothyroxine Sodium (Levothyroxine Sodium 50 Mcg Tablet) 50 mcg PO DAILY@0600 REPLACED BY [facility] Last Admin: 01/26/22 06:14 Dose: 50 mcg Documented by: JEFF Metoprolol Tartrate (Metoprolol Tartrate 25 Mg Tablet) 25 mg PO BID REPLACED BY [facility]; Protocol Last Admin: 01/26/22 08:32 Dose: 25 mg Documented by: CAROLIN Ondansetron HCl (Ondansetron Hcl 4 Mg/2 Ml Vial) 4 mg IVPUSH Q8H PRN PRN Reason: Nausea and Vomiting Pharmacy Consult (Consult Rx Perform Med Rec) 1 each MISCELLANE ONCE PRN PRN Reason: Consult order Sodium Chloride (0.9 % Sodium Chloride Flush 3 Ml Syringe) 3 ml IVFLUSH QSHIFT REPLACED BY [facility] Last Admin: 01/26/22 08:32 Dose: 3 ml Documented by: CAROLIN Warfarin Sodium (Warfarin Sodium 2.5 Mg Tablet) 2.5 mg PO DAILY@1800 REPLACED BY [facility] Last Admin: 01/25/22 17:46 Dose: 2.5 mg Documented by: ROBERT Labs CBC & Chem 7: 01/22/22 15:26 01/26/22 05:09 Labs: Laboratory Results - last 24 hr 01/25/22 01/26/22 01/26/22 05:52 05:09 05:09 PT 21.0 H INR 1.8 H Anion Gap 13 Estim Creat Clear Calc 59.7 Estimated GFR 49 Random Glucose 114 Calcium 8.8 Vitamin B12 257 Folate 19.9 Assessment and Plan (1) Adult failure to thrive: Status: Acute (2) AUGUST (acute kidney injury): Status: Acute (3) Elevated INR: Status: Acute (4) Elevated lithium level: Status: Acute (5) Paroxysmal atrial flutter: Status: Acute Plan 76-year-old gentleman with past medical history significant for atrial fibrilla tion, dyslipidemia, hypertension, Parkinson's disease, depression on lithium presented to [facility] with symptoms of generalized weakness decreased by mouth intake, confusion and lethargy patient diagnosed to have lithium toxicity, hypotension, supratherapeutic INR, acute encephalopathy and acute kidney injury patient will be admitted to intermediate care unit for continued monitoring and treatment. Acute toxic metabolic encephalopathy awake alert , moaning this a.m. but on questioning denies pain, remains pleasantly confused with slurred speech Likely due to lithium toxicity respiratory viral panel neg, chest x-ray showed no acute abnormality, UA unremarkable, CT head showed no intracranial hemorrhage or acute abnormality follow clinical course, hold lithium repeat level 1.23/stable electrolytes and renal function improved [place] toxicity hold lithium repeat level remains high at 1.23 continue IV fluid History of bipolar disorder Case discussed with psychiatry Dr. Ledesma, he recommend not to resume lithium and he will follow patient with medical team Paroxysmal atrial flutter EKG showed ventricular paced rhythm on beta-blockers and Coumadin INR improved from 10.4 to 1.8, will increase dose of Coumadin to 3 mg to keep INR between 2-3 continue beta-melva for rate control Supratherapeutic INR of 10.4 Patient received vitamin K and fresh frozen plasma INR improved continue Coumadin Acute kidney injury Resolved, continue IV hydration for decreased by mouth intake Hypotension Resolved, no evidence of sepsis likely due to decreased by mouth intake continue IV fluid, and low-dose metoprolol Dyslipidemia continue statin Parkinson's disease continue Sinemet Failure to thrive /falls left anterior chest wall hematoma likely due to fall, PT eval when clinically stable Thrombocytopenia seems chronic Elevated BNP 1391 chest x-ray showed fluid overload, clinically patient not in heart failure, likely due to atrial fibrillation, follow clinical course. Right lung apex 0.6 cm nodule, outpatient CT chest in 3-6 months recommended DVT prophylaxis on coumadin INR 1.8, dose adjusted Patient will need continued inpatient hospitalization due to lithium toxicity with acute toxic metabolic encephalopathy on IV hydration and medication adjustment. Quality Stroke Does the patient have a stroke diagnosis?: No VTE Prior VTE?: No VTE Risk Level:: Medical - moderate - high VTE Device Contraindication: Treatment Not Indicated VTE Drug Contraindication: Treatment Not Indicated
[2022-01-26 16:00] VITALS: BP 118/77; PULSE 103; RESP 20; TEMP 37.2; O2SAT 92
[2022-01-26] MEDS: Warfarin Sodium 3 MG TABLET PO (18:00)
[2022-01-26 19:37] VITALS: BP 114/78; PULSE 103; RESP 19; TEMP 37.3; O2SAT 94
[2022-01-26] MEDS: Dextrose 5 % and Lactated Ring 1,000 ML 80 ML IVCONT (21:11)
[2022-01-26] MEDS: Atorvastatin Calcium 20 MG TABLET PO (21:20)
[2022-01-26] MEDS: Gabapentin 300 MG CAPSULE 600 MG PO (21:20)
[2022-01-26 23:34] VITALS: BP 124/81; PULSE 103; RESP 19; TEMP 36.7; O2SAT 99
[2022-01-27] VITALS (20 sets, daily range): BP systolic 82–129; BP diastolic 53–91; PULSE 90–109; RESP 9–28; TEMP 34.7–39.6; O2SAT 90–100; BMI 32.6
--- NOTE | 2022-01-27 | ECG_ITS ---
Test Reason : r/o MO Blood Pressure : / mmHG Vent. Rate : 109 BPM Atrial Rate : 109 BPM P-R Int : 136 ms QRS Dur : 206 ms QT Int : 444 ms P-R-T Axes : 000 -32 114 degrees QTc Int : 597 ms Ventricular-paced rhythm Abnormal ECG When compared to the previous EKG of No significant changes seen Referred By: Reid Solis Electronically Signed By:FAYE HIGGINS MD
[2022-01-27 06:55] LABS: INTERNATIONAL NORM RATIO 2.6 (0.9-1.1)
[2022-01-27] MEDS: Levothyroxine Sodium 50 MCG TABLET PO (06:58)
--- NOTE | 2022-01-27 09:30 | P.PNIM_ITS ---
Subjective Subjective Date of Service: 01/28/22 Interval History: This morning patient noted to have a temp of 101.1 degrees and was found unresponsive by nurse, pupils are not reactive, when I arrived to see the patient he was noted to be gasping therefore initiated Code Blue Review of Systems Review of Systems: Yes Unobtainable due to mental status Physical Exam Vital Signs: Vital Signs: Last Vital Signs Temp 101.1 F H 01/27/22 07:57 Pulse 103 H 01/27/22 07:57 Resp 20 01/27/22 07:57 BP 109/69 01/27/22 07:57 Pulse Ox 97 01/27/22 07:57 BMI result Body Mass Index 32.6 Const: Other: General noted to be gasping, moving extremities/pulses present/unresponsive to verbal stimuli/sternal rub Neck no JVD. CVS tachy regular Respiratory lungs diminished Gastrointestinal abdomen obese Extremities no pitting edema/long nails. Neuro unresponsive/moving extremities Skin left anterior chest wall ecchymosis/bilateral foot bruises Objective Data Active Medications Acetaminophen (Acetaminophen 325 Mg Tablet) 650 mg PO Q6H PRN PRN Reason: Pain, Mild (Pain Scale 1-3) Albuterol Sulfate (Albuterol Sulfate 90 Mcg 8 Gm Inhaler) 2 puff INHALE Q4H PRN PRN Reason: Wheezing Atorvastatin Calcium (Atorvastatin Calcium 20 Mg Tablet) 20 mg PO BEDTIME [facility] Last Admin: 01/26/22 21:20 Dose: 20 mg Documented by: CIERRA Bupropion HCl (Bupropion Hcl Xl 300 Mg Tab.Er.24h) 300 mg PO DAILY [facility] Last Admin: 01/26/22 08:32 Dose: 300 mg Documented by: CAROLIN Carbidopa/Levodopa (Carbidopa/Levodopa 25/100 Tablet) 1 tab PO QID [facility] Last Admin: 01/26/22 21:20 Dose: 1 tab Documented by: CIERRA Folic Acid (Folic Acid 1 Mg Tablet) 1 mg PO DAILY [facility] Last Admin: 01/26/22 08:32 Dose: 1 mg Documented by: CAROLIN Gabapentin (Gabapentin 300 Mg Capsule) 600 mg PO BEDTIME [facility] Last Admin: 01/26/22 21:20 Dose: 600 mg Documented by: CIERRA Levothyroxine Sodium (Levothyroxine Sodium 50 Mcg Tablet) 50 mcg PO DAILY@0600 [facility] Last Admin: 01/27/22 06:58 Dose: 50 mcg Documented by: CIERRA Metoprolol Tartrate (Metoprolol Tartrate 25 Mg Tablet) 25 mg PO BID ZACK; Francheska rotocol Last Admin: 01/26/22 21:20 Dose: 25 mg Documented by: CIERRA Ondansetron HCl (Ondansetron Hcl 4 Mg/2 Ml Vial) 4 mg IVPUSH Q8H PRN PRN Reason: Nausea and Vomiting Pharmacy Consult (Consult Rx Perform Med Rec) 1 each MISCELLANE ONCE PRN PRN Reason: Consult order Sodium Chloride (0.9 % Sodium Chloride Flush 3 Ml Syringe) 3 ml IVFLUSH QSHIFT [facility] Last Admin: 01/27/22 03:12 Dose: Not Given Documented by: MATEO Non-Admin Reason: IV Running Labs CBC & Chem 7: 01/28/22 05:37 01/28/22 05:37 Labs: Laboratory Results - last 24 hr 01/27/22 06:06 PT 30.0 H INR 2.6 H Assessment and Plan (1) Adult failure to thrive: Status: Acute (2) AUGUST (acute kidney injury): Status: Acute (3) Elevated INR: Status: Acute (4) Elevated lithium level: Status: Acute (5) Paroxysmal atrial flutter: Status: Acute Plan 76-year-old gentleman with past medical history significant for atrial fibrillation, dyslipidemia, hypertension, Parkinson's disease, depression on lithium presented to [facility] with symptoms of generalized weakness decreased by mouth intake, confusion and lethargy patient diagnosed to have lithium toxicity, hypotension, supratherapeutic INR, acute encephalopathy and acute kidney injury patient admitted to intermediate care unit for continued monitoring and treatment. Patient admitted to medical floor with a diagnosis of Acute toxic metabolic encephalopathy likely related to lithium toxicity, AUGUST, extensive workup including respiratory viral panel neg, chest x-ray showed no acute abnormality, UA unremarkable, CT head showed no intracranial hemorrhage or acute abnormality, patient treated with IV fluids renal function normalize lithium level came down to 1.23, patient became more awake alert was answering questions appropriately up until yesterday he knew he is at [facility], was moaning most of the day yesterday but denied pain, and wanted to be left alone vitals remain stable, patient evaluated by psych and was recommended Not to resume lithium, This morning patient found unresponsive, had pulse, but was gasping for air/acrocyanosis noted Unresponsiveness with Acute hypoxic respiratory failure Noted to have oxygenation of 71%, heart rate around 100 paced rhythm, Code blue called patient intubated at bedside by corn miller, was noted to have coffee- ground emesis Question aspiration pneumonia/GI bleed due to gastritis PUD in the backdrop of Coumadin and thrombocytopenia Will transfer patient to ICU, DC Coumadin further care as per corn miller History of bipolar disorder Case discussed with psychiatry Dr. Ledesma, he recommend not to resume lithium and he will follow patient with medical team Paroxysmal atrial flutter EKG showed ventricular paced rhythm on beta-blockers and Coumadin INR improved from 10.4 with use of vitamin, INR 2.4 today Hold Coumadin due to GI bleed continue beta-melva for rate control Acute kidney injury Resolved, status post IV fluid likely pre renal due to decreased by mouth intake prior to admission Dyslipidemia on statin Parkinson's disease on Sinemet Thrombocytopenia seems chronic Elevated BNP 1391 chest x-ray showed fluid overload, clinically patient did not appear in heart failure, likely due to atrial fibrillation, need close follow-up Right lung apex 0.6 cm nodule, outpatient CT chest in 3-6 months recommended Patient is being transferred to intensive care unit due to acute hypoxic respiratory failure under care of . Quality Stroke Does the patient have a stroke diagnosis?: No VTE Prior VTE?: No VTE Risk Level:: Medical - moderate - high VTE Device Contraindication: Treatment Not Indicated VTE Drug Contraindication: Treatment Not Indicated
[2022-01-27] MEDS: propofoL 1,000 MG/100 ML VIAL 13.86 MG IVCONT ×3 (10:15→23:49)
[2022-01-27] MEDS: 0.9 % Sodium Chloride Flush 3 ML SYRINGE IVFLUSH ×2 (10:25→16:35)
--- NOTE | 2022-01-27 11:25 | P.PCNCC_ITS ---
Procedures Date of Service Date of Service: 01/27/22 Intubation Intubation Comments: PROCEDURE NOTE:? Endotracheal intubation. INDICATIONS:? Gross ventilatory failure. Anesthesia:? Zemuron 50mg. [place] was [place] [facility] [place]. On my arrival he was grossly hypoventilating with periods of apnea. He was being oxygenated via Ambu bag, with and without PPV. BP was about 100 systolic. The patient obviously needed to be intubated. On first attempt at tracheal intubation without medication, the patient vomited copious black maroon liquid, about 200cc, which was immediately sxn'ed. The patient did not grossly aspirate. He was still breathing. We then gave him 50 mg Zemuron and he was easily intubated with a MAC 3, 8.0 ETT, direct vision, atraumatic. The glottis was stained with black vomitus, but there was no reflux of any such fluid into the ETT. Initial quantitative ETCO2 was 44, and was stable in the post-intubation period. VS were stable. Sat was 100% on ambu ventilation. The patient was transferred down to the ICU. The patient fernie the procedure well with no complications.? Post op chest x-ray showed the ETT in good position. Consent for Procedure: Emergent-no informed consent obtained
--- NOTE | 2022-01-27 11:43 | W.PM.CCHP ---
Procedures Date of Service Date of Service: 01/27/22 Central Line Placement Right SC: Central Line Comments: PROCEDURE:? Insertion right subclavian central venous line. INDICATION:? Acute resp failure, s/p near respiratory arrest. For IV access and cardioresp monitoring.? ANESTHESIA:? Local plus IV sedation PROCEDURE:? Left side had a pacemaker in place. Vascular ultrasound was used to examine the right side.? A large compressible subclavian vein was noted in both the infraclavicular and supraclavicular approach. The subclavian artery was also noted in the infraclavicular approach. The right chest and neck areas were widely prepped and draped in full sterile fashion.? Local anesthesia was applied to the subclavian area.? The right subclavian vein was cannulated on the 2nd pass of the 18 gauge thin wall under US guidance.? The wire was threaded and then a 7 Estonian, 16 cm triple-lumen catheter was advanced into the vein up to the hub via the Seldinger technique without incident.? There was good blood return x3.? Sutured x 3 with 3-0 silk.? A Biopatch and dry sterile dressing were applied. Postop chest x-ray showed the line and ETT in perfect postion, with no PTX. The patient fernie the procedure well without complications. Consent for Procedure: Emergent-no informed consent obtained
--- NOTE | 2022-01-27 12:16 | PM.CCPN ---
Subjective Subjective Date of Service: 01/27/22 Interval History: Mr. Cloud was transferred to the ICU this morning after emergent tracheal intubation on [facility]. The patient is a 76 yo M with PMHx of Parkinson?s disease, depression/bipolar disease on [place], atrial fibrillation/flutter on Coumadin, PPM for sick sinus syndrome with paroxysmal atrial flutter, asthma, DJD, high cholesterol, HTN, hypothyroidism, irritable bowel syndrome, and peripheral neuropathy. Prior echocardiogram Mar, 2021 showed normal LV systolic function with impaired relaxation, normal RV, normal Dopplers, top-normal RV systolic pressure The patient lives in an apartment.? A friend of his -- a woman named Stacy Tolentino -- lives on the floor above him and is his emergency contact and HCP (which we have a copy of).? She told me that his only living relative is a son who the patient has no contact with.? At baseline, the patient is independent and drives a car. HISTORY OF PRESENT ILLNESS: The patient was BIBA to the ED on January 22 bec of worsening weakness and FTT for last 1 - 1.5 weeks, not taking his lithium, Sinemet, and Coumadin, and hallucinating and falling at home. ED workup notable for low blood pressures, BNP of 1391, lithium level 1.95, INR 10.? Treated with IV fluids, vitamin K, FFP negative CT abdomen and chest.? He was admitted to medicine for management of hypotension, hypovolemia, AUGUST, lithium toxicity w encephalopathy, supratherapeutic INR, and failure to thrive. Over the next few days, his mental status improved and he became more appropriate as is lithium level came down.? His blood pressure and acute kidney injury improved with hydration.? INR improved and his EKG showed a paced ventricular rhythm on beta blockers.? He restarted Coumadin on January 23. Yesterday he was noted to be alert to place but moaning intermittently, wanted to be left alone, refused breakfast.? INR was 1.8, his dose of Coumadin was being slowly increased. This morning, the patient was found to have a temperature 101.1 degrees.? An hour later at about 9am, the patient was found unresponsive.? A code blue was called.? When I arrived, the patient was breathing and had a heart rate of approximately 100, BP about 90-100.? The patient was being given oxygen by Ambu face mask, with and without positive pressure ventilation.? He was having brief episodes of apnea.? He had gross ventilatory insufficiency and clearly needed to be intubated.? On the 1st attempt at intubation without medications, the patient vomited copious blackish-maroonish liquid GI contents, probably about 200 cc worth.? There was no clinical aspiration however, and the patient continued breathing.? He was then given Zemuron 50 mg and easily intubated without further regurgitation (see separate procedure note).? Staining of the glottis with that blackish/maroonish liquid was noted, but there was no reflux of that fluid into the endotracheal tube after intubation.? The patient was then transferred to the ICU. A central line was placed (see separate procedure).? On exam, he is sedated on the ventilator w propofol 20ug.? Breathing easy on AC 12/450/35%/+8, with RR 18, Ve 7.4L, PIP 21cm, ETCO2 31, Sat 99%.? CVBG earlier showed 7.34/33/-5.? HR 108, v-paced.? BP 102/73 on Levophed 0.08ug.? No JVD at 30 degrees.? Chest is clear to auscultation, with normal expiratory phase.? Heart tones are very soft.? I heard no murmur or gallops.? Abdomen is large and benign.? He has 1-2+ peripheral and central edema. LABORATORY DATA:? As noted below.? Notably, white count is bumped to 15, hemoglobin is 10.2, compared to 9.5 [place] 01/22; [place] [address], compared to 47,000; PT is 30/2.6, BUN/creatinine are 31/2.2, compared to 18/1.4 yesterday.? Bicarb is 22, potassium 4.7.? Phosphorus is 4.2.? Total, compared to 2.4 on 01/22.? AST is 1283, compared to 10.? Albumin is 3.4.? Lactic acid is 1.5.? Trop 45, BNP 3458.? [place] level this morning 0.99.? T My bedside ECHOCARDIOGRAM for hemodynamic monitoring:? Technically very difficult.? The only interpretable image was parasternal long axis.? LV looked globally hypokinetic, with EF maybe about 30%.? Unable to image the IVC. Post intubation CXR suggests a right mid-lung infiltrate. IMPRESSION: 1.Underlying Parkinson?s disease 2. Underlying depression/bipolar disease, on [place], with elevated lithium level on admission, likely lithium toxic 3. Underlying afib/flutter on Coumadin, with supratherapeutic level/coagulopathy on admission that was reversed.? Now back on the Coumadin w a therapeutic level. 4. PPM for sick sinus syndrome 5. Underlying hypothyroidism, on thyroxine. 6. New fever, altered MS, acute respiratory failure this morning.? Given the bloody vomitus with the therapeutic INR, my initial impression is that the patient had an UGI bleed and aspirated.? While the lack of a drop in his Hb level argues against that, he could also be dehydrated. 7. UGI bleed.? Given the lack of a major drop in his Hb, this is likely stress gastritis in the presence of a therapeutic INR.? For now, I?ve just given him high dose PPI.? No reason for an urgent EGD given that he?s stable and coagulopathic.? No reason to reverse his Coumadin given lack of gross further bleeding from his OGT.? Follow serial Hb?s. 8. Acute respiratory failure.? Likely 2? aspiration.? I?ve written him for Unasyn, altho it?s not clear that any abx are truly indicated, nikolai given the lack of significant hypoxemia. 9. Hypotension.? Could be 2? SIRS.? I?m doubtful that he?s septic.? So far I?ve given him 1L of crystalloid.? Waiting for a formal echo. 10. AUGUST.? Most likely 2? SIRS and the acute episode this morning.? He is not oliguric.? Further fluids based on the echo. 11. Thrombocytopenia.? Labs show this is chronic, dating back as far as 2018.? Don?t know the cause.? Old chart unaccessible at this time. 12. I don?t believe he is septic. ADDENDUM: Formal ECHO by robotic technician, viewed and interpreted by me.? Findings: 1. LV shows severe global hypokinesis, EF 10-15%.? LV cavity looks sl. dilated. 2. RV is top normal sized, also hypokinetic. 3. 2-3+ MR 4. 2+ TR w CWD measuring 2.35 m/sec (gradient 22mm). 5. IVC 2.5 cm with minimal insp collapse.? RVSP estimate 37mm (which underestimates PVR bec of the low EF). BNP earlier was markedly increased compared to previous levels.? Troponins are 45 and repeat is 40. This is a surprise, given the earlier echo last year.? Not sure what the cause is.? The BNP is consistent with the echo findings.? Trops are negative.? Will d/w cardiology. Critical care time (including full chart review and hospital course summary; extended d/w Dr. Pa, excluding procedures):? 2:15+ hrs. Critical Care Time (minutes): 135 Physical Exam Vital Signs: Vital Signs: Last Vital Signs Temp 103.1 F H 01/27/22 12:00 Pulse 107 H 01/27/22 12:00 Resp 16 01/27/22 12:00 BP 98/68 01/27/22 12:00 Pulse Ox 95 01/27/22 12:00 BMI result Body Mass Index 32.6 Objective Data Labs CBC & Chem 7: 01/27/22 12:42 01/27/22 12:42 Labs: Laboratory Results - last 24 hr 01/27/22 06:06 PT 30.0 H INR 2.6 H Quality Stroke Does the patient have a stroke diagnosis?: No VTE Prior VTE?: No VTE Risk Level:: Medical - moderate - high VTE Device Contraindication: Treatment Not Indicated VTE Drug Contraindication: Treatment Not Indicated Critical Care Time Critical Care Time (minutes): 150
[2022-01-27 12:50] LABS: VBG Base Excess -5.9 mmol/L; VBG HCO3 18 mmol/L (22-26); VBG pCO2 33 mmHg; VBG pH 7.34 (7.32-7.43); VBG pO2 44 mmHg
[2022-01-27] MEDS: Pantoprazole Sodium 40 MG/10 ML VIAL 80 MG IVPUSH (12:50)
[2022-01-27] MEDS: Carbidopa/Levodopa 25/100 TABLET 1 TAB PO ×3 (12:50→22:20)
[2022-01-27] MEDS: Folic Acid 1 MG TABLET PO (12:51)
[2022-01-27] MEDS: Acetaminophen 325 MG TABLET 650 MG PO (12:51)
[2022-01-27 13:05] LABS: Hematocrit 36.4 % (42.0-52.0); Hemoglobin 10.2 g/dl (14.0-18.0); Lithium 0.99 mmol/L (0.60-1.20); Mean Corpuscular Hemoglobin 28.9 pg (27.0-33.0); Mean Corpuscular Volume 103.1 fL (80.0-98.0); Mean Platelet Volume 12.9 fL (9.4-12.4); Red Blood Count 3.53 X10*6/uL (4.60-5.80); Red Cell Distribution Width 16.2 % (11.0-16.0); White Blood Count 15.3 X10*3/uL (4.8-10.8)
[2022-01-27 13:06] LABS: NRBC Pct Auto 2.5 /100WBC (0.0-0.2); Platelet Count 87 X10*3/uL (160-400)
[2022-01-27 13:10] LABS: Lactic Acid 1.5 mmol/L (0.5-2.0)
[2022-01-27 13:21] LABS: Albumin Level 3.4 g/dL (3.5-5.0); Anion Gap 13 (12-20); Aspartate Amino Transferase 1283 U/L (5-37); Bilirubin Total 3.1 mg/dL (0.0-1.0); Calcium 8.3 mg/dL (8.4-10.2); Carbon Dioxide 22 mmol/L (22-29); Chloride 112 mmol/L (96-108); Creatinine Clr Calc Pharmacy 36.8; Estimated Glomerular Filt Rate 28; Glucose Random 97 mg/dL (60-115); Magnesium 2.5 mg/dL (1.6-2.6); Phosphorus 4.2 mg/dL (2.7-4.5); Potassium 4.7 mmol/L (3.3-5.1); Sodium 142 mmol/L (135-145)
--- NOTE | 2022-01-27 13:35 | MHC.CLN ---
RE: CONSULT PT IS CURRENTLY INTUBATED AND SEDATED IF TF NEEDED; RECOMMEND PROMOTE AT MAX GOAL RATE 70ML/HR WITH 240ML FREE WATER FLUSHES Q 6 HRS TO PROVIDE 1680KCALS (2046KCALS WITH SEDATION (24KCALS/KG BASED ON IBW), 105G PROTEIN (1.2G/KG), 2369ML TOTAL WATER FROM FORMULA AND FLUSHES (27.5ML/KG) MONITOR TOLERANCE, RESIDUALS AND LYTES WILL UPDATE CARDIAC DIET TO NPO D/T S/P INTUBATION SEE ALSO FULL CLINICAL NUTRITION ASSESSMENT
[2022-01-27 13:38] LABS: Alanine Aminotransferase 154 U/L (0-40); Alkaline Phosphatase 126 U/L (39-117); Blood Urea Nitrogen 31 mg/dL (9-16)
--- NOTE | 2022-01-27 14:21 | CA_ITS ---
Transthoracic Echocardiogram Patient (Last, First, Middle): Louie Cloud C Gender: Male Date of : 1945 Age: 76 Procedure Date: 01/27/2022 Procedure Type: Transthoracic Echocardiogram Location: ICU Height: 187.96 cm Weight: 115.21 kg BSA: 2.41 m2 Heart Rate: bpm BP: 104 / 67 mmHg History Department Chair: Referring MD: Reid Solis MD Sanforizing Machine Operator: Fly Martini MD Symptoms: refractory hypotension with acute resp failure Study Quality: Fair ECG Rhythm: Ventriculary paced rhythm Conclusions: - 1. Mildly dilated left ventricle with mild LVH with severely reduced LV ejection fraction at 15-20% 2. Mild biatrial enlargement 3. Normal cardiac valvular Doppler 4. No gross pericardial effusion Findings Procedure Information Contrast agent, definity, is being given per protocol without apparent complications. Left Ventricle Mildly increased left ventricular cavity size. There is mildly increased left ventricular wall thickness. The left ventricular systolic function is severely decreased. The visually estimated ejection fraction is between 15 20%. There is severe global hypokinesis. There is paradoxical septal motion consistent with a right ventricular pacemaker. Diastolic function is indeterminate on the basis of available data. Right Ventricle Mildly increased right ventricular cavity size. There is a pacemaker wire seen in the right ventricle. Atria The left atrium is mildly dilated. Interatrial shunt cannot be excluded. The right atrium is likely dilated. Aortic Valve The aortic valve structure and function is likely normal. There is no aortic valve stenosis. There is no aortic valve regurgitation. Mitral Valve Normal mitral valve structure and function. There is trace mitral valve regurgitation. There is no mitral valve stenosis. Pulmonic Valve The pulmonic valve was not well visualized. Tricuspid Valve Likely normal tricuspid valve structure and function. There is mild tricuspid valve regurgitation. Great Vessels The pulmonary artery was not well visualized. There is mild dilatation of the ascending aorta measuring 3.80 cm. Venous The inferior vena cava is mildly dilated and does not collapse with inspiration. Patient is on positive-pressure ventilation and therefore right atrial pressures are difficult to determine Pericardium/Pleural There is no evidence of pericardial effusion. Prior Study Comparison Significant changes compared to prior study dated: 04/16/2021. LV systolic function is markedly reduced, with pattern that could suggest stress-induced cardiomyopathy Measurements 2D Linear Measurements IVSd: 1.37 0.6-0.9/0.6-1.0 cm LVIDd: 5.92 3.9-5.3/4.2-5.9 cm LVIDd Index: 2.46 2.4-3.2/2.2-3.1 cm/m2 LVIDs: 5.15 2.0-3.6 cm LVPWd: 1.24 0.7-1.1 cm Ao Root: 4.10 2.1-3.5 cm LA Diam: 3.90 2.7-3.8/3.0-4.0 cm LAIDs Index: 1.62 1.5-2.3 cm/m2 LV Mass: 429.70 67-162/88-224 g LV Mass Index: 178.30 43-95/49-115 g/m2 LVOT Diam: 2.50 3.0+(-)1.3 cm 2D Systolic Function EF 4C: 13.80 >55% EF 2C: 18.80 >55% EF BiP: 16.70 >55% Mitral Valve MV Pk E: 0.76 MV PK A: 0.92 MV Decel Time: 75.00 E/A: 0.80 E'Lateral: 17.50 E'Medial: 4.57 E/E' Med: 16.60 E/E' Lat: 4.30 PHT: 22.00 MVA PHT: 10.00 Decel [place]: 10.14 Aortic Valve AoV Pk Navid: 0.98 AoV Mn Navid: 0.66 AoV VTI: 0.18 AoV Pk Grad: 4.00 Aov Mn Grad: 2.00 LIZZ Cont.VTI: 2.28 LVOT LVOT Pk Navid: 0.56 LVOT Mn Navid: 0.36 LVOT VTI: 0.08 LVOT Pk Grad: 1.00 LVOT Mn Grad: 1.00 LVOT Diam: 2.50 LVOT Area: 4.91 Diastolic Function MV Pk E: 0.76 MV Pk A: 0.92 E/A: 0.80 E'Medial: 4.57 E/E' Med: 16.60 E' Laterial: 17.50 E/E' Lat: 4.30 Right Ventricle TAPSE (mm): 22.00 Tricuspid Valve TR Pk Navid: 2.64 TR Pk Grad: 28.00 Great Vessels Aorta Ao Root-2D: 4.10 2.0-3.7 cm Ao Asc: 3.80 2.1-3.4 cm Pulmonary Valve PV Pk Navid: 0.64 Peak PV Grad: 2.00 Updated in Other Vendor System with Status of Final Fly Martini MD electronically signed on 01/28/2022 8:11:59 AM with status of Final
--- NOTE | 2022-01-27 14:49 | MHC.CM.PN ---
Pt transferred to ICU for urgent intubation following an episode of unresponsiveness and impending respiratory failure on IMC. Pt had been living independently with a caregiver support in the apt above prior to admission. Pt has a HCP and MOLST on file listing full supportive care options. CM to follow for changes and finalization of d/c plan
[2022-01-27] MEDS: Lactated Ringers 1,000 ML 999 ML IV (14:54)
[2022-01-27 15:02] LABS: Venous Blood Gas Refer to POC result
--- NOTE | 2022-01-27 15:31 | PHA.PROG ---
Admission Date/Time: January 22, 2022 17:27 Indication: pneumonia Weight in k.5 kg Adjusted body weight in Kg: Fay body weight in Kg: Obesity Dosing Indication % IBW: Serum Creatinine - Last 168 Hours 01/22/22 01/22/22 01/23/22 10:54 15:26 04:58 Creatinine 1.84 H 1.72 H 1.56 H 01/24/22 01/25/22 01/26/22 05:46 05:52 05:09 Creatinine 1.54 H 1.49 H 1.40 01/27/22 12:42 Creatinine 2.27 H Estimated CrCl and GFR - Last 168 Hours 01/22/22 01/22/22 01/23/22 10:54 15:26 04:58 Estim Creat Clear Calc 45.4 48.5 53.5 Estimated GFR 36 39 43 01/24/22 01/25/22 01/26/22 05:46 05:52 05:09 Estim Creat Clear Calc 54.2 56.0 59.7 Estimated GFR 44 46 49 01/27/22 12:42 Estim Creat Clear Calc 36.8 Estimated GFR 28 Vancomycin Loading Dose: 1750mg Current Vancomycin Dosing Regimen: 750mg Q24H Vancomycin Monitoring using AUC goal of 400 - 600 range with trough as surrogate marker: 508mg/L Date and Time for next Vancomycin Level to be drawn: Dr. Solis requested trough for 01/28/22 @0500, put in another trough for 01/29 @1400 Pharmacist Comments on Vancomycin Plan: Pt's renal function fluctuating, will continue to monitor. Putting in 1750mg load with trough after 1st dose per Dr. Solis's request. Vancomycin dosing will take advantage of [employer] as a clinical decision support tool that uses Bayesian modeling to calculate individual patient's pharmacokinetic parameters and forecast the patient's drug concentration time course with the target goal AUC 24 range of 400 - 600 mg/L/hr.
[2022-01-27 16:16] LABS: B Type Natriuretic Peptide 3458 pg/mL (<100); Troponin-I High Sensitivity 45.4 ng/L (<3.5-35.0)
[2022-01-27] MEDS: Piperacillin Sodium/Tazobactam 4.5 GM in 0.9 % Sodium Chloride 100 ML IV (16:31)
[2022-01-27] MEDS: buPROPion HCL 100 MG TABLET NG-TUBE ×2 (16:35→22:20)
[2022-01-27 18:42] LABS: Hematocrit 35.9 % (42.0-52.0); Hemoglobin 10.2 g/dl (14.0-18.0); Mean Corpuscular HGB Conc 28.4 g/dl (31.0-36.0); Mean Corpuscular Hemoglobin 29.3 pg (27.0-33.0); Mean Corpuscular Volume 103.2 fL (80.0-98.0); Mean Platelet Volume 12.3 fL (9.4-12.4); Red Blood Count 3.48 X10*6/uL (4.60-5.80); Red Cell Distribution Width 16.4 % (11.0-16.0); White Blood Count 16.7 X10*3/uL (4.8-10.8)
[2022-01-27 18:42] LABS: Appearance Urine CLEAR; Color Urine YELLOW; Glucose Urine UA NEG (NEG); Leukocyte Esterase Urine NEG (NEG); Nitrite Urine NEG (NEG); Specific Gravity - Urine >= 1.030 (1.005-1.025); Urine Blood 3+ (NEG); Urine Ketones NEG (NEG); Urine Protein 1+ MG/DL (NEG-TRACE)
[2022-01-27 18:50] LABS: NRBC Pct Auto 2.5 /100WBC (0.0-0.2); Platelet Count 76 X10*3/uL (160-400)
[2022-01-27 19:07] LABS: Hyaline Casts Urine 0-2 /LPF; Squamous Epithelial Cell Urine TRACE /LPF
--- NOTE | 2022-01-27 19:39 | PC.NURSE ---
Addendum entered by Hussein Hurtado RN 01/27/22 19:55: UA collected, blood cultures, and could not collect sputum yet. Original Note: Assumed care at 10:00. Patient came down from [facility] [place] intubated. New TLC placed to Right subclavian. Patient started on propofol, 20 mcg/kg/min. Patient had dark brown liquid in inline suction as well as noted in OGT small amount dark brown liquid. Placed OGT to low intermittent wall suction per MD, but scant amount out, dc/d per MD. Patient noted to be appearing obtunded with pupils sluggish 2 mm, not reacting to pain in all four extremities, discussed with MD, and turned propofol off per MD, patient noted to react to pain in all four extremities, withdraws on left, but grimaces on right, pupils reactive, grimaces and moves head, biteblock added. Patient febrile, 102.7 after tylenol, added ice packs with minimal effect. Patient had bolus of normal saline when coming from [facility], had second bolus of LR here, but stopped after 800 ccs per MD as echo was done and showed he has enough fluid. average urine output 41 cc/hour, was dark narcisa colored. BM today dark brown. bruising to left thigh left anterior chest, right posterior thigh. Feet are very cold and gnarly with fungal toenail infections, feet have weak faint palpable pulses, but seem weaker over course of day, rest of body is overwarm. Levophed titrated down see emar.
[2022-01-27] MEDS: Atorvastatin Calcium 20 MG TABLET PO (22:20)
[2022-01-27] MEDS: Metoprolol Tartrate 25 MG TABLET PO (22:20)
[2022-01-27] MEDS: Gabapentin 300 MG CAPSULE 600 MG PO (22:20)
[2022-01-27] MEDS: Pantoprazole Sodium 40 MG/10 ML VIAL IVPUSH (22:20)
[2022-01-27] MEDS: Ampicillin Sodium/Sulbactam Na 3 GM in 0.9 % Sodium Chloride 100 ML IV (23:42)
[2022-01-28] VITALS (38 sets, daily range): BP systolic 88–135; BP diastolic 50–91; PULSE 59–109; RESP 15–35; TEMP 34.7–38.8; O2SAT 91–98; BMI 35.7
[2022-01-28] MEDS: propofoL 1,000 MG/100 ML VIAL 13.86 MG IVCONT (04:21)
[2022-01-28 05:48] LABS: VBG Base Excess -4.1 mmol/L; VBG HCO3 20 mmol/L (22-26); VBG pCO2 34 mmHg; VBG pH 7.37 (7.32-7.43); VBG pO2 46 mmHg
[2022-01-28 05:53] LABS: Hemoglobin 9.7 g/dl (14.0-18.0); Mean Corpuscular Volume 102.1 fL (80.0-98.0); NRBC Pct Auto 1.2 /100WBC (0.0-0.2); PLT CLUMP 1
[2022-01-28 05:55] LABS: Hematocrit 34.3 % (42.0-52.0); Mean Corpuscular HGB Conc 28.3 g/dl (31.0-36.0); Mean Corpuscular Hemoglobin 28.9 pg (27.0-33.0); Mean Platelet Volume 12.1 fL (9.4-12.4); Red Blood Count 3.36 X10*6/uL (4.60-5.80); Red Cell Distribution Width 16.2 % (11.0-16.0)
[2022-01-28 05:57] LABS: Platelet Count 75 X10*3/uL (160-400); White Blood Count 14.5 X10*3/uL (4.8-10.8)
[2022-01-28 06:00] LABS: INTERNATIONAL NORM RATIO 2.8 (0.9-1.1); Prothrombin Time 32.7 SEC (9.9-13.0)
[2022-01-28 06:03] LABS: Lactic Acid 1.3 mmol/L (0.5-2.0)
[2022-01-28 06:14] LABS: Alanine Aminotransferase 187 U/L (0-40); Albumin Level 3.1 g/dL (3.5-5.0); Alkaline Phosphatase 111 U/L (39-117); Anion Gap 12 (12-20); Aspartate Amino Transferase 804 U/L (5-37); Bilirubin Total 3.4 mg/dL (0.0-1.0); Blood Urea Nitrogen 34 mg/dL (9-16); Calcium 8.3 mg/dL (8.4-10.2); Carbon Dioxide 21 mmol/L (22-29); Chloride 115 mmol/L (96-108); Creatinine Clr Calc Pharmacy 42.5; Estimated Glomerular Filt Rate 32; Glucose Random 87 mg/dL (60-115); Magnesium 2.2 mg/dL (1.6-2.6); Phosphorus 3.5 mg/dL (2.7-4.5); Potassium 3.8 mmol/L (3.3-5.1); Sodium 144 mmol/L (135-145); Total Protein 5.4 g/dL (6.5-8.0)
[2022-01-28 06:37] LABS: Venous Blood Gas Refer to POC result
[2022-01-28] MEDS: Ampicillin Sodium/Sulbactam Na 3 GM in 0.9 % Sodium Chloride 100 ML IV ×3 (06:43→18:34)
[2022-01-28] MEDS: Levothyroxine Sodium 50 MCG TABLET PO (06:45)
[2022-01-28] MEDS: Carbidopa/Levodopa 25/100 TABLET 1 TAB PO ×2 (08:27→12:19)
[2022-01-28] MEDS: Folic Acid 1 MG TABLET PO (08:27)
[2022-01-28] MEDS: Acetaminophen 325 MG TABLET 650 MG PO (08:27)
[2022-01-28] MEDS: Metoprolol Tartrate 25 MG TABLET PO (08:27)
[2022-01-28] MEDS: buPROPion HCL 100 MG TABLET NG-TUBE (08:27)
[2022-01-28 08:54] LABS: Procalcitonin 0.42 ng/mL
--- NOTE | 2022-01-28 10:32 | PM.CNCAR ---
History of Present Illness History of Present Illness Date of Service: 01/28/22 Requesting physician: Reid Solis Consult reason: other (LV systolic dysfunction, cardiopulmonary arrest) Chief complaint: Failure to thrive Narrative: I was requested to see Louie in cardiology consultation today as post cardiopulmonary arrest yesterday he had an echocardiogram which showed new LV systolic dysfunction with LVEF of 15-20%. Patient has been admitted to the hospital with failure to thrive and noncompliance with medications with lithium toxicity, acute kidney injury as well as elevated INR levels. He has been treated and yesterday developed cardiopulmonary arrest, exact etiology was unclear however he was intubated insulin transferred to the unit. Subsequently a bedside echo was performed which showed LVEF of 15-20%. Patient had continues ventricular pacing and 90-100 range. Has been having temperature spikes up to 103 as well as hypertension requiring vasopressors. Currently sedated using propofol fall. No other history is available from the patient. History obtained from the chart. Patient with prior history of cardiac pacemaker in-situ for sick sinus syndrome and subsequently has developed AV block, paroxysmal atrial flutter/fibrillation, recently having increasing episodes, was at 1 point time in flecainide therapy but this was discontinued due to increased ventricular pacing and wide QRS complexes. He has prior history of known normal LV systolic function with no evidence of known coronary disease in the past. Recently he has been having increasing episodes of atrial fibrillation although not all of these episodes have been well detected by the device. I did interrogate the device at bedside and he was noted to be in atrial flutter with fast heart rate with atrial tracking and ventricular pacing leading to high ventricular rate. I switched his mode from DDDR to DDIR leading to immediate reduction in ventricular rate 110 going down to ventricularly paced at 60 beats per minute. Pacemaker assessment also did not show any significant cardiac arrhythmias at the time of his event, most suggestive that this appears to be a respiratory event Review of Systems Review of Systems: Yes unobtainable due to endotracheal tube PMFSH Past Medical History Medical History Asthma Cardiac pacemaker in situ DJD (degenerative joint disease) High cholesterol HTN (hypertension) Hypothyroidism IBS (irritable bowel syndrome) Parkinsons Paroxysmal atrial flutter Peripheral neuropathy Psychiatric diagnosis Sick sinus syndrome Social History Social History Alcohol intake: current Alcohol intake frequency: a few times a week Alcohol type: beer Patient Tobacco Use Status: Former Tobacco user Currently Displaying Signs/Symptoms of Drug Intoxication Withdrawal: No Advance Directives: Yes Advance Directives on File: Yes Advance Directives Date on File: 03/17/21 service: No Current occupational status: disabled Meds Allergies Allergy/AdvReac Type Severity Reaction Status Date / Time methylphenidate [Ritalin] Allergy Unknown Verified 04/17/20 00:00 ragweed pollen [RAGWEED] Allergy Unknown SNEEZE Unverified 05/15/20 15:13 tizanidine [Zanaflex] Allergy Unknown Verified 04/17/20 00:00 Active Medications: Current Medications Acetaminophen (Acetaminophen 325 Mg Tablet) 650 mg PO Q6H PRN PRN Reason: Pain, Mild (Pain Scale 1-3) Last Admin: 01/28/22 08:27 Dose: 650 mg Documented by: Albuterol Sulfate (Albuterol Sulfate 90 Mcg 8 Gm Inhaler) 2 puff INHALE Q4H PRN PRN Reason: Wheezing Atorvastatin Calcium (Atorvastatin Calcium 20 Mg Tablet) 20 mg PO BEDTIME [facility] Last Admin: 01/27/22 22:20 Dose: 20 mg Documented by: Bupropion HCl (Bupropion Hcl 100 Mg Tablet) 100 mg NG-TUBE TID [facility] Last Admin: 01/28/22 08:27 Dose: 100 mg Documented by: Carbidopa/Levodopa (Carbidopa/Levodopa 25/100 Tablet) 1 tab PO QID [facility] Last Admin: 01/28/22 08:27 Dose: 1 tab Documented by: Folic Acid (Folic Acid 1 Mg Tablet) 1 mg PO DAILY [facility] Last Admin: 01/28/22 08:27 Dose: 1 mg Documented by: Gabapentin (Gabapentin 300 Mg Capsule) 600 mg PO BEDTIME [facility] Last Admin: 01/27/22 22:20 Dose: 600 mg Documented by: Propofol (Diprivan) 1,000 mg in 100 mls @ 0 mls/hr IVCONT .Q0M [facility]; Protocol Last Titration: 01/28/22 09:51 Dose: Infused Documented by: Norepinephrine Bitartrate (Levophed) 8 mg in 250 mls @ 0 mls/hr IVCONT .Q0M [facility]; Protocol Last Titration: 01/28/22 09:06 Dose: 0.05 mcg/kg/min, 10.83 mls/hr Documented by: Ampicillin Sodium/Sulbactam (Sodium 3 gm/ Sodium Chloride) 100 mls @ 200 mls/hr IV Q6H [facility] Stop: 01/31/22 00:00 Last Infusion: 01/28/22 08:33 Dose: Infused Documented by: Levothyroxine Sodium (Levothyroxine Sodium 50 Mcg Tablet) 50 mcg PO DAILY@0600 [facility] Last Admin: 01/28/22 06:45 Dose: 50 mcg Documented by: Metoprolol Tartrate (Metoprolol Tartrate 25 Mg Tablet) 25 mg PO BID [facility]; Protocol Last Admin: 01/28/22 08:27 Dose: 25 mg Documented by: Ondansetron HCl (Ondansetron Hcl 4 Mg/2 Ml Vial) 4 mg IVPUSH Q8H PRN PRN Reason: Nausea and Vomiting Pantoprazole Sodium (Pantoprazole Sodium 40 Mg/10 Ml Vial) 40 mg IVPUSH Q12H [facility] Last Admin: 01/27/22 22:20 Dose: 40 mg Documented by: Pharmacy Consult (Consult Rx Perform Med Rec) 1 each MISCELLANE ONCE PRN PRN Reason: Consult order Sodium Chloride (0.9 % Sodium Chloride Flush 3 Ml Syringe) 3 ml IVFLUSH QSHIFT [facility] Last Admin: 01/28/22 08:36 Dose: Not Given Documented by: Home Medications Medication Instructions Recorded Confirmed Last Taken Type bupropion HCl 300 mg 24 hr tablet, 300 mg PO QAM 02/23/21 01/22/22 Unknown History extended release gabapentin 300 mg capsule 600 mg PO BEDTIME 02/23/21 01/22/22 Unknown History levothyroxine 50 mcg capsule 50 mcg PO DAILY 02/23/21 01/22/22 Unknown History lithium carbonate 300 mg capsule 300 mg PO BID 02/23/21 01/22/22 Unknown History warfarin 1 mg tablet 1 mg PO Q48H 02/23/21 01/22/22 Unknown History warfarin 5 mg tablet 5 mg PO DAILY 02/23/21 01/22/22 Unknown History carbidopa 25 mg-levodopa 100 mg 1 tab PO QID 10/20/21 01/22/22 Unknown History tablet metoprolol succinate 50 mg 50 mg PO DAILY 10/20/21 01/22/22 Unknown History tablet,extended release 24 hr albuterol sulfate 90 mcg/actuation 2 puff INHALATION Q4H PRN 01/22/22 01/22/22 Unknown History aerosol inhaler atorvastatin 20 mg tablet 20 mg PO BEDTIME 01/22/22 01/22/22 Unknown History folic acid 1 mg tablet 1 tab PO DAILY 01/22/22 01/22/22 Unknown History Physical Exam Vital Signs: Vital Signs: Last Vital Signs Temp 98.4 F 01/28/22 10:00 Pulse 60 01/28/22 10:00 Resp 15 01/28/22 10:00 BP 91/58 L 01/28/22 10:00 Pulse Ox 96 01/28/22 10:00 BMI result Body Mass Index 35.7 Const: General: other (Sedated and intubated) Nutritional Appearance: obese HEENT: Head: Yes normocephalic and Yes atraumatic Neck: Neck: Yes trachea midline, Yes supple and Yes other (Difficult to evaluate JVD, endotracheal tube in place) Resp: Effort & Inspection: normal respiratory effort Auscultation: clear to auscultation bilaterally Cardio: Rate: regular rate Rhythm: regular rhythm Heart sounds: S1 normal heart sound present, S2 normal heart sound present, no click, no gallops and no murmurs GI: Inspection: Yes obesity Auscultation: normal bowel sounds Skin: General skin exam: no rashes or lesions noted Neuro: General: other (Unable to assess) Extrem: General: Yes no clubbing, cyanosis or edema Objective Labs and Meds Result diagrams: 01/28/22 05:37 01/28/22 05:37 Lab results: Laboratory Results - last 24 hr 01/27/22 01/27/22 01/27/22 12:42 12:42 12:42 WBC 15.3 H RBC 3.53 L Hgb 10.2 L Hct 36.4 L MCV 103.1 H MCH 28.9 MCHC 28.0 L RDW 16.2 H Plt Count 87 L D MPV 12.9 H Absolute Nucleated RBC 0.380 H Nucleated RBC % (auto) 2.5 H PT INR VBG pH VBG pCO2 VBG pO2 VBG HCO3 VBG O2 Saturation VBG Base Excess Sodium 142 Potassium 4.7 Chloride 112 H Carbon Dioxide 22 Anion Gap 13 BUN 31 H D Creatinine 2.27 H Estim Creat Clear Calc 36.8 Estimated GFR 28 Random Glucose 97 Lactic Acid Calcium 8.3 L Phosphorus 4.2 Magnesium 2.5 Total Bilirubin 3.1 H AST 1283 H ALT 154 H Alkaline Phosphatase 126 H D Troponin I High Sens B-Natriuretic Peptide Total Protein 6.0 L Albumin 3.4 L Procalcitonin Urine Color Urine Appearance Urine pH Ur Specific [place] Urine Protein Urine Glucose (UA) Urine Ketones Urine Blood Urine Nitrite Ur Leukocyte Esterase Urine RBC Urine WBC Ur Squamous Epith Cells Urine Bacteria Hyaline Casts [place] 0.99 01/27/22 01/27/22 01/27/22 12:42 12:42 12:42 WBC RBC Hgb Hct MCV MCH MCHC RDW Plt Count MPV Absolute Nucleated RBC Nucleated RBC % (auto) PT INR VBG pH 7.34 VBG pCO2 33 VBG pO2 44 VBG HCO3 18 L VBG O2 Saturation 63.0 VBG Base Excess -5.9 Sodium Potassium Chloride Carbon Dioxide Anion Gap BUN Creatinine Estim Creat Clear Calc Estimated GFR Random Glucose Lactic Acid 1.5 Calcium Phosphorus Magnesium Total Bilirubin AST ALT Alkaline Phosphatase Troponin I High Sens 45.4 H D B-Natriuretic Peptide 3458 H Total Protein Albumin Procalcitonin Urine Color Urine Appearance Urine pH Ur Specific [place] Urine Protein Urine Glucose (UA) Urine Ketones Urine Blood Urine Nitrite Ur Leukocyte Esterase Urine RBC Urine WBC Ur Squamous Epith Cells Urine Bacteria Hyaline Casts [place] 01/27/22 01/27/22 01/27/22 17:20 18:00 18:34 WBC 16.7 H RBC 3.48 L Hgb 10.2 L Hct 35.9 L MCV 103.2 H MCH 29.3 MCHC 28.4 L RDW 16.4 H Plt Count 76 L MPV 12.3 Absolute Nucleated RBC 0.420 H Nucleated RBC % (auto) 2.5 H PT INR VBG pH VBG pCO2 VBG pO2 VBG HCO3 VBG O2 Saturation VBG Base Excess Sodium Potassium Chloride Carbon Dioxide Anion Gap BUN Creatinine Estim Creat Clear Calc Estimated GFR Random Glucose Lactic Acid Calcium Phosphorus Magnesium Total Bilirubin AST ALT Alkaline Phosphatase Troponin I High Sens 40.0 H B-Natriuretic Peptide Total Protein Albumin Procalcitonin Urine Color YELLOW Urine Appearance CLEAR Urine pH 6.0 Ur Specific [place] >= 1.030 H Urine Protein 1+ H Urine Glucose (UA) NEG Urine Ketones NEG Urine Blood 3+ H Urine Nitrite NEG Ur Leukocyte Esterase NEG Urine RBC 10-14 H Urine WBC 1-4 Ur Squamous Epith Cells TRACE Urine Bacteria NONE Hyaline Casts 0-2 [place] 01/28/22 01/28/22 01/28/22 05:37 05:37 05:37 WBC 14.5 H RBC 3.36 L Hgb 9.7 L Hct 34.3 L MCV 102.1 H MCH 28.9 MCHC 28.3 L RDW 16.2 H Plt Count 75 L MPV 12.1 Absolute Nucleated RBC 0.180 H Nucleated RBC % (auto) 1.2 H PT INR VBG pH VBG pCO2 VBG pO2 VBG HCO3 VBG O2 Saturation VBG Base Excess Sodium 144 Potassium 3.8 Chloride 115 H Carbon Dioxide 21 L Anion Gap 12 BUN 34 H Creatinine 2.05 H Estim Creat Clear Calc 42.5 Estimated GFR 32 Random Glucose 87 Lactic Acid 1.3 Calcium 8.3 L Phosphorus 3.5 Magnesium 2.2 Total Bilirubin 3.4 H AST 804 H ALT 187 H Alkaline Phosphatase 111 Troponin I High Sens B-Natriuretic Peptide Total Protein 5.4 L Albumin 3.1 L Procalcitonin Urine Color Urine Appearance Urine pH Ur Specific [place] Urine Protein Urine Glucose (UA) Urine Ketones Urine Blood Urine Nitrite Ur Leukocyte Esterase Urine RBC Urine WBC Ur Squamous Epith Cells Urine Bacteria Hyaline Casts [place] 01/28/22 01/28/22 01/28/22 05:37 05:37 05:40 WBC RBC Hgb Hct MCV MCH MCHC RDW Plt Count MPV Absolute Nucleated RBC Nucleated RBC % (auto) PT 32.7 H INR 2.8 H VBG pH 7.37 VBG pCO2 34 VBG pO2 46 VBG HCO3 20 L VBG O2 Saturation 67.0 VBG Base Excess -4.1 Sodium Potassium Chloride Carbon Dioxide Anion Gap BUN Creatinine Estim Creat Clear Calc Estimated GFR Random Glucose Lactic Acid Calcium Phosphorus Magnesium Total Bilirubin AST ALT Alkaline Phosphatase Troponin I High Sens B-Natriuretic Peptide Total Protein Albumin Procalcitonin 0.42 Urine Color Urine Appearance Urine pH Ur Specific [place] Urine Protein Urine Glucose (UA) Urine Ketones Urine Blood Urine Nitrite Ur Leukocyte Esterase Urine RBC Urine WBC Ur Squamous Epith Cells Urine Bacteria Hyaline Casts [place] Imaging Radiologist's impression: Impressions Chest X-Ray 01/27/22 11:17 IMPRESSION: -ET tubes 3.3 cm above sonia. -Orogastric tube below diaphragm overlying stomach. -Right central venous line tip mid SVC. -Right perihilar patchy airspace opacities, new from 01/22/2022. No effusion. Assessment and Plan (1) Respiratory arrest: Status: Acute Patient's yesterday his acute event appears to be respiratory arrest rising cardiac rest as are no significant ventricular arrhythmias noted. Pacemaker was constantly pacing at that point time. He does have underlying atrial flutter with inappropriate tracking of the atrial activity and ventricular pacing yesterday. This was reprogrammed. Continue manage respiratory arrest event as per the ICU team. May have developed some aspiration event yesterday around the acute event. Management as per the primary team. (2) Atrial flutter: Status: Acute Persistent atrial flutter, unknown duration but appears to be persistent atrial flutter at this point time. Rate is controlled as patient has complete heart block and currently ventricularly pacer dependent. In the past has been on oral anticoagulation warfarin and if there is no contraindication continue warfarin to maintain target INR between 2 and 3. In the past has benefited with rhythm control approach, however given his multiple acute situation right now will not pursue rhythm control as is rate is adequately controlled. (3) Hypotension: Status: Acute Hypotension in this elderly gentleman with new onset LV systolic dysfunction and apparently his central venous pressures are elevated as per the intensive care unit team. However he does not appear to be in cardiogenic pulmonary edema at this point time. He also cerebral episode and is responsive to vasopressors. It is a combination distributed of and possible cardiogenic cause of his hypertension. However at this point time would try to taper his vaso dilator read drugs such as probable fall as plan is to extubate him. Continue vasopressor therapy for now. At this point time I do not think that patient has issues with low forward stroke volume but this possible and would not given to be remain at this may further potentially his hypotension. Will continue monitor clinically. If he develops significant pulmonary edema may require inotropics support at that point in time. (4) Cardiac pacemaker in situ: Status: Acute Cardiac pacemaker in-situ with constant ventricular pacing at this point time. Pacemaker was reprogrammed from DDDR to DDIR to reduce atrial tracking and inappropriate ventricular pacing. Pacemaker is working appropriately with good ventricular pacing thresholds at this point in time. Ventricular pacing greater than 99% of the time. (5) Cardiomyopathy: Status: Acute New onset cardiomyopathy, most likely related to constant RV pacing and pacing induced cardiomyopathy, component of stress-induced cardiomyopathy cannot be entirely ruled out given his acute event yesterday. For now his ventricular pacemaker has been reprogrammed but he still continuously ventricularly pacing. Continue to provide supportive treatment at this point in time. He is currently hypertensive and cannot add any neurohormonal modulation. Does not appear to be in florid pulmonary edema clinically and would avoid diuretic regimen at this point in time. Continue maintain euvolemic status Will continue to follow with you. Greater than 45 minutes was spent in managing his complex care Procedures Date of Service Date of Service: 01/28/22
--- NOTE | 2022-01-28 11:02 | MHC.CLN ---
F/U PT REMAINS INTUBATED AND SEDATED DISCUSSED AT ROUNDS WITH MD; POSSIBLE EXTUBATION TODAY IF TF NEEDED; RECOMMEND PROMOTE AT MAX GOAL RATE 70ML/HR WITH 240ML FREE WATER FLUSHES Q 6 HRS TO PROVIDE 1680KCALS (1863KCALS WITH SEDATION; 22 KCALS/KG BASED ON IBW), 105G PROTEIN (1.2G/KG), 2369ML TOTAL WATER FROM FORMULA AND FLUSHES (27.5ML/KG) MONITOR TOLERANCE, RESIDUALS AND LYTES
[2022-01-28] MEDS: Pantoprazole Sodium 40 MG/10 ML VIAL IVPUSH (11:04)
--- NOTE | 2022-01-28 12:19 | PM.GICN ---
History of Present Illness Data of Consult Service Date: 01/28/22 Requesting physician: Reid Solis Primary Care Provider: Manjit Roy MD HPI Reason for consult: coffee ground gastric output 76-year-old gentleman with past medical history of atrial fibrillation on Coumadin, history of Parkinson's disease, hypothyroidism, depression on lithium, hypertension who I am seeing for assessment for coffee ground stomach output. No hx from patient, info from ICU team and chart review Patient was admitted with lethragy and weakness, falls and confusion 01/22/22. Patient was noted to have elevated INr and eelvated BNP with bruising/hematoma of antrior chest wall as well as elevated [place] levels Imagig with no acute findings but chest wall bruising noted. He seemed to be improving but yesterday he spiked a temp and became unresponsive, code blue called and he was intubated. 200 cc of coffee colored, dark emesis was suctioned. an ECHO was done revealing LV with severe global hypokinesis, EF 10-15%--had been normal 04/18 although his HGB is stable concern is further bleeding risk as he needs anti coagulation, as cardioogy saw patient nad found he was in atrial flutter. Pacemaker has been reset. Of note patient seems to have had chronic thrombocytopenia, CT scan did not reveal any evidence of cirrhosis or splenomegaly, also he has high MCV, which may be nutritional or possibly due to alcohol use, myelodysplasia Review of Systems Review of Systems: Yes unobtainable due to endotracheal tube and Unobtainable due to mental condition PMFSH Past Medical History Medical History Asthma Cardiac pacemaker in situ DJD (degenerative joint disease) High cholesterol HTN (hypertension) Hypothyroidism IBS (irritable bowel syndrome) Parkinsons Paroxysmal atrial flutter Peripheral neuropathy Psychiatric diagnosis Sick sinus syndrome Family History Pertinent family history: unable to obtain Social History Social History Alcohol intake: current Alcohol intake frequency: a few times a week Alcohol type: beer Patient Tobacco Use Status: Former Tobacco user Currently Displaying Signs/Symptoms of Drug Intoxication Withdrawal: No Advance Directives: Yes Advance Directives on File: Yes Advance Directives Date on File: 03/17/21 service: No Current occupational status: disabled Meds Allergies Allergy/AdvReac Type Severity Reaction Status Date / Time methylphenidate [Ritalin] Allergy Unknown Verified 04/17/20 00:00 ragweed pollen [RAGWEED] Allergy Unknown SNEEZE Unverified 05/15/20 15:13 tizanidine [Zanaflex] Allergy Unknown Verified 04/17/20 00:00 Active Medications: Current Medications Acetaminophen (Acetaminophen 325 Mg Tablet) 650 mg PO Q6H PRN PRN Reason: Pain, Mild (Pain Scale 1-3) Last Admin: 01/28/22 08:27 Dose: 650 mg Documented by: Albuterol Sulfate (Albuterol Sulfate 90 Mcg 8 Gm Inhaler) 2 puff INHALE Q4H PRN PRN Reason: Wheezing Atorvastatin Calcium (Atorvastatin Calcium 20 Mg Tablet) 20 mg PO BEDTIME [facility] Last Admin: 01/27/22 22:20 Dose: 20 mg Documented by: Bupropion HCl (Bupropion Hcl 100 Mg Tablet) 100 mg NG-TUBE TID [facility] Last Admin: 01/28/22 08:27 Dose: 100 mg Documented by: Carbidopa/Levodopa (Carbidopa/Levodopa 25/100 Tablet) 1 tab PO QID [facility] Last Admin: 01/28/22 08:27 Dose: 1 tab Documented by: Folic Acid (Folic Acid 1 Mg Tablet) 1 mg PO DAILY [facility] Last Admin: 01/28/22 08:27 Dose: 1 mg Documented by: Gabapentin (Gabapentin 300 Mg Capsule) 600 mg PO BEDTIME [facility] Last Admin: 01/27/22 22:20 Dose: 600 mg Documented by: Propofol (Diprivan) 1,000 mg in 100 mls @ 0 mls/hr IVCONT .Q0M [facility]; Protocol Last Titration: 01/28/22 11:49 Dose: Infused Documented by: Norepinephrine Bitartrate (Levophed) 8 mg in 250 mls @ 0 mls/hr IVCONT .Q0M [facility]; Protocol Last Titration: 01/28/22 09:06 Dose: 0.05 mcg/kg/min, 10.83 mls/hr Documented by: Ampicillin Sodium/Sulbactam (Sodium 3 gm/ Sodium Chloride) 100 mls @ 200 mls/hr IV Q6H [facility] Stop: 01/31/22 00:00 Last Infusion: 01/28/22 11:48 Dose: Infused Documented by: Levothyroxine Sodium (Levothyroxine Sodium 50 Mcg Tablet) 50 mcg PO DAILY@0600 [facility] Last Admin: 01/28/22 06:45 Dose: 50 mcg Documented by: Metoprolol Tartrate (Metoprolol Tartrate 25 Mg Tablet) 25 mg PO BID [facility]; Protocol Last Admin: 01/28/22 08:27 Dose: 25 mg Documented by: Ondansetron HCl (Ondansetron Hcl 4 Mg/2 Ml Vial) 4 mg IVPUSH Q8H PRN PRN Reason: Nausea and Vomiting Pantoprazole Sodium (Pantoprazole Sodium 40 Mg/10 Ml Vial) 40 mg IVPUSH Q12H [facility] Last Admin: 01/28/22 11:04 Dose: 40 mg Documented by: Pharmacy Consult (Consult Rx Perform Med Rec) 1 each MISCELLANE ONCE PRN PRN Reason: Consult order Sodium Chloride (0.9 % Sodium Chloride Flush 3 Ml Syringe) 3 ml IVFLUSH QSHIFT [facility] Last Admin: 01/28/22 08:36 Dose: Not Given Documented by: Home Medications Medication Instructions Recorded Confirmed Last Taken Type bupropion HCl 300 mg 24 hr tablet, 300 mg PO QAM 02/23/21 01/22/22 Unknown History extended release gabapentin 300 mg capsule 600 mg PO BEDTIME 02/23/21 01/22/22 Unknown History levothyroxine 50 mcg capsule 50 mcg PO DAILY 02/23/21 01/22/22 Unknown History lithium carbonate 300 mg capsule 300 mg PO BID 02/23/21 01/22/22 Unknown History warfarin 1 mg tablet 1 mg PO Q48H 02/23/21 01/22/22 Unknown History warfarin 5 mg tablet 5 mg PO DAILY 02/23/21 01/22/22 Unknown History carbidopa 25 mg-levodopa 100 mg 1 tab PO QID 10/20/21 01/22/22 Unknown History tablet metoprolol succinate 50 mg 50 mg PO DAILY 10/20/21 01/22/22 Unknown History tablet,extended release 24 hr albuterol sulfate 90 mcg/actuation 2 puff INHALATION Q4H PRN 01/22/22 01/22/22 Unknown History aerosol inhaler atorvastatin 20 mg tablet 20 mg PO BEDTIME 01/22/22 01/22/22 Unknown History folic acid 1 mg tablet 1 tab PO DAILY 01/22/22 01/22/22 Unknown History Physical Exam Vital Signs: Vital Signs: Last Vital Signs Temp 99.7 F 01/28/22 12:00 Pulse 60 01/28/22 12:00 Resp 24 H 01/28/22 12:00 BP 92/56 L 01/28/22 12:00 Pulse Ox 95 01/28/22 12:00 BMI result Body Mass Index 35.7 EXAM: GENERAL: The patient is intubated VITAL SIGNS:see workflow HEENT: Nonicteric sclerae, PERRLA, EOMI. Oropharynx clear. Moist mucous membranes. Conjunctivae appear well perfused. No thyroid mass. CHEST: Chest wall is nontender. HEART: Regular rate and rhythm without murmurs. LUNGS: Clear to auscultation bilaterally. ABDOMEN: Soft, positive bowel sounds, nontender, no organomegaly.no flank tenderness SKIN: No rash, no excessive bruising, petechiae, or purpura. NEUROLOGIC: intubated and sedated Results Labs CBC & Chem 7: 01/28/22 05:37 01/28/22 05:37 Labs: Short CBC 01/27/22 01/27/22 01/28/22 Range/Units 12:42 18:34 05:37 WBC 15.3 H 16.7 H 14.5 H (4.8-10.8) X10*3/uL Hgb 10.2 L 10.2 L 9.7 L (14.0-18.0) g/dl Hct 36.4 L 35.9 L 34.3 L (42.0-52.0) % Plt Count 87 L D 76 L 75 L (160-400) X10*3/uL BMP 01/27/22 01/28/22 12:42 05:37 Sodium 142 144 Potassium 4.7 3.8 Chloride 112 H 115 H Carbon Dioxide 22 21 L BUN 31 H D 34 H Creatinine 2.27 H 2.05 H Calcium 8.3 L 8.3 L Liver Function 01/27/22 01/28/22 Range/Units 12:42 05:37 Total Bilirubin 3.1 H 3.4 H (0.0-1.0) mg/dL AST 1283 H 804 H (5-37) U/L ALT 154 H 187 H (0-40) U/L Alkaline Phosphatase 126 H D 111 (39-117) U/L Albumin 3.4 L 3.1 L (3.5-5.0) g/dL Urine 01/27/22 Range/Units 18:00 Urine Color YELLOW Urine Appearance CLEAR Urine pH 6.0 (5.0-8.0) Ur Specific [place] >= 1.030 H (1.005-1.025) Urine Protein 1+ H (NEG-TRACE) MG/DL Urine Glucose (UA) NEG (NEG) MG/DL Microbiology Microbiology Results: Microbiology 01/27/22 20:25 Sputum - Suctioned Gram Stain - Final 01/27/22 20:25 Sputum - Suctioned Sputum Culture - Preliminary Culture in progress. Assessment and Plan (1) Macrocytic anemia: Status: Acute Plan 1/ macrocytic anemia, cofee colored gastric output, may have gastritis, nutritional deficiency, alcohol history, myelodysplasia, needas anti coagulation for a-flutter PLAN: 1/ will paln for EGD today for further assessment to r/o upper Gi lesions 2/ check b12, iron studies, folate, peripheral smear, vitamin levels B1, B6, Vit C Procedures Date of Service Date of Service: 01/28/22
--- NOTE | 2022-01-28 12:39 | PM.CCPN ---
Subjective Subjective Date of Service: 01/28/22 Interval History: Mr. Cloud was transferred to the ICU yesterday after emergent tracheal intubation on IMC. The patient is a 76 yo M with PMHx of Parkinson?s disease, depression/bipolar disease on [place], atrial fibrillation/flutter on Coumadin, PPM for sick sinus syndrome, asthma, DJD, high cholesterol, HTN, hypothyroidism, irritable bowel syndrome, and peripheral neuropathy.? Labs show a long h/o thrombocytopenia, I don?t know why. Prior echocardiogram Mar, 2021 showed normal LV systolic function with impaired relaxation, normal RV, normal Dopplers, top-normal RV systolic pressure The patient lives in an apartment.? A friend of his -- a woman named Stacy Tolentino -- lives on the floor above him and is his emergency contact and HCP (which we have a copy of).? She told me that his only living relative is a son who the patient has no contact with.? At baseline, the patient is independent and drives a car. HISTORY OF PRESENT ILLNESS: The patient was BIBA to the ED on January 22 bec of worsening weakness and FTT for last 1 - 1.5 weeks, and hallucinating and falling at home.? I spoke to his PMD, Dr. Roy, this morning.? He said that the patient had been failing for about a month.? But his caregiver was giving him his medications in the exact amounts prescribed (i.e. he didn?t fail to take his meds, or take too much of his meds).? Of note, baseline creat is about 1.2.? On 01/07, lab draw at this PMD showed creat 1.5.? Hb was 11, compared to baseline of about 13-14. ED workup notable for low blood pressures, AUGUST, BNP of 1391, lithium level 1.95, INR 10.? Treated with IV fluids, vitamin K, FFP.? CT abdomen and chest were negative for important findings.? He was admitted to medicine for management of hypotension, hypovolemia, AUGUST, lithium toxicity w encephalopathy, supratherapeutic INR, and failure to thrive. Over the next few days, his mental status improved and he became more appropriate as his lithium level came down.? His blood pressure and acute kidney injury improved with hydration.? INR improved and his EKG showed a paced ventricular rhythm on beta blockers.? He restarted Coumadin on January 23. Yesterday he was noted to be alert to place but moaning intermittently, wanted to be left alone, refused breakfast.? INR was 1.8, his dose of Coumadin was being slowly increased. Yesterday morning, the patient was found to have a temperature 101.1 degrees.? An hour later at about 9am, the patient was found unresponsive.? A code blue was called.? When I arrived, the patient was breathing and had a heart rate of approximately 100, BP about 90-100.? The patient was being given oxygen by Ambu face mask.? He was having brief episodes of apnea.? He had gross ventilatory insufficiency and clearly needed to be intubated.? On the 1st attempt at intubation without medications, the patient vomited about 200cc of blackish-maroonish liquid GI contents.? There was no clinical aspiration however, and the patient continued breathing.? He was then given Zemuron 50 mg and easily intubated without further regurgitation (see separate procedure note).? Staining of the glottis with that blackish/maroonish liquid was noted, but there was no reflux of that fluid into the endotracheal tube after intubation.? The patient was then transferred to the ICU. A central line was placed (see separate procedure).? Post intubation CXR suggests a right mid-lung infiltrate.? Since then, his FiO2 has been tapered to 25%.? He?s had no further UGI bleeding, and no melena.? Hb has been stable.? He?s required low dose Levophed. We turned the propofol off this morning.? After about an hour, the patient was easily arousable and would open his eyes, but then closed his eyes and was not interactive to verbal command.? Heart rate is 61, looks like atrial flutter underneath a V-paced rhythm.? Blood pressure is 95/58 on Levophed at 0.05 mcg.? On PSV 8/25%/+8, RR is 19, Vt 400cc, Ve 7.3L, PIP 17cm, ETCO2 26mm, Sat 96%.? This morning's CVBG showed 7.37/34/-4.? No JVD at 30 degrees.? Chest is clear to auscultation, with normal expiratory phase.? Heart tones are very soft.? I heard no murmur or gallops.? Abdomen is large and benign.? He has 1-2+ peripheral and central edema. LABORATORY DATA:? As noted below.? Notably, white count is down to 14, hemoglobin down slightly to 9.7; platelet count 75K; PT is up to 32/2.8 (no Coumadin yesterday), BUN/creatinine are down to 34/2.0.? Tbili up to 3.4.? AST/ALT are down.? PCT is 0.4.? Lactic acid is 1.3.? Trop 45, BNP 3458.? [place] level yest morning 0.99. Formal ECHO by helpdesk technician yesterday: 1. LV shows dilated severe global hypokinesis, EF 15-20%. 2. RV is mildly increased size, also hypokinetic. 3. Mild biatrial enlargement. 4. Trace MR. 5. Mild TR w CWD measuring 2.6 m/sec (gradient 27mm). 6. IVC 2.5 cm with minimal insp collapse.? RVSP estimate 42mm (which underestimates PVR bec of the low EF). IMPRESSION: 1. Underlying Parkinson?s disease 2. Underlying depression/bipolar disease, on [place], with elevated lithium level on admission. 3. Underlying afib/flutter on Coumadin, with supratherapeutic level/coagulopathy on admission that was reversed.? Now back on the Coumadin w a therapeutic level. 4. PPM for sick sinus syndrome 5. Underlying hypothyroidism, on thyroxine. 6. FTT for the month prior to admission, for unclear reasons.? ? If related to the CMOP seen on yesterday?s echo. 7. New fever, altered MS, acute respiratory failure yesterday morning.? Given the bloody vomitus with the therapeutic INR, my initial impression is that the patient had an UGI bleed and aspirated.? While the lack of a drop in his Hb level argues against that, he could also be dehydrated. 8. UGI bleed.? Given the lack of a major drop in his Hb, this was likely stress gastritis in the presence of a therapeutic INR.? Another consideration is his earlier drop in hemoglobin two weeks ago, and the possibility that he was having some prior GI bleeding. ?For now, we?ve just given him high dose PPI.? Discussed at length with Dr. Gibbs and Dr. Martini. ?Given the potential benefit of cardioversion, and the consequent need for anticoagulation, we?ll do an EGD today to make sure he doesn?t have a significant ulcer.? No reason to reverse his Coumadin at this point, given lack of gross further bleeding from his OGT.? For now, plan to hold Coumadin tonight.? Follow serial Hb?s and INRs. 9. Acute respiratory failure.? Likely 2? aspiration.? I?ve written him for Unasyn, altho it?s not clear that any abx are truly indicated, nikolai given the lack of significant hypoxemia.? Mechanically, he should be extubatable today.? Hold extubation pending the EGD however. 10. CMOP.? Discussed at length with Dr. Martini. ?Most likely either rate related, or [place].? No evidence of ACS.? He might benefit from cardioversion. 11. Hypotension.? 2? either to SIRS or the CMOP.? I?m doubtful that he?s septic.? Echo indicates that he?s volume replete. 12. AUGUST.? Most likely 2? the acute episode yesterday morning and SIRS.? He is not oliguric. 13. Thrombocytopenia.? Labs show this is chronic, dating back as far as 2018.? Don?t know the cause. 14. I don?t believe he is septic. ADDENDUM:? Assisted Dr. Gibbs with EGD.? Gave propofol to facilitate the procedure and watched the entirety of the procedure.? Found to have a prominent esophageal ulcer, likely the bleeding source.? Also found esophagitis, erosive gastritis, and duodenitis.? We pulled the OG tube.? Plan will be to continue him on high-dose PPI, and start Carafate once he is extubated and able to eat.? If everything goes well, he can be reanticoagulated starting in 3 days, on Tuesday. Critical care time: ?110+ min. Critical Care Time (minutes): 110 Physical Exam Vital Signs: Vital Signs: Last Vital Signs Temp 99.7 F 01/28/22 12:00 Pulse 60 01/28/22 12:00 Resp 24 H 01/28/22 12:00 BP 92/56 L 01/28/22 12:00 Pulse Ox 95 01/28/22 12:00 BMI result Body Mass Index 35.7 Objective Data Labs CBC & Chem 7: 01/28/22 05:37 01/28/22 05:37 Labs: Laboratory Results - last 24 hr 01/27/22 01/27/22 01/27/22 12:42 12:42 12:42 WBC 15.3 H RBC 3.53 L Hgb 10.2 L Hct 36.4 L MCV 103.1 H MCH 28.9 MCHC 28.0 L RDW 16.2 H Plt Count 87 L D MPV 12.9 H Absolute Nucleated RBC 0.380 H Nucleated RBC % (auto) 2.5 H PT INR VBG pH VBG pCO2 VBG pO2 VBG HCO3 VBG O2 Saturation VBG Base Excess Sodium 142 Potassium 4.7 Chloride 112 H Carbon Dioxide 22 Anion Gap 13 BUN 31 H D Creatinine 2.27 H Estim Creat Clear Calc 36.8 Estimated GFR 28 Random Glucose 97 Lactic Acid Calcium 8.3 L Phosphorus 4.2 Magnesium 2.5 Total Bilirubin 3.1 H AST 1283 H ALT 154 H Alkaline Phosphatase 126 H D Troponin I High Sens B-Natriuretic Peptide Total Protein 6.0 L Albumin 3.4 L Procalcitonin Urine Color Urine Appearance Urine pH Ur Specific [place] Urine Protein Urine Glucose (UA) Urine Ketones Urine Blood Urine Nitrite Ur Leukocyte Esterase Urine RBC Urine WBC Ur Squamous Epith Cells Urine Bacteria Hyaline Casts [place] 0.99 01/27/22 01/27/22 01/27/22 12:42 12:42 12:42 WBC RBC Hgb Hct MCV MCH MCHC RDW Plt Count MPV Absolute Nucleated RBC Nucleated RBC % (auto) PT INR VBG pH 7.34 VBG pCO2 33 VBG pO2 44 VBG HCO3 18 L VBG O2 Saturation 63.0 VBG Base Excess -5.9 Sodium Potassium Chloride Carbon Dioxide Anion Gap BUN Creatinine Estim Creat Clear Calc Estimated GFR Random Glucose Lactic Acid 1.5 Calcium Phosphorus Magnesium Total Bilirubin AST ALT Alkaline Phosphatase Troponin I High Sens 45.4 H D B-Natriuretic Peptide 3458 H Total Protein Albumin Procalcitonin Urine Color Urine Appearance Urine pH Ur Specific [place] Urine Protein Urine Glucose (UA) Urine Ketones Urine Blood Urine Nitrite Ur Leukocyte Esterase Urine RBC Urine WBC Ur Squamous Epith Cells Urine Bacteria Hyaline Casts [place] 01/27/22 01/27/22 01/27/22 17:20 18:00 18:34 WBC 16.7 H RBC 3.48 L Hgb 10.2 L Hct 35.9 L MCV 103.2 H MCH 29.3 MCHC 28.4 L RDW 16.4 H Plt Count 76 L MPV 12.3 Absolute Nucleated RBC 0.420 H Nucleated RBC % (auto) 2.5 H PT INR VBG pH VBG pCO2 VBG pO2 VBG HCO3 VBG O2 Saturation VBG Base Excess Sodium Potassium Chloride Carbon Dioxide Anion Gap BUN Creatinine Estim Creat Clear Calc Estimated GFR Random Glucose Lactic Acid Calcium Phosphorus Magnesium Total Bilirubin AST ALT Alkaline Phosphatase Troponin I High Sens 40.0 H B-Natriuretic Peptide Total Protein Albumin Procalcitonin Urine Color YELLOW Urine Appearance CLEAR Urine pH 6.0 Ur Specific [place] >= 1.030 H Urine Protein 1+ H Urine Glucose (UA) NEG Urine Ketones NEG Urine Blood 3+ H Urine Nitrite NEG Ur Leukocyte Esterase NEG Urine RBC 10-14 H Urine WBC 1-4 Ur Squamous Epith Cells TRACE Urine Bacteria NONE Hyaline Casts 0-2 [place] 01/28/22 01/28/22 01/28/22 05:37 05:37 05:37 WBC 14.5 H RBC 3.36 L Hgb 9.7 L Hct 34.3 L MCV 102.1 H MCH 28.9 MCHC 28.3 L RDW 16.2 H Plt Count 75 L MPV 12.1 Absolute Nucleated RBC 0.180 H Nucleated RBC % (auto) 1.2 H PT INR VBG pH VBG pCO2 VBG pO2 VBG HCO3 VBG O2 Saturation VBG Base Excess Sodium 144 Potassium 3.8 Chloride 115 H Carbon Dioxide 21 L Anion Gap 12 BUN 34 H Creatinine 2.05 H Estim Creat Clear Calc 42.5 Estimated GFR 32 Random Glucose 87 Lactic Acid 1.3 Calcium 8.3 L Phosphorus 3.5 Magnesium 2.2 Total Bilirubin 3.4 H AST 804 H ALT 187 H Alkaline Phosphatase 111 Troponin I High Sens B-Natriuretic Peptide Total Protein 5.4 L Albumin 3.1 L Procalcitonin Urine Color Urine Appearance Urine pH Ur Specific [place] Urine Protein Urine Glucose (UA) Urine Ketones Urine Blood Urine Nitrite Ur Leukocyte Esterase Urine RBC Urine WBC Ur Squamous Epith Cells Urine Bacteria Hyaline Casts [place] 01/28/22 01/28/22 01/28/22 05:37 05:37 05:40 WBC RBC Hgb Hct MCV MCH MCHC RDW Plt Count MPV Absolute Nucleated RBC Nucleated RBC % (auto) PT 32.7 H INR 2.8 H VBG pH 7.37 VBG pCO2 34 VBG pO2 46 VBG HCO3 20 L VBG O2 Saturation 67.0 VBG Base Excess -4.1 Sodium Potassium Chloride Carbon Dioxide Anion Gap BUN Creatinine Estim Creat Clear Calc Estimated GFR Random Glucose Lactic Acid Calcium Phosphorus Magnesium Total Bilirubin AST ALT Alkaline Phosphatase Troponin I High Sens B-Natriuretic Peptide Total Protein Albumin Procalcitonin 0.42 Urine Color Urine Appearance Urine pH Ur Specific [place] Urine Protein Urine Glucose (UA) Urine Ketones Urine Blood Urine Nitrite Ur Leukocyte Esterase Urine RBC Urine WBC Ur Squamous Epith Cells Urine Bacteria Hyaline Casts [place] Microbiology Microbiology Results: Microbiology 01/27/22 20:25 Sputum - Suctioned Gram Stain - Final 01/27/22 20:25 Sputum - Suctioned Sputum Culture - Preliminary Culture in progress. Quality Stroke Does the patient have a stroke diagnosis?: No VTE Prior VTE?: No VTE Risk Level:: Medical - moderate - high VTE Device Contraindication: Treatment Not Indicated VTE Drug Contraindication: Treatment Not Indicated Critical Care Time Critical Care Time (minutes): 120
--- NOTE | 2022-01-28 13:45 | MHC.CM.PN ---
Pt continues in ICU: plans are to extubate today as his FiO2 is minimal at 25%. Pt had been referred for STR following his respiratory arrest and transfer to ICU. Referrals updated. Pt will need an updated PT eval.
[2022-01-28] MEDS: propofoL 1,000 MG/100 ML VIAL 6.93 MG IVCONT (13:56)
[2022-01-28] MEDS: propofoL 200 MG/20 ML VIAL 90 MG IVPUSH (14:00)
--- NOTE | 2022-01-28 14:10 | MHC.SHP ---
Pre-Procedural Eval Section A Date of Service: 01/28/22 The patient is an INPATIENT: Yes The History & Physical has been completed within 30 days and I have reviewed it.: Yes Section B Chief Complaint: anemia Allergies: Allergies Allergy/AdvReac Type Severity Reaction Status Date / Time methylphenidate [Ritalin] Allergy Unknown Verified 04/17/20 00:00 ragweed pollen [RAGWEED] Allergy Unknown SNEEZE Unverified 05/15/20 15:13 tizanidine [Zanaflex] Allergy Unknown Verified 04/17/20 00:00 Plan I have reviewed the history and physical and performed a pertinent physical examination on my patient. No changes have occurred unless specified.
--- NOTE | 2022-01-28 14:32 | P.OP_ITS ---
Operative Note Operative Note Date of Service: 01/28/22 Narrative: Procedure Description: EGD Indication: anemia Anesthesia: General anesthesia FLEXIBLE TRANSORAL UPPER GASTROINTESTINAL ENDOSCOPY UPPER ENDOSCOPY Consent: Indications for the procedure and potential complications of bleeding, perforation, reaction to medications and missed diagnosis were discussed with the patients health care proxy and informed consent was obtained. Instrument: Olympus GIF H 190 J mid size upper endoscope Monitoring: Vital signs and clinical assessment, continuous EKG monitoring, Pulse oximetry, Carbon Dioxide monitoring and blood pressure monitoring were done throughout the procedure in the ICU Procedure: The patient was placed in the left lateral decubitis position and pre-procedure medications were administered and a bite block was placed. The endoscope was inserted into the mouth and advanced under direct vision to the third part of duodenum. A careful inspection was made as the upper endoscope was withdrawn including a retroflexed examination of the proximal stomach; Findings and interventions are described below. Findings: Larynx:normal Esophagus: GE junction at 38 cm, diaphragm hiatus at 38 cm. esophagits noted with shreyas grade III ulcer at the GEJ measuring about 10 mm. The Og was directly overlying it and was removed. Stomach: Patchy streaky gastric erythema with erosions an superficial ucleratio ns noted at the antrum.Grade 2 flap valve on retroflexed examination of the cardia. A 10 mm sessile polyp noted on retroflexion, not removed. Duodenum: Bulbar duodenitis noted, no active bleeding. Intervention: none, Impression/Findings: esophageal ulcer esophagitis erosive gastritis duodenitis gastric polyp PLAN: avoid OG tube High dose PPI e.g omeprazole 40 mg BID IV once able to take PO can use carafate 1 g QID for 2 weeks restart anti coagulation on Tuesday01/31/22 can bring him back electively for polyp removal as outpatient once he hopefully recovers
--- NOTE | 2022-01-28 14:32 | P.BOP_ITS ---
Brief Operative Note Date of Service: 01/28/22 Pre-op diagnosis: anemia Post-op diagnosis: same Procedure: see op note Surgeon: Len Gibbs MD Anesthesia: GETA Was an Library Serials Assistant used for this Procedure?: No Estimated blood loss (mL): 0 Condition: stable Disposition: ICU
--- NOTE | 2022-01-28 14:51 | PC.NURSE ---
Md informed this AM of pt's facial grimace and muscle rigidness d/t pain. no new orders at this time. Cards assessed and adjusted pacemaker this AM, pt's hr was 108 prior to adjustment, afterwards maintained 58-60s, paced. per md titrtate prop then turn off and plan to extubate. approx 1hr 30min after prop was turned off pt was opening eyes, following commands such as wiggling toes, pt was not completely awake. Afterwards md stated to turn prop back on d/t upper endo procedure scheduled for the afternoon. Prop was turned back on, pt remained on PSV, tolerating the vent. EGD was performed with team, and this rn at bedside. Consent was obtained, time out was performed, MD administered IVP Prop during procedure. Drips titrated per protocol. Pt repo'd q2. Oral care provided Q2. safety and fall precautions maintained. pt bathed this shift.
[2022-01-28] MEDS: fentaNYL citrate/PF 100 MCG/2 ML VIAL 25 MCG IVPUSH ×2 (19:40→20:57)
[2022-01-28] MEDS: Acetaminophen Supp 650 MG SUPP.RECT PR (20:39)
[2022-01-29] VITALS (35 sets, daily range): BP systolic 96–149; BP diastolic 49–103; PULSE 58–93; RESP 12–33; TEMP 34–38.1; O2SAT 91–96; BMI 35.6
[2022-01-29] MEDS: Ampicillin Sodium/Sulbactam Na 3 GM in 0.9 % Sodium Chloride 100 ML IV ×5 (00:42→23:39)
[2022-01-29] MEDS: 0.9 % Sodium Chloride Flush 3 ML SYRINGE IVFLUSH ×4 (00:44→23:40)
[2022-01-29] MEDS: Pantoprazole Sodium 40 MG/10 ML VIAL IVPUSH ×3 (00:56→22:17)
[2022-01-29] MEDS: fentaNYL citrate/PF 100 MCG/2 ML VIAL 25 MCG IVPUSH ×3 (02:16→11:53)
[2022-01-29 05:24] LABS: Hematocrit 34.2 % (42.0-52.0); Hemoglobin 9.7 g/dl (14.0-18.0); Mean Corpuscular HGB Conc 28.4 g/dl (31.0-36.0); Mean Corpuscular Hemoglobin 28.9 pg (27.0-33.0); Mean Corpuscular Volume 101.8 fL (80.0-98.0); Mean Platelet Volume 12.4 fL (9.4-12.4); NRBC Pct Auto 0.9 /100WBC (0.0-0.2); Platelet Count 54 X10*3/uL (160-400); Red Blood Count 3.36 X10*6/uL (4.60-5.80); Red Cell Distribution Width 16.6 % (11.0-16.0); White Blood Count 12.3 X10*3/uL (4.8-10.8)
[2022-01-29 05:28] LABS: INTERNATIONAL NORM RATIO 2.4 (0.9-1.1); Prothrombin Time 27.3 SEC (9.9-13.0)
[2022-01-29 05:30] LABS: VBG HCO3 22 mmol/L (22-26); VBG pCO2 35 mmHg; VBG pH 7.39 (7.32-7.43); VBG pO2 46 mmHg
[2022-01-29 05:32] LABS: Venous Blood Gas Refer to POC result
[2022-01-29 05:36] LABS: Lithium 0.64 mmol/L (0.60-1.20)
[2022-01-29 05:49] LABS: Anion Gap 14 (12-20); Blood Urea Nitrogen 36 mg/dL (9-16); Calcium 8.1 mg/dL (8.4-10.2); Carbon Dioxide 21 mmol/L (22-29); Chloride 116 mmol/L (96-108); Creatinine Clr Calc Pharmacy 45.4; Estimated Glomerular Filt Rate 34; Glucose Fasting 93 mg/dL (60-99); Potassium 4.1 mmol/L (3.3-5.1); Sodium 147 mmol/L (135-145)
--- NOTE | 2022-01-29 10:52 | MHC.CLN ---
F/U PT REMAINS INTUBATED AND SEDATED DISCUSSED AT ROUNDS WITH MD; POSSIBLE EXTUBATION TODAY OGT REMOVED R/T ESOPHAGEAL ULCER, EROSIVE GASTRITIS, AND ESOPHAGITIS IF DIET TO ADVANCE, RECOMMEND BLAND DIET WITH ENSURE ENLIVE TID TO INCREASE KCALS IF PT REMAINS INTUBATED; CONSIDER TPN/PPN FOR NUTRITION SUPPORT RD CAN BE REACHED VIA TIGER CONNECT DURING OFF HOURS
--- NOTE | 2022-01-29 11:02 | P.PNCA_ITS ---
Subjective Subjective Date of Service: 01/29/22 Principal diagnosis: Atrial flutter, ventricular pacing, cardiomyopathy Interval history: Patient remains on mechanical ventilation but is currently off all sedation. Still barely arousable. Oxygen requirement is low and maintaining oxygen saturation. Has remained hemodynamically stable and requiring very low-dose of Levophed. No tachycardia. No worsening respiratory status. Urine output is negative. Creatinine is down trending a low bit. Underwent upper endoscopy yesterday was noted to have esophageal ulcer, esophagitis as well as gastritis and gastric polyp. Advised by GI not to start oral anticoagulation till Tuesday. Review of Systems Review of Systems Yes unobtainable due to endotracheal tube Physical Exam Vital Signs: Last Vital Signs Temp 99.1 F 01/29/22 08:00 Pulse 62 01/29/22 10:00 Resp 25 H 01/29/22 10:00 BP 116/63 01/29/22 10:00 Pulse Ox 93 01/29/22 10:00 BMI result Body Mass Index 35.6 Const General: other (Sedated and on mechanical ventilation) Neck Neck: Yes trachea midline and Yes supple Resp Effort & Inspection: normal respiratory effort Auscultation: clear to auscultation bilaterally Cardio Jugular venous distension: no JVD Rate: regular rate Heart sounds: S1 normal heart sound present, S2 normal heart sound present, no click, no gallops and no murmurs GI Inspection: Yes obesity Auscultation: normal bowel sounds Skin General skin exam: no rashes or lesions noted Neuro General: other (Could not assess) Objective Labs and Meds Result diagrams: 01/29/22 05:14 01/29/22 05:14 Lab results: Laboratory Results - last 24 hr 01/29/22 01/29/22 01/29/22 05:14 05:14 05:14 WBC 12.3 H RBC 3.36 L Hgb 9.7 L Hct 34.2 L MCV 101.8 H MCH 28.9 MCHC 28.4 L RDW 16.6 H Plt Count 54 L D MPV 12.4 Absolute Nucleated RBC 0.110 H Nucleated RBC % (auto) 0.9 H PT 27.3 H INR 2.4 H VBG pH VBG pCO2 VBG pO2 VBG HCO3 VBG O2 Saturation VBG Base Excess Sodium Potassium Chloride Carbon Dioxide Anion Gap BUN Creatinine Estim Creat Clear Calc Estimated GFR Fasting Glucose Calcium [place] 0.64 01/29/22 01/29/22 05:14 05:21 WBC RBC Hgb Hct MCV MCH MCHC RDW Plt Count MPV Absolute Nucleated RBC Nucleated RBC % (auto) PT INR VBG pH 7.39 VBG pCO2 35 VBG pO2 46 VBG HCO3 22 VBG O2 Saturation 67.0 VBG Base Excess -2.0 Sodium 147 H Potassium 4.1 Chloride 116 H Carbon Dioxide 21 L Anion Gap 14 BUN 36 H Creatinine 1.92 H Estim Creat Clear Calc 45.4 Estimated GFR 34 Fasting Glucose 93 Calcium 8.1 L [place] Progress Note: A&P Assessment and plan (1) Atrial flutter: Status: Acute Assessment and Plan: Persistent atrial flutter in this elderly gentleman but rate is adequately controlled. Currently cannot be anticoagulated due to upper GI bleed and lesions. Plan to be oral anticoagulated starting Tuesday. If okay consider switching to direct oral anticoagulant such as Eliquis. I do not think there is an urgency to pursue AZIZA guided cardioversion in him unless he becomes difficult to rate control or difficult to wean or has hypertension. Can you metoprolol therapy for now. Eventually I think in the long run in the past he has benefited by rhythm control approach and will pursue that as an outpatient after adequate oral anticoagulation as outpatient and he tolerated oral antic oagulation. (2) Cardiomyopathy: Status: Acute Assessment and Plan: New onset cardiomyopathy of unclear etiology. Does not appear to be in overt heart failure. Oxygen requirement has not been significant. He is hemodynamically stable at this point time. Continue metoprolol for neurohorm onal modulation at this point time. Once he is extubated and blood pressure remained stable will start him on other agents such as Diovan if his kidney function continue to improve. Signs and symptoms of heart failure need to be pursued. Continue to avoid significant fluid boluses. Most likely reason for cardiomyopathy could be pacing induced because patient is currently RV pacing and may require cardiac see exercising therapy as outpatient will also require ischemic workup. (3) Cardiac pacemaker in situ: Status: Acute Assessment and Plan: Cardiac pacemaker in-situ reprogrammed with adequate and appropriate pacing at this point in time. Patient is currently pacer dependent ventricle. Will continue to follow with you. Plan is for extubation today if patient wakes up Time Spent With Patient Time: Total time spent is greater than 50% in coordination of care (as documented) at patient's floor/unit and/or counseling patient: Progress Note: Quality Stroke Does the patient have a stroke diagnosis?: No Procedures Date of Service Date of Service: 01/29/22
[2022-01-29] MEDS: fentaNYL citrate/PF 100 MCG/2 ML VIAL 50 MCG IVPUSH ×2 (12:35→12:42)
[2022-01-29] MEDS: fentaNYL citrate/NS 1,000 MCG/100 ML PLAST..BAG 5 MCG IVCONT ×2 (12:42→23:33)
[2022-01-29 14:00] LABS: Ammonia 40 umol/L (13-55)
--- NOTE | 2022-01-29 14:06 | P.PNCC_ITS ---
Subjective Subjective Date of Service: 01/29/22 Interval History: Mr. Cloud was transferred to the ICU January 27 after emergent tracheal intubation on [facility]. The patient is a 76 yo M with PMHx of Parkinson?s disease, depression/bipolar disease on [place], atrial fibrillation/flutter on Coumadin, PPM for sick sinus syndrome, asthma, DJD, high cholesterol, HTN, hypothyroidism, irritable bowel syndrome, and peripheral neuropathy.? Labs show a long h/o thrombocytopenia, I don?t know why. Prior echocardiogram Mar, 2021 showed normal LV systolic function with impaired relaxation, normal RV, normal Dopplers, top-normal RV systolic pressure The patient lives in an apartment.? A friend of his -- a woman named Stacy Tolentino -- lives on the floor above him and is his emergency contact and HCP (which we have a copy of).? She told me that his only living relative is a son who the patient has no contact with.? At baseline, the patient is independent and drives a car. HISTORY OF PRESENT ILLNESS: The patient was BIBA to the ED on January 22 bec of worsening weakness and FTT for last 1 - 1.5 weeks, and hallucinating and falling at home.? I spoke to his PMD, Dr. Roy, this morning.? He said that the patient had been failing for about a month.? But his caregiver was giving him his medications in the exact amounts prescribed (i.e. he didn?t fail to take his med s, or take too much of his meds).? Of note, baseline creat is about 1.2.? On 01/07, lab draw at this PMD showed creat 1.5.? Hb was 11, compared to baseline of about 13-14. ED workup notable for low blood pressures, AUGUST, BNP of 1391, lithium level 1.95, INR 10.? Treated with IV fluids, vitamin K, FFP.? CT abdomen and chest were negative for important findings.? He was admitted to medicine for management of hypotension, hypovolemia, AUGUST, lithium toxicity w encephalopathy, sup ratherapeutic INR, and failure to thrive. Over the next few days, his mental status improved and he became more appropriate as his lithium level came down.? His blood pressure and acute kidney injury improved with hydration.? INR improved and his EKG showed a paced ventricular rhythm on beta blockers.? He restarted Coumadin on January 23.? His dose of Coumadin was being slowly increased. On the morning of January 27, the patient was found to have a temperature 101.1 degrees.? An hour later at about 9am, the patient was found unresponsive.? A code blue was called.? The patient was breathing and never lost his spont circulation.? His respiratory effort was grossly inadequate.? Initial attempts at intubation resulted in regurgitation of copious black/maroon liquidy GI contents, but without clinical aspiration.? On successful intubation, staining of the glottis with that blackish/maroonish liquid was noted, but there was no reflux of that fluid into the endotracheal tube after intubation.? The patient was then transferred to the ICU. Post intubation CXR suggested a right mid-lung infiltrate, but FiO2 was rapidly tapered to 25%.? He had no further UGI bleeding, and no melena.? Hb was stable.? He required low dose Levophed.? He spiked a temp.? We put him on Unasyn. ECHO showed: 1. Dilated LV w severe global hypokinesis, EF 15-20%. 2. RV is mildly increased size, also hypokinetic. 3. Mild biatrial enlargement. 4. Trace MR. 5. Mild TR w CWD measuring 2.6 m/sec (gradient 27mm). 6. IVC 2.5 cm with minimal insp collapse.? RVSP estimate 42mm (which underestimates PVR bec of the low EF). The patient underwent EGD yest afternoon.? He was found to have a prominent esophageal ulcer -- couldn?t say whether he bled from that or the ulcer was 2? to the OGtube.? Also found esophagitis, erosive gastritis, and duodenitis.? We pulled the OG tube.? Plan was to continue him on high-dose PPI, and start Carafate once he is extubated and able to eat.? Could be reanticoagulated starting in 3 days (Tuesday) if everything goes well. We turned the propofol off last night.? He?s been easily arousable since then, and makes eye opening movements, but doesn?t become clearly awake, and has not been responsive to commands.? He?s been on PSV all night overnight and this morning.? CVBG this morning showed 7.39/35/-2.? But early this afternoon, he became tachypneic, his tidal vols dropped, and he became tachycardic and hypertensive, BP up to 150s.? We treated him w fentanyl 100ug and put him back on AC.? HR, BP, and RR came down.? Sat?s stable at 93% on 25%/+8. ?Tmax 101.8.? Rhythm is still V-paced, looks like Afib underneath. ?No JVD at 30 degrees.? [address] is clear to auscultation, with normal expiratory phase.? Heart tones are very soft.? I heard no murmur or gallops.? Abdomen is large and benign.? He has 1-2+ peripheral and central edema. LABORATORY DATA:? As below.? Notably, white count is down to 12, Hb steady 9.7; platelets down to 54K; PT off Coumadin down to 27/2.4, BUN/creatinine steady 36/1.9. ?[place] level 0.64. IMPRESSION: 1. Underlying Parkinson?s disease 2. Underlying depression/bipolar disease, on [place], with elevated lithium level on admission.? [place] has been held, it?s time to restart dosing once he?s extubated. 3. Underlying afib/flutter on Coumadin, with supratherapeutic level/coagulopathy on admission that was reversed.? He was started back on the Coumadin, had a therapeutic level, then had an UGI bleed.? Coumadin now being held. 4. PPM for sick sinus syndrome 5. Underlying hypothyroidism, on thyroxine. 6. FTT for the month prior to admission, for unclear reasons.? Possibly 2? to the CMOP seen on echo. 7. New fever, altered MS, acute respiratory failure on January 27.? Given the bloody vomitus with the therapeutic INR, my initial impression is that the pat ient had an UGI bleed and aspirated, altho the lack of a drop in his Hb level argues against that. 8. Persistent encephalopathy.? Need to r/o CVA.? Send for CT now. 9. UGI bleed.? Given the lack of a major drop in his Hb, this was likely some kind of stress gastritis/esophagitis in the presence of a therapeutic INR.? Can?t say what the cause of his esophageal ulcer is, nor whether that was respo nsible for his UGI bleed. ?Regardless, plan is bid PPI, and add Carafate once extubated.? Given the potential benefit of cardioversion, he needs to restart anticoagulation.? We?ll do that Tuesday with Lovenox, if everything goes well. 10. Acute respiratory failure.? Likely 2? aspiration.? I?ve written him for Unasyn, altho it?s not clear that any abx are truly indicated, nikolai given the lack of significant hypoxemia.? Mechanically, he should be extubatable once he becomes more awake. 11. CMOP.? Discussed at length with Dr. Martini.? Most likely either rate related, or [place].? No evidence of ACS.? He might benefit from cardioversion.? That would be next week or as an outpatient. 12. Hypotension.? 2? either to SIRS or the CMOP.? Don?t? think he?s septic.? Echo indicates that he?s volume replete.? Target MAP now is 60 mm. 13. AUGUST.? Most likely 2? the acute episode January 27 and SIRS (i.e. ATN).? At least he?s not oliguric. 14. Thrombocytopenia.? Labs show this is chronic, dating back as far as 2018.? Confirmed w Dr. Roy.? Don?t know the cause. Critical care time:? 70+ min. Critical Care Time (minutes): 70 Physical Exam Vital Signs: Vital Signs: Last Vital Signs Temp 99.1 F 01/29/22 12:00 Pulse 64 01/29/22 14:00 Resp 16 01/29/22 14:00 BP 103/55 L 01/29/22 14:00 Pulse Ox 92 01/29/22 14:00 BMI result Body Mass Index 35.6 Objective Data Labs CBC & Chem 7: 01/29/22 05:14 01/29/22 05:14 Labs: Laboratory Results - last 24 hr 01/29/22 01/29/22 01/29/22 05:14 05:14 05:14 WBC 12.3 H RBC 3.36 L Hgb 9.7 L Hct 34.2 L MCV 101.8 H MCH 28.9 MCHC 28.4 L RDW 16.6 H Plt Count 54 L D MPV 12.4 Absolute Nucleated RBC 0.110 H Nucleated RBC % (auto) 0.9 H PT 27.3 H INR 2.4 H VBG pH VBG pCO2 VBG pO2 VBG HCO3 VBG O2 Saturation VBG Base Excess Sodium Potassium Chloride Carbon Dioxide Anion Gap BUN Creatinine Estim Creat Clear Calc Estimated GFR Fasting Glucose Calcium Ammonia [place] 0.64 01/29/22 01/29/22 01/29/22 05:14 05:21 13:44 WBC RBC Hgb Hct MCV MCH MCHC RDW Plt Count MPV Absolute Nucleated RBC Nucleated RBC % (auto) PT INR VBG pH 7.39 VBG pCO2 35 VBG pO2 46 VBG HCO3 22 VBG O2 Saturation 67.0 VBG Base Excess -2.0 Sodium 147 H Potassium 4.1 Chloride 116 H Carbon Dioxide 21 L Anion Gap 14 BUN 36 H Creatinine 1.92 H Estim Creat Clear Calc 45.4 Estimated GFR 34 Fasting Glucose 93 Calcium 8.1 L Ammonia 40 [place] Microbiology Microbiology Results: Microbiology 01/27/22 20:25 Sputum - Suctioned Gram Stain - Final 01/27/22 20:25 Sputum - Suctioned Sputum Culture - Final 01/27/22 13:46 Blood - Venous Blood Culture - Preliminary No growth after 24 hours. 01/27/22 13:46 Blood - Venous Blood Culture - Preliminary No growth after 24 hours. Quality Stroke Does the patient have a stroke diagnosis?: No VTE Prior VTE?: No VTE Risk Level:: Medical - moderate - high VTE Device Contraindication: Treatment Not Indicated VTE Drug Contraindication: Treatment Not Indicated Critical Care Time Critical Care Time (minutes): 60
[2022-01-29 14:18] LABS: Lactate Dehydrogenase 862 U/L (118-273)
[2022-01-29] MEDS: fentaNYL citrate/PF 100 MCG/2 ML VIAL IVPUSH ×2 (14:30→17:13)
--- NOTE | 2022-01-29 18:30 | PC.NURSE ---
Remains intubated. Sedation added for asynchrony and fighting vent. Continues to not follow commands. Head CT ordered and done, unremarkable. NH3 level also wnLs. Fentanyl drip now infusing at 50mcg/hr as IVP doses were ineffective. Vent settings now AC instead of PSV. Rate 12, Vt 450, FiO2 30% with PEEP 8. Copious creamy oral secretions and scant amount inline. Levophed weaned off today. Continues without OGT as well as oral meds. No further stool, therefore no specimen sent. [place] draining clear yellow urine. Bruises unchanged throughout d/t fall TUG HAND. Tele shows Afib/fine flutter with BBB and frequent PVCs. Occasional V-pacing noted. Edema as noted in assessment. Extremities elevated on pillows. Repositioned q2hrs for pressure relief. Tmax 100.8 today. Scheduled IV meds as ordered.
[2022-01-30] VITALS (30 sets, daily range): BP systolic 96–152; BP diastolic 42–85; PULSE 59–92; RESP 11–24; TEMP 34.6–38.2; O2SAT 90–100; BMI 35.4
[2022-01-30 05:43] LABS: VBG Base Excess -0.5 mmol/L; VBG HCO3 24 mmol/L (22-26); VBG pCO2 42 mmHg; VBG pH 7.36 (7.32-7.43); VBG pO2 49 mmHg
[2022-01-30] MEDS: Ampicillin Sodium/Sulbactam Na 3 GM in 0.9 % Sodium Chloride 100 ML IV ×2 (05:48→13:36)
[2022-01-30 05:58] LABS: Hematocrit 33.2 % (42.0-52.0); Hemoglobin 9.3 g/dl (14.0-18.0); Mean Corpuscular Hemoglobin 29.2 pg (27.0-33.0); Mean Corpuscular Volume 104.4 fL (80.0-98.0); Mean Platelet Volume 12.3 fL (9.4-12.4); NRBC Pct Auto 0.6 /100WBC (0.0-0.2); Red Blood Count 3.18 X10*6/uL (4.60-5.80); Red Cell Distribution Width 16.4 % (11.0-16.0); White Blood Count 7.2 X10*3/uL (4.8-10.8)
[2022-01-30 05:59] LABS: Platelet Count 40 X10*3/uL (160-400)
[2022-01-30 06:04] LABS: INTERNATIONAL NORM RATIO 2.2 (0.9-1.1); Prothrombin Time 25.2 SEC (9.9-13.0)
[2022-01-30 06:06] LABS: Venous Blood Gas Refer to POC result
[2022-01-30 06:19] LABS: Alanine Aminotransferase 663 U/L (0-40); Albumin Level 2.9 g/dL (3.5-5.0); Alkaline Phosphatase 141 U/L (39-117); Anion Gap 14 (12-20); Aspartate Amino Transferase 407 U/L (5-37); Bilirubin Total 2.8 mg/dL (0.0-1.0); Blood Urea Nitrogen 32 mg/dL (9-16); Carbon Dioxide 22 mmol/L (22-29); Chloride 120 mmol/L (96-108); Creatinine Clr Calc Pharmacy 59.6; Estimated Glomerular Filt Rate 47; Glucose Random 87 mg/dL (60-115); Magnesium 2.4 mg/dL (1.6-2.6); Potassium 3.9 mmol/L (3.3-5.1); Sodium 152 mmol/L (135-145); Total Protein 5.3 g/dL (6.5-8.0)
[2022-01-30 06:20] LABS: B Type Natriuretic Peptide 2252 pg/mL (<100)
[2022-01-30] MEDS: Pantoprazole Sodium 40 MG/10 ML VIAL IVPUSH (09:34)
[2022-01-30] MEDS: 0.9 % Sodium Chloride Flush 3 ML SYRINGE IVFLUSH ×2 (09:34→16:19)
--- NOTE | 2022-01-30 10:05 | P.PNCA_ITS ---
Subjective Subjective Date of Service: 01/30/22 Principal diagnosis: Atrial flutter, ventricular pacing, cardiomyopathy Interval history: Patient remains hemodynamically stable with controlled ventricular response with paced rhythm. Also oxygen requirement is stable. More arousable today than yesterday. Was not extubated yesterday. No episodes of fever. Review of Systems Review of Systems Yes unobtainable due to endotracheal tube Physical Exam Vital Signs: Last Vital Signs Temp 99.1 F 01/30/22 10:00 Pulse 66 01/30/22 10:00 Resp 12 01/30/22 10:00 BP 115/60 01/30/22 10:00 Pulse Ox 94 01/30/22 10:00 BMI result Body Mass Index 35.4 Const General: no acute distress and other (Intubated on went) Nutritional Appearance: obese Orientation/consciousness: Other orientation findings (Arousable on verbal cues) Neck Neck: Yes trachea midline, Yes supple and Yes no JVD Resp Auscultation: clear to auscultation bilaterally Cardio Jugular venous distension: no JVD Rate: regular rate Rhythm: regular rhythm Heart sounds: S1 normal heart sound present, S2 normal heart sound present, no click, no gallops and no murmurs Neuro General: other (Cannot evaluate) Extrem General: Yes no clubbing, cyanosis or edema Objective Labs and Meds Result diagrams: 01/30/22 05:20 01/30/22 05:20 Lab results: Laboratory Results - last 24 hr 01/29/22 01/29/22 01/30/22 05:14 13:44 05:20 WBC 7.2 RBC 3.18 L Hgb 9.3 L Hct 33.2 L MCV 104.4 H MCH 29.2 MCHC 28.0 L RDW 16.4 H Plt Count 40 L D MPV 12.3 Absolute Nucleated RBC 0.040 H Nucleated RBC % (auto) 0.6 H PT INR VBG pH VBG pCO2 VBG pO2 VBG HCO3 VBG O2 Saturation VBG Base Excess Sodium Potassium Chloride Carbon Dioxide Anion Gap BUN Creatinine Estim Creat Clear Calc Estimated GFR Random Glucose Calcium Magnesium Total Bilirubin Direct Bilirubin AST ALT Alkaline Phosphatase Ammonia 40 Lactate Dehydrogenase 862 H B-Natriuretic Peptide Total Protein Albumin 01/30/22 01/30/22 01/30/22 05:20 05:20 05:20 WBC RBC Hgb Hct MCV MCH MCHC RDW Plt Count MPV Absolute Nucleated RBC Nucleated RBC % (auto) PT INR VBG pH VBG pCO2 VBG pO2 VBG HCO3 VBG O2 Saturation VBG Base Excess Sodium 152 H Potassium 3.9 Chloride 120 H Carbon Dioxide 22 Anion Gap 14 BUN 32 H Creatinine 1.46 H Estim Creat Clear Calc 59.6 Estimated GFR 47 Random Glucose 87 Calcium 8.0 L Magnesium 2.4 Total Bilirubin 2.8 H Direct Bilirubin 2.0 H AST 407 H ALT 663 H Alkaline Phosphatase 141 H D Ammonia Lactate Dehydrogenase B-Natriuretic Peptide 2252 H Total Protein 5.3 L Albumin 2.9 L 01/30/22 01/30/22 05:20 05:34 WBC RBC Hgb Hct MCV MCH MCHC RDW Plt Count MPV Absolute Nucleated RBC Nucleated RBC % (auto) PT 25.2 H INR 2.2 H VBG pH 7.36 VBG pCO2 42 VBG pO2 49 VBG HCO3 24 VBG O2 Saturation 72.0 VBG Base Excess -0.5 Sodium Potassium Chloride Carbon Dioxide Anion Gap BUN Creatinine Estim Creat Clear Calc Estimated GFR Random Glucose Calcium Magnesium Total Bilirubin Direct Bilirubin AST ALT Alkaline Phosphatase Ammonia Lactate Dehydrogenase B-Natriuretic Peptide Total Protein Albumin Imaging Radiologist's impression: Impressions Head CT 01/29/22 14:47 IMPRESSION: No acute intracranial process. Mild cerebral volume loss with chronic chronic small vessel ischemic changes. No major change compared to previous study 01/22/2022 Progress Note: A&P Assessment and plan (1) Cardiomyopathy: Status: Acute Assessment and Plan: New onset cardiomyopathy severe LV systolic dysfunction without any overt signs of heart failure at this point time. Hemodynamically stable. Continue metoprolol therapy for neurohormonal modulation for now. Once extubated and bl ood pressure remained stable and when renal function improves, will add angiotensin receptor melva to his regimen. Eventually require workup from ischemic perspective. 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 May require cardiac resynchronization therapy in the future. No need for diuretic regimen at this point in time. (2) Atrial flutter: Status: Acute Assessment and Plan: Persistent atrial by pacer telemetry. Hemodynamically stable and rate is adequately controlled. For now will continue rate control strategy. Will avoid AZIZA guided cardioversion unless he has hemodynamic instability or untreated will heart failure or not weanable status. Recent GI bleed and his oral anticoagulation is on hold. Can be started tomorrow as per GI. Consider starting direct oral anticoagulant for more rapid onset and predictable anticoagulation. (3) Cardiac pacemaker in situ: Status: Acute Assessment and Plan: Cardiac pacemaker in-situ, currently working appropriately. No changes. Will continue to follow with you Time Spent With Patient Time: Total time spent is greater than 50% in coordination of care (as documented) at patient's floor/unit and/or counseling patient: Progress Note: Quality Stroke Does the patient have a stroke diagnosis?: No Procedures Date of Service Date of Service: 01/30/22
--- NOTE | 2022-01-30 11:44 | PM.CCPN ---
Subjective Subjective Date of Service: 01/30/22 Interval History: Mr. Cloud was transferred to the ICU January 27 after [place] [facility] The patient is a 76 yo M with PMHx of Parkinson?s disease, depression/bipolar disease on Manuel Garcia, atrial fibrillation/flutter on Coumadin, PPM for sick sinus syndrome, asthma, DJD, high cholesterol, HTN, hypothyroidism, irritable bowel syndrome, and peripheral neuropathy.? Labs show a long h/o thrombocytopenia, I don?t know why. Prior echocardiogram Mar, 2021 showed normal LV systolic function with impaired relaxation, normal RV, normal Dopplers, top-normal RV systolic pressure The patient lives in an apartment.? A friend of his -- a woman named Stacy Tolentino -- lives on the floor above him and is his emergency contact and HCP (which we have a copy of).? She told me that his only living relative is a son who the patient has no contact with.? At baseline, the patient is independent and drives a car. HISTORY OF PRESENT ILLNESS: The patient was BIBA to the ED on January 22 bec of worsening weakness and FTT for last 1 - 1.5 weeks, and hallucinating and falling at home.? I spoke to his PMD, Dr. Roy, this morning.? He said that the patient had been failing for about a month.? But his caregiver was giving him his medications in the exact amounts prescribed (i.e. he didn?t fail to take his meds, or take too much of his meds).? Of note, baseline creat is about 1.2.? On 01/07, lab draw at this PMD showed creat 1.5.? Hb was 11, compared to baseline of about 13-14. ED workup notable for low blood pressures, AUGUST, BNP of 1391, lithium level 1.95, INR 10.? Treated with IV fluids, vitamin K, FFP.? CT abdomen and chest were negative for important findings.? He was admitted to medicine for management of hypotension, hypovolemia, AUGUST, lithium toxicity w encephalopathy, supratherapeutic INR, and failure to thrive. Over the next few days, his mental status improved and he became more appropriate as his lithium level came down.? His blood pressure and acute kidney injury improved with hydration.? INR improved and his EKG showed a paced ventricular rhythm on beta blockers.? He restarted Coumadin on January 23.? His dose of Coumadin was being slowly increased. On the morning of January 27, the patient was found to have a temperature 101.1 degrees.? An hour later at about 9am, the patient was found unresponsive.? A code blue was called.? The patient was breathing and never lost his spont circulation.? His respiratory effort was grossly inadequate.? Initial attempts at intubation resulted in regurgitation of copious black/maroon liquidy GI contents, but without clinical aspiration.? On successful intubation, staining of the glottis with that blackish/maroonish liquid was noted, but there was no reflux of that fluid into the endotracheal tube after intubation.? The patient was then transferred to the ICU. Post intubation CXR suggested a right mid-lung infiltrate, but FiO2 was rapidly tapered to 25%.? He had no further UGI bleeding, and no melena.? Hb was stable.? He required low dose Levophed.? He spiked a temp.? We put him on Unasyn. ECHO showed: 1. Dilated LV w severe global hypokinesis, EF 15-20%. 2. RV is mildly increased size, also hypokinetic. 3. Mild biatrial enlargement. 4. Trace MR. 5. Mild TR w CWD measuring 2.6 m/sec (gradient 27mm). 6. IVC 2.5 cm with minimal insp collapse.? RVSP estimate 42mm (which underestimates PVR bec of the low EF). The patient underwent EGD 5 January 28.? He was found to have a prominent esophageal ulcer -- couldn?t say whether he bled from that or the ulcer was 2? to the OG tube.? Also found esophagitis, erosive gastritis, and duodenitis.? We pulled the OG tube.? Plan was to continue him on high-dose PPI, and start Carafate once he is extubated and able to eat.? Could be reanticoagulated starting in 3 days (Tuesday) if everything goes well. We turned the propofol off January 28.? He?s been easily arousable since then, and makes eye opening movements, but doesn?t become clearly awake, and has been unresponsive to commands.? He did well for some hours on PSV, but gets dysynchronus, tachycardic, tachypneic, and hypertensive with suctioning, so we?ve had to break that with fentanyl boluses, and we?ve put him on AC ventilation. On exam this morning, on only fentanyl 50ug, he opens eyes readily, but is 100% noninteractive to command.? He withdraws to pain.? Doesn?t track, no response to confrontation.? HR 64 v-paced, with underlying Afib.? BP 120/63 off Levophed.? On AC 12/450/25%/+8, RR is 12, Ve 5.0L, PiP 27cm, ETCO2 43mm, Sat 95%. ?CVBG this morning showed 7.36/42/0.? Afebrile. ?No JVD at 30 degrees.? Chest is clear to auscultation, with normal expiratory phase.? Heart tones are very soft.? I heard no murmur or gallops.? Abdomen is large and benign.? He has 1-2+ peripheral and central edema. LABORATORY DATA:? As below.? Notably, white count is down to 7, Hb down slightly to 9.3; platelets down to 40K; PT off Coumadin down to 25/2.2, BUN/creatinine down to 32/1.4. I put a Kaofeed tube down.? CXR shows it?s at the pylorus. IMPRESSION: 1. Underlying Parkinson?s disease.? Hasn?t had his Sinemet in two days.? Restarted today after the feeding tube was placed. 2. Underlying depression/bipolar disease, on Manuel Garcia, with elevated lithium level on admission.? Manuel Garcia had been held.? Wrote to restart it today. 3. Underlying afib/flutter on Coumadin, with supratherapeutic level/coagulopathy on admission that was reversed.? He was started back on the Coumadin, had a therapeutic level, then had an UGI bleed.? Coumadin now being held.? INR today was 2.2.? I?ll restart anticoagulation with Lovenox tomorrow if he doesn?t rebleed. 4. PPM for sick sinus syndrome 5. Underlying hypothyroidism, on thyroxine. 6. FTT for the month prior to admission, for unclear reasons.? At this point, the CMOP looks like the most likely culprit. 7. New fever, altered MS, acute respiratory failure on January 27.? Given the bloody vomitus with the therapeutic INR, my initial impression is that the patient had an UGI bleed and aspirated.? Had an infiltrate on his chest x-ray, so I started him on Unasyn.? DC the Unasyn today with normalization of his white count and temperature. 8. Failure to awaken/persistent encephalopathy of unclear etiology.? He hasn?t been getting his gabapentin or any other SHINGLES ROOFER agent in 48hrs.? Head CT yest was negative.? I asked Dr. Garg to see him.? ? LP (would have to reverse his Coumadin). 9. UGI bleed.? Definitely had an UGI bleed on January 27, altho there was no real drop in Hb.? Which means that the bleed was minor, probably stress gastritis or the like in the presence of a therapeutic INR.? Can?t say what the cause of his esophageal ulcer is, nor whether that was responsible for his UGI bleed. ?Regardless, plan is bid PPI and Carafate.? Given the potential benefit of cardioversion, he needs to restart anticoagulation.? We?ll plan that for tomorrow, if everything goes well. 10. Acute respiratory failure.? Likely 2? aspiration. ?Mechanically, he should be extubatable once he becomes more awake. 11. CMOP.? Discussed at length with Dr. Martini.? Most likely either rate related, or Takotzubo.? No evidence of ACS.? He might benefit from cardioversion.? That would be next week or as an outpatient. 12. Hypotension.? 2? either to SIRS or the CMOP.? Don?t? think he?s septic.? Echo indicated that he was volume replete.? Target MAP now is 60 mm. 13. AUGUST.? Most likely 2? the acute episode January 27 and SIRS (i.e. ATN).? At least he?s not oliguric. 14. Hypernatremia.? He?s also hypovolemic now.? I?ll give him a liter of D5W, then D5W IV and water flushes w his tube feed. 15. Thrombocytopenia.? Labs show this is chronic, dating back as far as 2018.? Confirmed w Dr. Roy.? Don?t know the cause. 16. Nutrition.? Started on Promote. Critical Care Time (minutes): 60 Physical Exam Vital Signs: Vital Signs: Last Vital Signs Temp 99.1 F 01/30/22 11:00 Pulse 64 01/30/22 11:00 Resp 12 01/30/22 11:00 BP 120/63 01/30/22 11:00 Pulse Ox 94 01/30/22 11:00 BMI result Body Mass Index 35.4 Objective Data Labs CBC & Chem 7: 01/30/22 05:20 01/30/22 05:20 Labs: Laboratory Results - last 24 hr 01/29/22 01/29/22 01/30/22 05:14 13:44 05:20 WBC 7.2 RBC 3.18 L Hgb 9.3 L Hct 33.2 L MCV 104.4 H MCH 29.2 MCHC 28.0 L RDW 16.4 H Plt Count 40 L D MPV 12.3 Absolute Nucleated RBC 0.040 H Nucleated RBC % (auto) 0.6 H PT INR VBG pH VBG pCO2 VBG pO2 VBG HCO3 VBG O2 Saturation VBG Base Excess Sodium Potassium Chloride Carbon Dioxide Anion Gap BUN Creatinine Estim Creat Clear Calc Estimated GFR Random Glucose Calcium Magnesium Total Bilirubin Direct Bilirubin AST ALT Alkaline Phosphatase Ammonia 40 Lactate Dehydrogenase 862 H B-Natriuretic Peptide Total Protein Albumin 01/30/22 01/30/22 01/30/22 05:20 05:20 05:20 WBC RBC Hgb Hct MCV MCH MCHC RDW Plt Count MPV Absolute Nucleated RBC Nucleated RBC % (auto) PT INR VBG pH VBG pCO2 VBG pO2 VBG HCO3 VBG O2 Saturation VBG Base Excess Sodium 152 H Potassium 3.9 Chloride 120 H Carbon Dioxide 22 Anion Gap 14 BUN 32 H Creatinine 1.46 H Estim Creat Clear Calc 59.6 Estimated GFR 47 Random Glucose 87 Calcium 8.0 L Magnesium 2.4 Total Bilirubin 2.8 H Direct Bilirubin 2.0 H AST 407 H ALT 663 H Alkaline Phosphatase 141 H D Ammonia Lactate Dehydrogenase B-Natriuretic Peptide 2252 H Total Protein 5.3 L Albumin 2.9 L 01/30/22 01/30/22 05:20 05:34 WBC RBC Hgb Hct MCV MCH MCHC RDW Plt Count MPV Absolute Nucleated RBC Nucleated RBC % (auto) PT 25.2 H INR 2.2 H VBG pH 7.36 VBG pCO2 42 VBG pO2 49 VBG HCO3 24 VBG O2 Saturation 72.0 VBG Base Excess -0.5 Sodium Potassium Chloride Carbon Dioxide Anion Gap BUN Creatinine Estim Creat Clear Calc Estimated GFR Random Glucose Calcium Magnesium Total Bilirubin Direct Bilirubin AST ALT Alkaline Phosphatase Ammonia Lactate Dehydrogenase B-Natriuretic Peptide Total Protein Albumin Microbiology Microbiology Results: Microbiology 01/27/22 13:46 Blood - Venous Blood Culture - Preliminary No growth after 48 hours. 01/27/22 13:46 Blood - Venous Blood Culture - Preliminary No growth after 48 hours. 01/27/22 20:25 Sputum - Suctioned Gram Stain - Final 01/27/22 20:25 Sputum - Suctioned Sputum Culture - Final Quality Stroke Does the patient have a stroke diagnosis?: No VTE Prior VTE?: No VTE Risk Level:: Medical - moderate - high VTE Device Contraindication: Treatment Not Indicated VTE Drug Contraindication: Treatment Not Indicated Critical Care Time Critical Care Time (minutes): 60
[2022-01-30] MEDS: fentaNYL citrate/PF 100 MCG/2 ML VIAL IVPUSH ×2 (13:00→13:42)
[2022-01-30] MEDS: Carbidopa/Levodopa 25/100 TABLET 1 TAB PO ×2 (13:41→20:10)
[2022-01-30] MEDS: buPROPion HCL 100 MG TABLET NG-TUBE ×2 (13:41→20:10)
[2022-01-30 14:22] LABS: Haptoglobin 226 mg/dL (43-212)
[2022-01-30] MEDS: Dextrose 5 % 1,000 ML 300 ML IVCONT (14:32)
--- NOTE | 2022-01-30 16:56 | ECG_ITS ---
Test Reason : r/o torsades Blood Pressure : / mmHG Vent. Rate : 077 BPM Atrial Rate : 077 BPM P-R Int : 304 ms QRS Dur : 146 ms QT Int : 448 ms P-R-T Axes : 094 -14 266 degrees QTc Int : 506 ms Sinus rhythm with 1st degree A-V block Right bundle branch block Septal infarct , age undetermined T-wave inversion in Anterior leads , suggestive of ischemia Abnormal ECG When compared with ECG of 27-JAN-2022 19:33, Sinus rhythm has replaced Electronic ventricular pacemaker Referred By: Reid Solis Electronically Signed By:FAYE HIGGINS MD
[2022-01-30] MEDS: Magnesium Sulfate/D5W 1 GM/100 ML PIGGYBACK IV (17:32)
[2022-01-30] MEDS: Dextrose 5 % 1,000 ML 40 ML IVCONT (17:39)
[2022-01-30 18:01] LABS: ABG Base Excess -4.3 mmol/L; ABG HCO3 19 mmol/L (22-26); ABG pCO2 32 mmHg (32-45); ABG pH 7.38 (7.35-7.45); ABG pO2 89 mmHg (83-108)
--- NOTE | 2022-01-30 18:17 | PC.NURSE ---
At 1701 patient noted to be in VT with questionable Torsades, and without a pulse. CPR initiated by RN and code called. Patient required ACLS and defibrillation. During code patient converted to VB and then sinus. See Code Documentation Flowsheet for full event. Art line placed by Dr. Solis. Labs, including trop, abg, H&H, BMP, lactic acid sent. EKG done. Presently patient is in SR with first degree HB and RBBB. Off levophed. D5W infusing. Dr. Ma at bedside; awaiting lab results. CXR in progress.
[2022-01-30 18:18] LABS: Hematocrit 32.4 % (42.0-52.0); Hemoglobin 9.2 g/dl (14.0-18.0)
[2022-01-30 18:38] LABS: Anion Gap 15 (12-20); Blood Urea Nitrogen 29 mg/dL (9-16); Calcium 7.6 mg/dL (8.4-10.2); Carbon Dioxide 19 mmol/L (22-29); Chloride 119 mmol/L (96-108); Creatinine Clr Calc Pharmacy 59.1; Estimated Glomerular Filt Rate 46; Glucose Random 209 mg/dL (60-115); Potassium 3.5 mmol/L (3.3-5.1); Sodium 149 mmol/L (135-145)
[2022-01-30 18:41] LABS: Lactic Acid 2.7 mmol/L (0.5-2.0)
--- NOTE | 2022-01-30 18:58 | PC.NURSE ---
CANCEL FURTHER LACTICS PER MD
[2022-01-30 19:05] LABS: Troponin-I High Sensitivity 12.9 ng/L (<3.5-35.0)
--- NOTE | 2022-01-30 19:32 | PM.CCPN ---
Subjective Subjective Date of Service: 01/30/22 Interval History: At about 16:36, Mr. Cloud had a roughly 5 sec episode of what looks like Torsades that terminated spontaneously.? That was followed a few seconds later by a 4-beat run that self terminated. While we were checking labs and preparing to hang Magnesium, at about 1701, he went into what looks like sustained Torsades.? He had no pulse.? CPR was started immediately.? The rhythm deteriorated into VFib.? A 200 joule countershock was administered.? He continued to be in VFib. ?Another shock was administered which converted him into a pulsatile rhythm which looks to me like either atrial flutter or sinus rhythm with a first-degree AV block.? Total duration of CPR was 11 minutes.? During the code, he was given a total of 3 mg of epinephrine. Post code, I put an arterial line in (separate procedure).? HR is 66, BP is 107/52, on no vasoactive agents.? Sat is 97% on 100%/+5 PEEP.? Initial ABG post arrest showed 7.38/32/89/-4.? Hb is stable.? Sodium is down to 149, BUN and creatinine steady at 29/1.47, bicarb is 19, potassium is 3.5, lactic acid is 2.7.? Troponin is 12.9. EKG shows sinus rhythm with first-degree AV block with ischemic changes in the anterolateral leads. ?CXR shows increased batwing airspace disease in the perihilar distribution concerning for worsened pulmonary edema. My bedside Echo post cardiac arrest:? LV contractility is globally hypokinetic, with possibly worse wall motion at the base and in the septum.? EF looks about 20%, which is actually better than previously.? Continuous wave Doppler off the tricuspid valve measured 2.0 m/sec.? IVC is dilated w minimal insp collapse. Discussed with Dr. Martini.? This appears ischemia mediated.? Suggests transfer to [facility] for cath.? He is calling the embedded software developer there. Additional critical care time (excluding procedures):? 75+ min. Critical Care Time (minutes): 75 Physical Exam Vital Signs: Vital Signs: Last Vital Signs Temp 98.8 F 01/30/22 19:00 Pulse 67 01/30/22 19:00 Resp 12 01/30/22 19:00 BP 113/55 L 01/30/22 19:00 Pulse Ox 96 01/30/22 19:00 BMI result Body Mass Index 35.4 Objective Data Labs CBC & Chem 7: 01/30/22 18:09 01/30/22 18:09 Labs: Laboratory Results - last 24 hr 01/29/22 01/30/22 01/30/22 05:14 05:20 05:20 WBC 7.2 RBC 3.18 L Hgb 9.3 L Hct 33.2 L MCV 104.4 H MCH 29.2 MCHC 28.0 L RDW 16.4 H Plt Count 40 L D MPV 12.3 Absolute Nucleated RBC 0.040 H Nucleated RBC % (auto) 0.6 H Haptoglobin 226 H PT INR O2 Saturation ABG pH at Pt Temp ABG pCO2 at Pt Temp ABG pO2 at Pt Temp ABG HCO3 ABG Base Excess (Actual) VBG pH VBG pCO2 VBG pO2 VBG HCO3 VBG O2 Saturation VBG Base Excess Sodium 152 H Potassium 3.9 Chloride 120 H Carbon Dioxide 22 Anion Gap 14 BUN 32 H Creatinine 1.46 H Estim Creat Clear Calc 59.6 Estimated GFR 47 Random Glucose 87 Lactic Acid Calcium 8.0 L Magnesium 2.4 Total Bilirubin 2.8 H Direct Bilirubin AST 407 H ALT 663 H Alkaline Phosphatase 141 H D Troponin I High Sens B-Natriuretic Peptide Total Protein 5.3 L Albumin 2.9 L Ur Random Sodium 01/30/22 01/30/22 01/30/22 05:20 05:20 05:20 WBC RBC Hgb Hct MCV MCH MCHC RDW Plt Count MPV Absolute Nucleated RBC Nucleated RBC % (auto) Haptoglobin PT 25.2 H INR 2.2 H O2 Saturation ABG pH at Pt Temp ABG pCO2 at Pt Temp ABG pO2 at Pt Temp ABG HCO3 ABG Base Excess (Actual) VBG pH VBG pCO2 VBG pO2 VBG HCO3 VBG O2 Saturation VBG Base Excess Sodium Potassium Chloride Carbon Dioxide Anion Gap BUN Creatinine Estim Creat Clear Calc Estimated GFR Random Glucose Lactic Acid Calcium Magnesium Total Bilirubin Direct Bilirubin 2.0 H AST ALT Alkaline Phosphatase Troponin I High Sens B-Natriuretic Peptide 2252 H Total Protein Albumin Ur Random Sodium 01/30/22 01/30/22 01/30/22 05:34 16:51 17:53 WBC RBC Hgb Hct MCV MCH MCHC RDW Plt Count MPV Absolute Nucleated RBC Nucleated RBC % (auto) Haptoglobin PT INR O2 Saturation 97.0 ABG pH at Pt Temp 7.38 ABG pCO2 at Pt Temp 32 ABG pO2 at Pt Temp 89 ABG HCO3 19 L ABG Base Excess (Actual) -4.3 VBG pH 7.36 VBG pCO2 42 VBG pO2 49 VBG HCO3 24 VBG O2 Saturation 72.0 VBG Base Excess -0.5 Sodium Potassium Chloride Carbon Dioxide Anion Gap BUN Creatinine Estim Creat Clear Calc Estimated GFR Random Glucose Lactic Acid Calcium Magnesium Total Bilirubin Direct Bilirubin AST ALT Alkaline Phosphatase Troponin I High Sens B-Natriuretic Peptide Total Protein Albumin Ur Random Sodium 30.0 01/30/22 01/30/22 01/30/22 18:09 18:09 18:09 WBC RBC Hgb 9.2 L Hct 32.4 L MCV MCH MCHC RDW Plt Count MPV Absolute Nucleated RBC Nucleated RBC % (auto) Haptoglobin PT INR O2 Saturation ABG pH at Pt Temp ABG pCO2 at Pt Temp ABG pO2 at Pt Temp ABG HCO3 ABG Base Excess (Actual) VBG pH VBG pCO2 VBG pO2 VBG HCO3 VBG O2 Saturation VBG Base Excess Sodium 149 H Potassium 3.5 Chloride 119 H Carbon Dioxide 19 L Anion Gap 15 BUN 29 H Creatinine 1.47 H Estim Creat Clear Calc 59.1 Estimated GFR 46 Random Glucose 209 H D Lactic Acid Calcium 7.6 L Magnesium Total Bilirubin Direct Bilirubin AST ALT Alkaline Phosphatase Troponin I High Sens 12.9 D B-Natriuretic Peptide Total Protein Albumin Ur Random Sodium 01/30/22 18:09 WBC RBC Hgb Hct MCV MCH MCHC RDW Plt Count MPV Absolute Nucleated RBC Nucleated RBC % (auto) Haptoglobin PT INR O2 Saturation ABG pH at Pt Temp ABG pCO2 at Pt Temp ABG pO2 at Pt Temp ABG HCO3 ABG Base Excess (Actual) VBG pH VBG pCO2 VBG pO2 VBG HCO3 VBG O2 Saturation VBG Base Excess Sodium Potassium Chloride Carbon Dioxide Anion Gap BUN Creatinine Estim Creat Clear Calc Estimated GFR Random Glucose Lactic Acid 2.7 H* Calcium Magnesium Total Bilirubin Direct Bilirubin AST ALT Alkaline Phosphatase Troponin I High Sens B-Natriuretic Peptide Total Protein Albumin Ur Random Sodium Microbiology Microbiology Results: Microbiology 01/27/22 13:46 Blood - Venous Blood Culture - Preliminary No growth after 48 hours. 01/27/22 13:46 Blood - Venous Blood Culture - Preliminary No growth after 48 hours. 01/27/22 20:25 Sputum - Suctioned Gram Stain - Final 01/27/22 20:25 Sputum - Suctioned Sputum Culture - Final Quality Stroke Does the patient have a stroke diagnosis?: No VTE Prior VTE?: No VTE Risk Level:: Medical - moderate - high VTE Device Contraindication: Treatment Not Indicated VTE Drug Contraindication: Treatment Not Indicated Critical Care Time Critical Care Time (minutes): 90
[2022-01-30 19:36] LABS: ABG Base Excess -1.3 mmol/L; ABG HCO3 22 mmol/L (22-26); ABG pCO2 35 mmHg (32-45); ABG pH 7.41 (7.35-7.45); ABG pO2 160 mmHg (83-108)
--- NOTE | 2022-01-30 19:39 | W.PM.CCHP ---
Procedures Date of Service Date of Service: 01/30/22 Arterial Line Arterial Line Comments: PROCEDURE:? Insertion right femoral arterial line. Indications:? Cardiac arrest; for hemodynamic monitoring. Anesthesia:? None. The right groin examined with ultrasound and the artery was marked. The groin was prepped and draped. The first stick with the 20g thin wall punctured the femoral vein. The needle was removed and pressure held. The femoral artery was then identified with ultrasound and the artery was cannulated. The wire was unable to be threaded. The needle and wire were removed and pressure held. The artery was then cannulated again with the 20 gauge thin wall and the wire advanced without incident.? The arrow 20g x 5? femoral arterial cannula was inserted via Seldinger technique without complications and sutured in place with 3-0 silk x 3.? There was an excellent wave form.?? A biopatch and dry sterile dressing were applied. The patient tolerated the procedure well with no complications. Consent: Emergent-no informed consent obtained
[2022-01-30 20:04] LABS: Lactic Acid 1.6 mmol/L (0.5-2.0)
[2022-01-30] MEDS: Lithium Carbonate 300 MG CAPSULE PO (20:10)
[2022-01-30] MEDS: Metoprolol Tartrate 25 MG TABLET PO (20:10)
[2022-01-30] MEDS: Aspirin 325 MG TABLET PO (20:10)
[2022-01-30] MEDS: Atorvastatin Calcium 80 MG TABLET PO (20:11)
[2022-01-30 20:13] LABS: Reflex Lactate? Lactic Acid Added
[2022-01-30 20:16] LABS: Phosphorus 2.8 mg/dL (2.7-4.5)
--- NOTE | 2022-01-30 20:16 | P.DS_ITS ---
DS: Providers Provider Date of Service: 01/30/22 Date of admission: 01/22/22 17:27 Date of discharge: 01/30/22 Primary care physician: Manjit Roy MD Admitting clinician: Reid Solis Attending physician on admission: Reid Solis Consults: 01/24/22 13:41 Consult to Psychiatry Routine Consulting Provider: Eric Pereira Reason for consultation: [place] toxicity Has provider been notified: No 01/27/22 19:51 Consult to Cardiology Routine Consulting Provider: Fly Martini Reason for consultation: Cardiomyopathy Has provider been notified: Yes 01/28/22 11:54 Consult to Gastroenterology Routine Consulting Provider: Len Gibbs Reason for consultation: UGI bleed Has provider been notified: Yes 01/30/22 13:55 Consult to Neurology Routine Consulting Provider: [facility] Reason for consultation: Failure to awaken Has provider been notified: Yes Attending physician on discharge: Reid Solis Discharging clinician: Rigo Prieto DS: Transfer Hospital Acceptance Reason for Transfer: NSTEMI, post Cardiac Arrest 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 MUNOZ DS: Diagnosis Discharge Diagnosis (1) Cardiomyopathy: Status: Acute (2) Atrial flutter: Status: Acute (3) Cardiac pacemaker in situ: Status: Acute DS: Summary Hospital Course Hospital Course: ADMISSION / DISCHARGE DIAGNOSIS: 1. Post cardiac arrest with underlying Torsades and Vfib likely ischemic causes NSTEMI on ASA, max statin, BB; no Heparin per [employer] Table Clerk especially given this am INR of 2.2 and recent GIB; PT IS NOT on coumadin now. 2. Underlying Parkinson?s disease.? 3. Underlying depression/bipolar disease, on [place], was to be restarted today 4. Underlying afib/flutter on Coumadin, with supratherapeutic level/coagulopathy on admission 6. PPM for sick sinus syndrome 7. Underlying hypothyroidism, on thyroxine. 8. FTT for the month prior to admission, for unclear reasons.? 9. New fever, altered MS, acute respiratory failure on January 27.? Likely aspiration. 10. Failure to awaken/persistent encephalopathy of unclear etiology off Sedative agents without improvement. 11. UGI bleed identified esophageal ulcer on EGD, ?on ?bid PPI and Carafate.? ?12. Acute respiratory failure.? Likely 2? aspiration. ?Mechanically, he should be extubatable once he becomes more awake. ?13. CMOP.? Discussed at length with Dr. Martini.? Most likely either rate related, or [place]; however now likely ischemic after ?14. Hypotension.? 2? either to SIRS or the CMOP.? Don?t? think he?s septic.? Echo indicated that he was volume replete.? Target MAP now is 60 mm. ?15. AUGUST.? Most likely 2? the acute episode January 27 and SIRS (i.e. ATN).? At least he?s not oliguric. ?16. Hypernatremia.? He?s also hypovolemic now.? I?ll give him a liter of D5W, then D5W IV and water flushes w his tube feed. ?17. Thrombocytopenia.? Labs show this is chronic, dating back as far as 2018.? Confirmed w Dr. Roy.? Don?t know the cause. ?18. Nutrition.? Started on Promote. Active medications at discharge: Aspirin 325 mg NGT. daily Atorvastatin 80 mg NGT at bedtime Wellbutrin 100 mg via NGT t.i.d. Carbidopa levodopa 25/100 tablet NGT q.i.d. Dextrose 5% IV continuous 100 mL/hour Albuterol sulfate nebulizers every 4 hours as needed 0.9% NaCl IV flushes 3 mL Folic acid 1 mg via NGT daily Levothyroxine 50 mcg via NGT daily [place] carbonate 300 mg NGT b.i.d. Metoprolol tartrate 25 mg via NGT b.i.d. Zofran 4 mg IV push every 8 hours as needed Pantoprazole sodium 40 mg IV q.12 hours Sucralfate oral suspension 1 g NGT q.6 hours HPI / HOSPITAL COURSE: I talked to Stacy; pt's HCP to let her know about the transfer to [facility] and she agrees; her number is [phone] Today?s most recent event: At about 16:36, Mr. Cloud had a roughly 5 sec episode of what looks like Torsades that terminated spontaneously.? That was followed a few seconds later by a 4-beat run that self terminated. While we were checking labs and preparing to hang Magnesium, at about 1701, he went into what looks like sustained Torsades.? He had no pulse.? CPR was started immediately.? The rhythm deteriorated into VFib.? A 200 joule countershock was administered.? He continued to be in VFib. ?Another shock was administered which converted him into a pulsatile rhythm which looks to me like either atrial flutter or sinus rhythm with a first-degree AV block.? Total duration of CPR was 11 minutes.? During the code, he was given a total of 3 mg of epinephrine. Post code, Dr Solis put an arterial line in the R femoral artery.? EKG shows sinus rhythm with first-degree AV block with ischemic changes in the anterolateral leads. ?CXR shows increased batwing airspace disease in the perihilar distribution concerning for worsened pulmonary edema. Bedside echo done by Dr. Solis post cardiac arrest:? LV contractility is globally hypokinetic, with possibly worse wall motion at the base and in the septum.? EF looks about 20%, which is actually better than previously.? Continuous wave Doppler off the tricuspid valve measured 2.0 m/sec.? IVC is dilated w minimal insp collapse. Discussed with Dr. Martini.? This appears ischemia mediated.? Suggests transfer to [facility] for cath.? He has called ?the scanning supervisor there and the patient is accepted by Dr. Munoz. ADMISSION and H. COURSE HISTORY Mr. Cloud was transferred to the ICU January 27 after emergent tracheal intubation on C. The patient is a 76 yo M with PMHx of Parkinson?s disease, depression/bipolar disease on [place], atrial fibrillation/flutter on Coumadin, PPM for sick sinus syndrome, asthma, DJD, high cholesterol, HTN, hypothyroidism, irritable bowel syndrome, and peripheral neuropathy.? Labs show a long h/o thrombocytopenia NOS. The patient was BIBA to the ED on January 22 bec of worsening weakness and FTT for last 1 - 1.5 weeks, and hallucinating and falling at home. Pt?s PCP said that the patient had been failing for about a month.? But his caregiver was giving him his medications in the exact amounts prescribed (i.e. he didn?t fail to take his meds, or take too much of his meds).? Of note, baseline creat is about 1.2.? On 5/12, lab draw at this PMD showed creat 1.5.? Hb was 11, compared to baseline of about 13-14. ED workup notable for low blood pressures, AUGUST, BNP of 1391, lithium level 1.95, INR 10.? Treated with IV fluids, vitamin K, FFP.? CT abdomen and chest were negative for important findings.? He was admitted to medicine for management of hypotension, hypovolemia, AUGUST, lithium toxicity w encephalopathy, supratherapeutic INR, and failure to thrive. Over the next few days, his mental status improved and he became more appropriate as his lithium level came down.? His blood pressure and acute kidney injury improved with hydration.? INR improved and his EKG showed a paced ventricular rhythm on beta blockers.? He restarted Coumadin on January 23.? His dose of Coumadin was being slowly increased. On the morning of January 27, the patient was found to have a temperature 101.1 degrees.? An hour later at about 9am, the patient was found unresponsive.? A code blue was called.? The patient was breathing and never lost his spont circulation.? His respiratory effort was grossly inadequate.? Initial attempts at intubation resulted in regurgitation of copious black/maroon liquidy GI contents, but without clinical aspiration.? On successful intubation, staining of the glottis with that blackish/maroonish liquid was noted, but there was no reflux of that fluid into the endotracheal tube after intubation.? The patient was then transferred to the ICU. Post intubation CXR suggested a right mid-lung infiltrate, but FiO2 was rapidly tapered to 25%.? He had no further UGI bleeding, and no melena.? Hb was stable.? He required low dose Levophed.? He spiked a temp.? We put him on Unasyn. ECHO showed: ?1. Dilated LV w severe global hypokinesis, EF 15-20%. ?2. RV is mildly increased size, also hypokinetic. ?3. Mild biatrial enlargement. ?4. Trace MR. ?5. Mild TR w CWD measuring 2.6 m/sec (gradient 27mm). ?6. IVC 2.5 cm with minimal insp collapse.? RVSP estimate 42mm (which underestimates PVR bec of the low EF). The patient underwent EGD January 28.? He was found to have a prominent esophageal ulcer -- couldn?t say whether he bled from that or the ulcer was 2? to the OG tube.? Also found esophagitis, erosive gastritis, and duodenitis.? We pulled the OG tube.? Plan was to continue him on high-dose PPI, and start Carafate once he is extubated and able to eat.? Could be reanticoagulated starting in 3 days (Tuesday) if everything goes well. We turned the propofol off January 28.? He?s been easily arousable since then, and makes eye opening movements, but doesn?t become clearly awake, and has been unresponsive to commands.? He did well for some hours on PSV, but gets dysynchronus, tachycardic, tachypneic, and hypertensive with suctioning, so we?ve had to break that with fentanyl boluses, and we?ve put him on AC ventilation. On exam this morning, on only fentanyl 50ug, he opens eyes readily, but is 100% noninteractive to command.? He withdraws to pain.? Doesn?t track, no response to confrontation.? HR 64 v-paced, with underlying Afib.? BP 120/63 off Levophed.? NOW On AC 10/450/50%/+8, RR is 12, Ve 5.0L, PiP 27cm, ETCO2 43mm, Sat 95%. ?CVBG this morning showed 7.36/42/0.? Afebrile. ?No JVD at 30 degrees.? Chest is clear to auscultation, with normal expiratory phase.? Heart tones are very soft.? I heard no murmur or gallops.? Abdomen is large and benign.? He has 1-2+ peripheral and central edema. LABORATORY DATA:? As below.? Notably, white count is down to 7, Hb down slightly to 9.3; platelets down to 40K; PT off Coumadin down to 25/2.2, BUN/creatinine down to 32/1.4. He has a Kaofeed tube down.? CXR shows it?s at the pylorus. Pending results of 3 hr troponin and repeat ABG Case disscussed in detail with Dr. Solis, he is aware and in agreement with all the above. ? Time Spent with Patient Time attestation: Total time spent providing and/or coordinating discharge services: Discharge coordination time: Greater than 30 minutes Specific discharge activities: Med rec, dc summary and coordination with Quality: Safe Use of Opioids Does Pt have an Active Cancer Diagnosis on the Problem List?: No Quality: Stroke Does the patient have a stroke diagnosis?: No Physical Exam Vital Signs: Vital Signs: Last Vital Signs Temp 100.8 F H 01/30/22 20:00 Pulse 69 01/30/22 20:00 Resp 15 01/30/22 20:00 BP 119/42 L 01/30/22 20:00 Pulse Ox 96 01/30/22 20:00 BMI result Body Mass Index 35.4 DS: Data Data Completed and Pending Labs on day of discharge: Laboratory Results - last 24 hr 01/29/22 01/30/22 01/30/22 05:14 05:20 05:20 WBC 7.2 RBC 3.18 L Hgb 9.3 L Hct 33.2 L MCV 104.4 H MCH 29.2 MCHC 28.0 L RDW 16.4 H Plt Count 40 L D MPV 12.3 Absolute Nucleated RBC 0.040 H Nucleated RBC % (auto) 0.6 H Haptoglobin 226 H PT INR O2 Saturation ABG pH at Pt Temp ABG pCO2 at Pt Temp ABG pO2 at Pt Temp ABG HCO3 ABG Base Excess (Actual) VBG pH VBG pCO2 VBG pO2 VBG HCO3 VBG O2 Saturation VBG Base Excess Sodium 152 H Potassium 3.9 Chloride 120 H Carbon Dioxide 22 Anion Gap 14 BUN 32 H Creatinine 1.46 H Estim Creat Clear Calc 59.6 Estimated GFR 47 Random Glucose 87 Lactic Acid Calcium 8.0 L Phosphorus Magnesium 2.4 Total Bilirubin 2.8 H Direct Bilirubin AST 407 H ALT 663 H Alkaline Phosphatase 141 H D Troponin I High Sens B-Natriuretic Peptide Total Protein 5.3 L Albumin 2.9 L Ur Random Sodium 01/30/22 01/30/22 01/30/22 05:20 05:20 05:20 WBC RBC Hgb Hct MCV MCH MCHC RDW Plt Count MPV Absolute Nucleated RBC Nucleated RBC % (auto) Haptoglobin PT 25.2 H INR 2.2 H O2 Saturation ABG pH at Pt Temp ABG pCO2 at Pt Temp ABG pO2 at Pt Temp ABG HCO3 ABG Base Excess (Actual) VBG pH VBG pCO2 VBG pO2 VBG HCO3 VBG O2 Saturation VBG Base Excess Sodium Potassium Chloride Carbon Dioxide Anion Gap BUN Creatinine Estim Creat Clear Calc Estimated GFR Random Glucose Lactic Acid Calcium Phosphorus Magnesium Total Bilirubin Direct Bilirubin 2.0 H AST ALT Alkaline Phosphatase Troponin I High Sens B-Natriuretic Peptide 2252 H Total Protein Albumin Ur Random Sodium 01/30/22 01/30/22 01/30/22 05:34 16:51 17:53 WBC RBC Hgb Hct MCV MCH MCHC RDW Plt Count MPV Absolute Nucleated RBC Nucleated RBC % (auto) Haptoglobin PT INR O2 Saturation 97.0 ABG pH at Pt Temp 7.38 ABG pCO2 at Pt Temp 32 ABG pO2 at Pt Temp 89 ABG HCO3 19 L ABG Base Excess (Actual) -4.3 VBG pH 7.36 VBG pCO2 42 VBG pO2 49 VBG HCO3 24 VBG O2 Saturation 72.0 VBG Base Excess -0.5 Sodium Potassium Chloride Carbon Dioxide Anion Gap BUN Creatinine Estim Creat Clear Calc Estimated GFR Random Glucose Lactic Acid Calcium Phosphorus Magnesium Total Bilirubin Direct Bilirubin AST ALT Alkaline Phosphatase Troponin I High Sens B-Natriuretic Peptide Total Protein Albumin Ur Random Sodium 30.0 01/30/22 01/30/22 01/30/22 18:09 18:09 18:09 WBC RBC Hgb 9.2 L Hct 32.4 L MCV MCH MCHC RDW Plt Count MPV Absolute Nucleated RBC Nucleated RBC % (auto) Haptoglobin PT INR O2 Saturation ABG pH at Pt Temp ABG pCO2 at Pt Temp ABG pO2 at Pt Temp ABG HCO3 ABG Base Excess (Actual) VBG pH VBG pCO2 VBG pO2 VBG HCO3 VBG O2 Saturation VBG Base Excess Sodium 149 H Potassium 3.5 Chloride 119 H Carbon Dioxide 19 L Anion Gap 15 BUN 29 H Creatinine 1.47 H Estim Creat Clear Calc 59.1 Estimated GFR 46 Random Glucose 209 H D Lactic Acid Calcium 7.6 L Phosphorus Magnesium Total Bilirubin Direct Bilirubin AST ALT Alkaline Phosphatase Troponin I High Sens 12.9 D B-Natriuretic Peptide Total Protein Albumin Ur Random Sodium 01/30/22 01/30/22 01/30/22 18:09 19:27 19:30 WBC RBC Hgb Hct MCV MCH MCHC RDW Plt Count MPV Absolute Nucleated RBC Nucleated RBC % (auto) Haptoglobin PT INR O2 Saturation 100.0 ABG pH at Pt Temp 7.41 ABG pCO2 at Pt Temp 35 ABG pO2 at Pt Temp 160 H ABG HCO3 22 ABG Base Excess (Actual) -1.3 VBG pH VBG pCO2 VBG pO2 VBG HCO3 VBG O2 Saturation VBG Base Excess Sodium Potassium Chloride Carbon Dioxide Anion Gap BUN Creatinine Estim Creat Clear Calc Estimated GFR Random Glucose Lactic Acid 2.7 H* 1.6 Calcium Phosphorus Magnesium Total Bilirubin Direct Bilirubin AST ALT Alkaline Phosphatase Troponin I High Sens B-Natriuretic Peptide Total Protein Albumin Ur Random Sodium 01/30/22 19:34 WBC RBC Hgb Hct MCV MCH MCHC RDW Plt Count MPV Absolute Nucleated RBC Nucleated RBC % (auto) Haptoglobin PT INR O2 Saturation ABG pH at Pt Temp ABG pCO2 at Pt Temp ABG pO2 at Pt Temp ABG HCO3 ABG Base Excess (Actual) VBG pH VBG pCO2 VBG pO2 VBG HCO3 VBG O2 Saturation VBG Base Excess Sodium Potassium Chloride Carbon Dioxide Anion Gap BUN Creatinine Estim Creat Clear Calc Estimated GFR Random Glucose Lactic Acid Calcium Phosphorus 2.8 Magnesium Total Bilirubin Direct Bilirubin AST ALT Alkaline Phosphatase Troponin I High Sens B-Natriuretic Peptide Total Protein Albumin Ur Random Sodium Preliminary micro results at discharge 01/27/22 13:46 Blood Culture - Preliminary Blood - Venous No growth after 48 hours. 01/27/22 13:46 Blood Culture - Preliminary Blood - Venous No growth after 48 hours. Discharge Plan Discharge Patient Disposition: Xfer Acute [facility] Discharge Diagnosis: NSTEMI post Cardiac Arrest Referrals: Manjit Roy MD [Primary Care Provider] - 1 Week Discharge Medications: No Action atorvastatin 20 mg tablet 20 mg PO BEDTIME 0RF folic acid 1 mg tablet 1 tab PO DAILY 0RF albuterol sulfate 90 mcg/actuation HFA aerosol inhaler 2 puff inhalation Q4H PRN (Reason: Wheezing) 0RF metoprolol succinate 50 mg tablet extended release 24 hr 50 mg PO DAILY 0RF carbidopa-levodopa 25-100 mg tablet 1 tab PO QID 0RF gabapentin 300 mg capsule 600 mg PO BEDTIME 0RF warfarin 5 mg tablet 5 mg PO DAILY 0RF levothyroxine 50 mcg capsule 50 mcg PO DAILY 0RF warfarin 1 mg tablet 1 mg PO Q48H 0RF bupropion HCl 300 mg tablet extended release 24 hr 300 mg PO QAM 0RF lithium carbonate 300 mg capsule 300 mg PO BID 0RF Discharge Orders: Discharge Order (Routine); Ordered 01/30/22 Ordered By: Rigo Prieto Activity on Discharge: PROMOTE Stand Alone Forms: Patient Portal Discharge page Care Plan Goals: PER NEW FACILITY Health Concerns: PER NEW FACILITY Plan of Treatment: cARDIAC CATH Assessment: ABOVE Discharge Date/Time: 01/30/22 21:26
[2022-01-30 21:12] LABS: ABG Refer to POC result
[2022-01-30 21:13] LABS: ABG Refer to POC result
[2022-01-30 21:21] LABS: ~Lactic Acid-LAB USE ONLY 1.3 mmol/L (0.5-2.0)
[2022-01-30 21:41] LABS: Troponin-I High Sensitivity 51.8 ng/L (<3.5-35.0)
--- NOTE | 2022-01-30 22:55 | PC.NURSE ---
Patient went into cardiac arrest earlier today. Following had an NSTEMI. Patient on ventilator, no sedation, VSS. V-paced on telemetry. To be transferred to [facility] for cardiac catheterization via [facility].
== END 2022-01-30 21:26 | disposition short-term general hospital (02) | DRG 91 ==
LOC: HO.ED 13:43 → HO.EDOVER 17:37 → HO.S3 21:58 → HO.IMC 01-26 14:19 → HO.ICU 01-27 09:27
PROVIDERS: Hospitalist; Internal Medicine Gastroenterology; Nurse Practitioner Psychiatric/Mental Health; Physician Assistant Medical; Admitting Provider Anesthesiology; Emergency Provider Emergency Medicine; PCP Family Medicine; Visit Provider Anesthesiology
PROC: 0DJ08ZZ Inspection of Upper Intestinal Tract, Via Natural or Artificial Opening Endoscopic (ICD-10-PCS; CPT 43235; principal; 2022-01-28 14:30)
DX: G92.8 Other toxic encephalopathy (principal); J96.01 Acute respiratory failure with hypoxia; J69.0 Pneumonitis due to inhalation of food and vomit; K22.11 Ulcer of esophagus with bleeding; K29.71 Gastritis, unspecified, with bleeding; K29.81 Duodenitis with bleeding; I46.9 Cardiac arrest, cause unspecified; R65.10 Systemic inflammatory response syndrome (SIRS) of non-infectious origin without acute organ dysfunction; N17.9 Acute kidney failure, unspecified; I51.81 Takotsubo syndrome; I47.2 Ventricular tachycardia; I49.5 Sick sinus syndrome; E03.9 Hypothyroidism, unspecified; G20 Parkinson's disease; I95.9 Hypotension, unspecified; I48.0 Paroxysmal atrial fibrillation; E78.5 Hyperlipidemia, unspecified; R62.7 Adult failure to thrive; F31.9 Bipolar disorder, unspecified; R91.1 Solitary pulmonary nodule; E86.0 Dehydration; K31.7 Polyp of stomach and duodenum; T43.595A Adverse effect of other antipsychotics and neuroleptics, initial encounter; Z68.35 Body mass index [BMI] 35.0-35.9, adult; D69.6 Thrombocytopenia, unspecified; I44.0 Atrioventricular block, first degree; R79.1 Abnormal coagulation profile; Z20.822 Contact with and (suspected) exposure to COVID-19; Z95.0 Presence of cardiac pacemaker; Z88.8 Allergy status to other drugs, medicaments and biological substances; Z79.01 Long term (current) use of anticoagulants; Z79.890 Hormone replacement therapy; Z79.899 Other long term (current) drug therapy
CPT/HCPCS: 36415; 36430; 36600; 70450; 71045; 71250; 72125; 74176; 80048; 80053; 80076; 80143; 80178; 80179; 81001; 81003; 82140; 82248; 82550; 82565; 82607; 82746; 82803; 83010; 83605; 83615; 83690; 83735; 83880; 84100; 84145; 84300; 84443; 84484; 85014; 85018; 85025; 85027; 85610; 85730; 86850; 86900; 86901; 87040; 87070; 87205; 87633; 87635; 93005; 93306; 94002; 94003; 94799; 96361; 96374; 97162; 99285; J0171; J0295; J2543; J3010; J3430; J3475; P9017; P9047

== ENCOUNTER 2022-03-25 13:00 | Outpatient (REF) | payer SELFPAY | END 2022-03-25 13:01 | disposition home or self-care (01) | LOC: HO.LHD 13:00 | PROVIDERS: Visit Provider Family Medicine | DX: Z13.89 Encounter for screening for other disorder (principal) ==